=== PATIENT | male | born 1960 | race American Indian/Alaskan Native ===

== ENCOUNTER 2018-12-21 16:33 | Inpatient (IN) | payer OTHER ==
[2018-12-21] MEDS ORDERED: NACL 0.9% 1000 ML 1,000 ML IV ONE ×3 (16:42→18:44)
--- NOTE | 2018-12-21 16:46 | Emergency Department Report ---
ED General Adult HPI - General Stated complaint: HIGH BLOOD SUGAR Time Seen by Provider: 12/21/18 16:41 Source: patient, EMS Mode of arrival: Stretcher Limitations: No Limitations - History of Present Illness Initial comments: Patient is a 58-year-old male presents emergency room with complaints of weakness and lightheadedness 1 week. Patient states he ran out of his diabetes and high blood pressure medication. Patient denies chest pain shortness of breath. Patient has been having some nausea and vomiting. Patient states he has been drinking today. Patient denies smoking. Patient states his symptoms are better with rest and worse with exertion and movement. -: Sudden Quality: constant Consistency: constant Improves with: rest Worsens with: movement Associated Symptoms: nausea/vomiting, weakness. denies: confusion, chest pain, cough, diaphoresis, fever/chills, headaches, loss of appetite, malaise, rash, seizure, shortness of breath, syncope - Related Data Allergies Allergy/AdvReac Type Severity Reaction Status Date / Time No Known Allergies Allergy Verified 12/21/18 18:50 ED Review of Systems ROS: Stated complaint: HIGH BLOOD SUGAR Other details as noted in HPI Constitutional: weakness. denies: chills, fever Eyes: denies: eye pain, eye discharge, vision change ENT: denies: ear pain, throat pain Respiratory: denies: cough, shortness of breath, wheezing Cardiovascular: denies: chest pain, palpitations Endocrine: no symptoms reported Gastrointestinal: denies: abdominal pain, nausea, diarrhea Genitourinary: denies: urgency, dysuria Musculoskeletal: denies: back pain, joint swelling, arthralgia Skin: denies: rash, lesions Neurological: weakness. denies: headache, paresthesias Psychiatric: denies: anxiety, depression Hematological/Lymphatic: denies: easy bleeding, easy bruising ED Past Medical Hx - Past Medical History Previous Medical History?: Yes Hx Hypertension: Yes Hx Diabetes: Yes - Surgical History Past Surgical History?: No - Family History Family history: no significant - Social History Smoking Status: Never Smoker Substance Use Type: Alcohol ED Physical Exam - General Limitations: No Limitations General appearance: alert, in no apparent distress - Head Head exam: Present: atraumatic, normocephalic - Eye Eye exam: Present: normal appearance - ENT ENT exam: Present: mucous membranes dry - Neck Neck exam: Present: normal inspection - Respiratory Respiratory exam: Present: normal lung sounds bilaterally. Absent: respiratory distress, wheezes, rales - Cardiovascular Cardiovascular Exam: Present: regular rate, normal rhythm. Absent: systolic murmur, diastolic murmur, rubs, gallop - GI/Abdominal GI/Abdominal exam: Present: soft, normal bowel sounds. Absent: distended, tenderness, guarding - Rectal Rectal exam: Present: deferred - Extremities Exam Extremities exam: Present: normal inspection - Back Exam Back exam: Present: normal inspection - Neurological Exam Neurological exam: Present: alert, oriented X3 - Psychiatric Psychiatric exam: Present: normal affect, normal mood - Skin Skin exam: Present: warm, dry, intact, normal color. Absent: rash ED Course Vital Signs 12/21/18 12/21/18 12/21/18 16:53 16:55 17:15 Temperature Pulse Rate 94 H 95 H 97 H Respiratory 22 18 Rate Blood Pressure 150/79 Blood Pressure 150/79 [Left] O2 Sat by Pulse 100 95 Oximetry 12/21/18 12/21/18 12/21/18 17:26 17:28 18:18 Temperature 94.8 F L Pulse Rate 106 H Respiratory 22 21 Rate Blood Pressure Blood Pressure 159/104 [Left] O2 Sat by Pulse 98 100 Oximetry 12/21/18 12/21/18 12/21/18 18:31 18:45 19:00 Temperature 95.7 F L Pulse Rate 108 H 104 H 101 H Respiratory 25 H 22 19 Rate Blood Pressure 159/104 129/73 Blood Pressure 129/73 [Left] O2 Sat by Pulse 100 100 100 Oximetry 12/21/18 12/21/18 12/21/18 19:15 19:31 20:02 Temperature Pulse Rate 100 H 101 H Respiratory 24 21 Rate Blood Pressure 132/88 Blood Pressure [Left] O2 Sat by Pulse 100 100 Oximetry - Reevaluation(s) Reevaluation #1: I discussed all results with patient. I discussed plan of care outpatient. Patient agrees with plan of care and admission. Patient will be admitted to the hospital service. 12/21/18 18:46 - Consultations Consultation #1: Hospitalist consultation for admission. Hospitalist to admit patient and assume care of patient. 12/21/18 18:47 ED Medical Decision Making - Lab Data Result diagrams: 12/21/18 17:11 07/26/19 00:26 - EKG Data -: EKG Interpreted by Me EKG shows normal: sinus rhythm, axis, intervals, QRS complexes, ST-T waves Rate: normal - Radiology Data Radiology results: report reviewed, image reviewed interpreted by me: No acute findings on chest x-ray CHEST 1 VIEW INDICATION / CLINICAL INFORMATION: Lightheadedness. COMPARISON: None available. FINDINGS: SUPPORT DEVICES: None. HEART / MEDIASTINUM: No significant abnormality. LUNGS / PLEURA: No significant pulmonary or pleural abnormality. No pneumothorax. ADDITIONAL FINDINGS: No significant additional findings. IMPRESSION: 1. No acute findings. Nonenhanced CT scan of the brain: INDICATION: Lightheadedness. TECHNIQUE: Routine CT head without contrast. Sagittal and coronal reformatted images were obtained. All CT scans at this location are performed using CT dose reduction for ALARA by means of automated exposure control. COMPARISON: None. FINDINGS: BRAIN / INTRACRANIAL CONTENTS: No acute hemorrhage, mass effect, midline shift, hydrocephalus, or acute, large territorial infarct. Focal white matter low density areas seen in the posterior moran radiata the left side. This is a focal area of chronic ischemia. Mild cortical involution is seen. No significant white matter abnormality CRANIOCERVICAL JUNCTION: No significant abnormality. ORBITS: No significant abnormality of visualized orbits. SINUSES / MASTOIDS: No significant abnormality of the visualized paranasal sinuses or mastoid air cells. ADDITIONAL FINDINGS: None. IMPRESSION: I do not see an acute parenchymal lesion in the brain. - Medical Decision Making Patient is a 58-year-old male that presents to emergency with complaints of weakness and lightheadedness. Patient's symptoms. He secondary to DKA. Patient severely acidotic with elevated sugar and low bicarbonate. Patient's lab review. Patient's chest x-ray negative. Patient admitted to the hospitalist service. Patient started on DKA protocol including an insulin drip. Patient's temperature was low and patient was given warm blankets and His temperature improved. - Differential Diagnosis DKA. Weakness. Lightheadedness. Noncompliance Critical Care Time: Yes Critical care attestation.: If time is entered above; I have spent that time in minutes in the direct care of this critically ill patient, excluding procedure time. Critical Care Time: 45 minutes ED Disposition Clinical Impression: Lightheadedness, Weakness, Non-compliant patient, Hyperkalemia, Metabolic acidosis DKA (diabetic ketoacidoses) Qualifiers: Diabetes mellitus type: type 2 Diabetes mellitus complication detail: without coma Qualified Code(s): E11.10 - Type 2 diabetes mellitus with ketoacidosis without coma Acute renal failure Qualifiers: Acute renal failure type: unspecified Qualified Code(s): N17.9 - Acute kidney failure, unspecified Hypothermia Qualifiers: Encounter type: initial encounter Qualified Code(s): T68.XXXA - Hypothermia, initial encounter Disposition: DC-09 OP ADMIT IP TO THIS HOSP Is pt being admited?: Yes Does the pt Need Aspirin: No Condition: Critical Time of Disposition: 18:46
--- NOTE | 2018-12-21 17:13 | XRay Report ---
CHEST 1 VIEW INDICATION / CLINICAL INFORMATION: Lightheadedness. COMPARISON: None available. FINDINGS: SUPPORT DEVICES: None. HEART / MEDIASTINUM: No significant abnormality. LUNGS / PLEURA: No significant pulmonary or pleural abnormality. No pneumothorax. ADDITIONAL FINDINGS: No significant additional findings. IMPRESSION: 1. No acute findings. Signer Name: Kvng Gonzalez MD Signed: 12/21/2018 5:09 PM Workstation Name: [id number]
[2018-12-21 17:33] LABS: Basophils # (Auto) 0.1 K/mm3 (0.0-0.1); Basophils % (Auto) 0.9 % (0.0-1.8); Hematocrit 43.6 % (35.5-45.6); Hemoglobin 14.6 gm/dl (11.8-15.2); Lymphocytes # (Auto) 0.8 K/mm3 (1.2-5.4); Lymphocytes % (Auto) 11.4 % (13.4-35.0); Mean Corpuscular HGB Conc 34 % (32-34); Mean Corpuscular Volume 104 fl (84-94); Monocytes # (Auto) 0.3 K/mm3 (0.0-0.8); Monocytes % (Auto) 4.7 % (0.0-7.3); Red Blood Count 4.22 M/mm3 (3.65-5.03); Red Cell Distribution Width 15.4 % (13.2-15.2)
[2018-12-21 17:45] LABS: Platelet Count 239 K/mm3 (140-440)
[2018-12-21 17:56] LABS: Creatine Kinase MB 2.6 ng/mL (0.0-4.0)
[2018-12-21 17:57] LABS: Alanine Aminotransferase 16 units/L (7-56); Albumin 4.8 g/dL (3.9-5); BUN/Creatinine Ratio 14; Blood Urea Nitrogen 33 mg/dL (9-20); Calcium 10.5 mg/dL (8.4-10.2); Hemolysis Index 33
[2018-12-21] MEDS ORDERED: D50W (25GM) Syringe IV PRN (18:44)
[2018-12-21 18:54] LABS: Bacteria,Urine 1+ /HPF (Negative); Bilirubin,Urine NEG (Negative); Blood,Urine MOD (Negative); Color,Urine Yellow (Yellow); Hyaline Casts,Urine 4 /LPF; Mucus,Urine FEW /HPF; RBC,Urine < 1.0 /HPF (0.0-6.0); Urobilinogen,Urine < 2.0 mg/dL (<2.0)
[2018-12-21] MEDS ORDERED: SODIUM CHLORIDE FLUSH SYRINGE 10 ML IV PRN (19:17)
--- NOTE | 2018-12-21 19:21 | History and Physical Report ---
History of Present Illness Chief complaint: I feel like crap History of present illness: 58 YO Male with DM,HTN presents to ED for evaluation. Pt states that he ran out of all his medications approximately 1 week ago. Pt reports nausea and multiple episodes of vomiting over the past 2 days with worsening symptoms over the same time frame. Pt acknowledges polyuria, polydipsia, polyphagia. Pt acknowledges ETOH intake today. EMS notified, and upon arrival the patient was found to be in distress and transported to [facility]. Pt seen and evaluated in ED and found to have DKA complicated by Acute Kidney Injury, and Metabolic Acidosis. Pt initiated on DKA protocol and admitted to ICU. Pt treated with IVF resuscitation therapy with improvement in symptoms. Pt denies fever, chills, CP, Palpitations, Trauma, BRBPR, Skin rash, ingestion of food/water from new/different sources. No prior admission for review. All listed medication reconciled at time of exam. Past History Past Medical History: diabetes, hypertension Past Surgical History: No surgical history, Other (reviewed) Social history: single, alcohol abuse. denies: smoking Family history: diabetes, hypertension Medications and Allergies Allergies Allergy/AdvReac Type Severity Reaction Status Date / Time No Known Allergies Allergy Verified 12/21/18 18:50 Active Meds: Active Medications Dextrose (D50w (25gm) Syringe) 0 ml IV PRN PRN PRN Reason: Hypoglycemia Insulin Human Regular 100 (units/ Sodium Chloride) 100 mls @ 1 mls/hr IV TITR JOSELINE; Protocol Sodium Chloride (Nacl 0.9% 1000 Ml) 1,000 mls @ 999 mls/hr IV BOLUS ONE Stop: 12/21/18 19:44 Sodium Chloride (Sodium Chloride Flush Syringe 10 Ml) 10 ml IV BID JOSELINE Sodium Chloride (Sodium Chloride Flush Syringe 10 Ml) 10 ml IV PRN PRN PRN Reason: LINE FLUSH Review of Systems Constitutional: no weight loss, no weight gain, no fever, no chills Ears, nose, mouth and throat: no ear pain, no ear discharge, no tinnitis, no decreased hearing, no nose pain Cardiovascular: no chest pain, no orthopnea, no edema, no syncope Respiratory: no cough, no cough with sputum, no excessive sputum Gastrointestinal: nausea, vomiting, no abdominal pain, no diarrhea, no constipation, no hematemesis, no coffee ground emesis Genitourinary Male: no dysuria, no hematuria, no flank pain, no discharge, no urinary hesitancy Rectal: no pain, no incontinence, no bleeding Musculoskeletal: no neck pain, no shooting arm pain, no arm numbness/tingling, no low back pain, no shooting leg pain, no redness of joints Integumentary: no rash, no pruritis, no redness, no sores, no wounds, no j aundice Neurological: no head injury, no transient paralysis, no weakness, no parathesias, no numbness, no tingling, no syncope Psychiatric: no anxiety, no change in sleep habits, no sleep disturbances, no change in appetite Endocrine: polyphagia, excessive thirst, polydipsia, polyuria, nocturia, no cold intolerance, no heat intolerance, no flushing, no weight change Hematologic/Lymphatic: no easy bruising, no easy bleeding, no lymphadenopathy, no lymphedema Allergic/Immunologic: no urticaria, no allergic rhinitis, no wheezing Exam - Constitutional Vitals: Temp Pulse Resp BP Pulse Ox 94.8 F L 106 H 21 159/104 100 12/21/18 17:28 12/21/18 18:18 12/21/18 18:18 12/21/18 18:18 12/21/18 18:18 General appearance: Present: mild distress, cachectic - EENT Eyes: Present: PERRL ENT: hearing intact, clear oral mucosa - Neck Neck: Present: supple, normal ROM - Respiratory Respiratory effort: normal Respiratory: bilateral: CTA - Cardiovascular Heart Sounds: Present: S1 & S2. Absent: rub, click - Extremities Extremities: pulses symmetrical, No edema Peripheral Pulses: within normal limits - Abdominal General gastrointestinal: Present: soft, non-tender, non-distended, normal bowel sounds Male genitourinary: Present: normal - Integumentary Integumentary: Present: clear, warm, dry - Musculoskeletal Musculoskeletal: gait normal, strength equal bilaterally - Psychiatric Psychiatric: appropriate mood/affect, intact judgment & insight - Neurologic Neurologic: CNII-XII intact, moves all extremities Results - Labs CBC & Chem 7: 12/21/18 17:11 12/21/18 18:53 Labs: Abnormal lab results 12/21/18 12/21/18 12/21/18 Range/Units 17:05 17:11 17:11 MCV 104 H (84-94) fl MCH 35 H (28-32) pg RDW 15.4 H (13.2-15.2) % Lymph % (Auto) 11.4 L (13.4-35.0) % Lymph # 0.8 L (1.2-5.4) K/mm3 Seg Neutrophils % 83.0 H (40.0-70.0) % VBG pH (7.320-7.420) Potassium (3.6-5.0) mmol/L Chloride (98-107) mmol/L Carbon Dioxide (22-30) mmol/L BUN (9-20) mg/dL Creatinine (0.8-1.5) mg/dL Glucose (75-100) mg/dL POC Glucose > 500 H (70-105) Lactic Acid (0.7-2.0) mmol/L Calcium (8.4-10.2) mg/dL Total Creatine Kinase 32 L (55-170) units/L CK-MB (CK-2) Rel Index 8.1 H (0-4) Total Protein (6.3-8.2) g/dL 12/21/18 12/21/18 12/21/18 Range/Units 17:11 17:11 17:11 MCV (84-94) fl MCH (28-32) pg RDW (13.2-15.2) % Lymph % (Auto) (13.4-35.0) % Lymph # (1.2-5.4) K/mm3 Seg Neutrophils % (40.0-70.0) % VBG pH 7.018 L* (7.320-7.420) Potassium 5.7 H (3.6-5.0) mmol/L Chloride 94.7 L (98-107) mmol/L Carbon Dioxide 3 L* (22-30) mmol/L BUN 33 H (9-20) mg/dL Creatinine 2.4 H (0.8-1.5) mg/dL Glucose 770 H* (75-100) mg/dL POC Glucose (70-105) Lactic Acid 3.60 H* (0.7-2.0) mmol/L Calcium 10.5 H (8.4-10.2) mg/dL Total Creatine Kinase (55-170) units/L CK-MB (CK-2) Rel Index (0-4) Total Protein 8.7 H (6.3-8.2) g/dL 12/21/18 12/21/18 Range/Units 17:55 19:18 MCV (84-94) fl MCH (28-32) pg RDW (13.2-15.2) % Lymph % (Auto) (13.4-35.0) % Lymph # (1.2-5.4) K/mm3 Seg Neutrophils % (40.0-70.0) % VBG pH (7.320-7.420) Potassium (3.6-5.0) mmol/L Chloride (98-107) mmol/L Carbon Dioxide (22-30) mmol/L BUN (9-20) mg/dL Creatinine (0.8-1.5) mg/dL Glucose (75-100) mg/dL POC Glucose > 500 H (70-105) Lactic Acid 3.80 H* (0.7-2.0) mmol/L Calcium (8.4-10.2) mg/dL Total Creatine Kinase (55-170) units/L CK-MB (CK-2) Rel Index (0-4) Total Protein (6.3-8.2) g/dL Assessment and Plan - Patient Problems (1) TWIN (acute kidney injury) Current Visit: Yes Status: Acute Plan to address problem: IVF resuscitation therapy, monitor uop q shift, (2) EtOH dependence Current Visit: Yes Status: Acute Qualifiers: Complication of substance-induced condition: uncomplicated Plan to address problem: BAnana bag, CIWA protocol, thiamine, folic acid, multivitamin daily (3) DKA (diabetic ketoacidoses) Current Visit: No Status: Acute Qualifiers: Diabetes mellitus type: type 2 Diabetes mellitus complication detail: without coma Qualified Code(s): E11.10 - Type 2 diabetes mellitus with ketoacidosis without coma Plan to address problem: Admit to ICU: DKA protocol: IVF resuscitation therapy, Insulin drip, serial bmp, monitor anion gap, The high probability of a clinically significant, sudden or life threatening deterioration of the [endocrine, renal, neuro] system(s) required my full and direct attention, intervention and personal management. The aggregate critical care time was [65] minutes. This time is in addition to time spent performing reported procedures but includes the following: [x] Data Review and interpretation [x] Patient assessment and monitoring of vital signs [x] Documentation [x] Medication orders and management (4) Metabolic acidosis Current Visit: No Status: Acute Plan to address problem: IVF resuscitation therapy, treat dka, repeat bmp (5) DVT prophylaxis Current Visit: Yes Status: Acute Plan to address problem: SCD to BLE while in bed. prophylacitic heparin
[2018-12-21 19:23] LABS: Calcium 9.5 mg/dL (8.4-10.2)
[2018-12-21 19:30] LABS: Amphetamine Screen,Urine PRESUMPTIVE NEGATIVE; Benzodiazepines Screen,Urine PRESUMPTIVE NEGATIVE; Cannabinoid Screen,Urine PRESUMPTIVE NEGATIVE; Cocaine Screen,Urine PRESUMPTIVE NEGATIVE; Methadone Screen,Urine PRESUMPTIVE NEGATIVE; Opiate Screen,Urine PRESUMPTIVE NEGATIVE
[2018-12-21] MEDS: HumuLIN R 100 UNITS in NACL 0.9% 99 ML IV SCH (20:20)
--- NOTE | 2018-12-21 20:21 | Cat Scan Report ---
Nonenhanced CT scan of the brain: INDICATION: Lightheadedness. TECHNIQUE: Routine CT head without contrast. Sagittal and coronal reformatted images were obtained. A ll CT scans at this location are performed using CT dose reduction for ALARA by means of automated ex posure control. COMPARISON: None. FINDINGS: BRAIN / INTRACRANIAL CONTENTS: No acute hemorrhage, mass effect, midline shift, hydrocephalus, or acu te, large territorial infarct. Focal white matter low density areas seen in the posterior moran radi anthony the left side. This is a focal area of chronic ischemia. Mild cortical involution is seen. No sig nificant white matter abnormality CRANIOCERVICAL JUNCTION: No significant abnormality. ORBITS: No significant abnormality of visualized orbits. SINUSES / MASTOIDS: No significant abnormality of the visualized paranasal sinuses or mastoid air kely ls. ADDITIONAL FINDINGS: None. IMPRESSION: I do not see an acute parenchymal lesion in the brain. Signer Name: Chiquita Grewal MD Signed: 12/21/2018 8:17 PM Workstation Name: [id number]
[2018-12-21] MEDS ORDERED: ATIVAN IV PRN (20:31)
[2018-12-21 20:42] LABS: Calcium 9.9 mg/dL (8.4-10.2)
[2018-12-21] MEDS ORDERED: VITAMIN B-1 100 MG, FOLVITE 1 MG, INFUVITE 10 ML in NACL 0.9% 1000 ML 1,000 ML IV ONE (21:00)
[2018-12-21] MEDS: SODIUM CHLORIDE FLUSH SYRINGE 10 ML IV SCH (21:22)
[2018-12-21] MEDS: HEPARIN SUB-Q SCH (21:33)
[2018-12-21 23:18] LABS: Calcium 9.6 mg/dL (8.4-10.2)
[2018-12-22 00:47] LABS: Calcium 9.7 mg/dL (8.4-10.2)
[2018-12-22 05:46] LABS: Calcium 9.9 mg/dL (8.4-10.2)
[2018-12-22] MEDS: HumuLIN R 100 UNITS in NACL 0.9% 99 ML IV SCH (08:05)
[2018-12-22] MEDS: D5/0.45NS 1,000 ML IV SCH ×2 (08:20→17:03)
[2018-12-22] MEDS: THERAGRAN Tab PO SCH (09:43)
[2018-12-22] MEDS: HEPARIN SUB-Q SCH ×2 (09:43→22:04)
[2018-12-22] MEDS: FOLVITE PO SCH (09:43)
[2018-12-22] MEDS: VITAMIN B-1 PO SCH (09:43)
[2018-12-22] MEDS: SODIUM CHLORIDE FLUSH SYRINGE 10 ML IV SCH ×2 (09:44→22:06)
[2018-12-22 12:26] LABS: Calcium 10.2 mg/dL (8.4-10.2)
--- NOTE | 2018-12-22 12:57 | Consultation ---
History of Present Illness Consult date: 12/22/18 Requesting physician: SONIA CHAMORRO Reason for consult: other (DKA, Alcohol use disorder, Acute renal failure) History of present illness: 58 YO Male with DM,HTN presents to ED for evaluation. Pt states that he ran out of all his medications approximately 1 week ago. Patient reported nausea and multiple episodes of vomiting over the past 2 days with worsening symptoms over the same time frame. Patient acknowledges polyuria, polydipsia, polyphagia. Pt acknowledges ETOH intake today. EMS notified, and upon arrival the patient was found to be in distress and transported to [facility]. Patient was seen and evaluated in ED and found to have DKA complicated by Acute Kidney Injury, and Metabolic Acidosis. Pt initiated on DKA protocol and admitted to ICU. I have been consulted for critical care management. Patient was seen and examined. Vitals, labs, medications, chart and imaging reviewed. He is resting peacefully in bed, on insulin infusion at 4units/hour, AG of 25 with improving creatinine at 1.8. He has received a banana bag and is currently on CIWA protocol. REVIEW OF SYMPTOMS Constitutional: no weight loss, no weight gain, no fever, no chills Ears, nose, mouth and throat: no ear pain, no ear discharge, no tinnitis, no decreased hearing, no nose pain Cardiovascular: no chest pain, no orthopnea, no edema, no syncope Respiratory: no cough, no cough with sputum, no excessive sputum Gastrointestinal: nausea, vomiting, no abdominal pain, no diarrhea, no constipation, no hematemesis, no coffee ground emesis Genitourinary Male: no dysuria, no hematuria, no flank pain, no discharge, no urinary hesitancy Rectal: no pain, no incontinence, no bleeding Musculoskeletal: no neck pain, no shooting arm pain, no arm numbness/tingling, no low back pain, no shooting leg pain, no redness of joints Integumentary: no rash, no pruritis, no redness, no sores, no wounds, no bernice dice Neurological: no head injury, no transient paralysis, no weakness, no parathesias, no numbness, no tingling, no syncope Psychiatric: no anxiety, no change in sleep habits, no sleep disturbances, no change in appetite Endocrine: polyphagia, excessive thirst, polydipsia, polyuria, nocturia, no cold intolerance, no heat intolerance, no flushing, no weight change Past History Past Medical History: diabetes, hypertension Past Surgical History: No surgical history, Other (reviewed) Social history: single, alcohol abuse. denies: smoking Family history: diabetes, hypertension Medications and Allergies Allergies Allergy/AdvReac Type Severity Reaction Status Date / Time No Known Allergies Allergy Verified 12/21/18 18:50 Home Medications Medication Instructions Recorded Confirmed Last Taken Type No Known Home Medications [No 12/22/18 12/22/18 Unknown History Reported Home Medications] Active Meds: Active Medications Dextrose (D50w (25gm) Syringe) 0 ml IV PRN PRN PRN Reason: Hypoglycemia Folic Acid (Folvite) 1 mg PO QDAY [facility] Last Admin: 12/22/18 09:43 Dose: 1 mg Documented by: Heparin Sodium (Porcine) (Heparin) 5,000 unit SUB-Q Q12HR [facility] Last Admin: 12/22/18 09:43 Dose: 5,000 unit Documented by: Insulin Human Regular 100 (units/ Sodium Chloride) 100 mls @ 1 mls/hr IV TITR [facility]; Protocol Last Titration: 12/22/18 11:31 Dose: 3 units/hr, 3 mls/hr Documented by: Dextrose/Sodium Chloride (D5/0.45ns) 1,000 mls @ 125 mls/hr IV DIRECT [facility]SE[facility] Last Admin: 12/22/18 08:20 Dose: 125 mls/hr Documented by: Lorazepam (Ativan) 2 mg IV Q1HR PRN PRN Reason: CIWA-Ar 8-15 Multivitamins (Theragran Tab) 1 each PO QDAY [facility] Last Admin: 12/22/18 09:43 Dose: 1 each Documented by: Sodium Chloride (Sodium Chloride Flush Syringe 10 Ml) 10 ml IV BID [facility] Last Admin: 12/22/18 09:44 Dose: 10 ml Documented by: Sodium Chloride (Sodium Chloride Flush Syringe 10 Ml) 10 ml IV PRN PRN PRN Reason: LINE FLUSH Thiamine HCl (Vitamin B-1) 100 mg PO QDAY [facility] Last Admin: 12/22/18 09:43 Dose: 100 mg Documented by: Physical Examination Vital signs: Vital Signs Pulse 94 H 12/21/18 16:53 General appearance: Present:no distress, dishevelled - EENT Eyes: Present: PERRL ENT: hearing intact, clear oral mucosa - Neck Neck: Present: supple, normal ROM - Respiratory Respiratory effort: normal Respiratory: bilateral: CTA - Cardiovascular Heart Sounds: Present: S1 & S2. Absent: rub, click - Extremities Extremities: pulses symmetrical, No edema Peripheral Pulses: within normal limits - Abdominal General gastrointestinal: Present: soft, non-tender, non-distended, normal bowel sounds Male genitourinary: Present: normal - Integumentary Integumentary: Present: clear, warm, dry - Musculoskeletal Musculoskeletal: gait normal, strength equal bilaterally - Psychiatric Psychiatric: appropriate mood/affect, intact judgment & insight - Neurologic Neurologic: CNII-XII intact, moves all extremities Results - Laboratory Findings CBC and BMP: 12/21/18 17:11 12/22/18 11:22 Abnormal lab findings: Abnormal Labs 12/21/18 12/21/18 12/21/18 17:05 17:11 17:11 MCV 104 H MCH 35 H RDW 15.4 H Lymph % (Auto) 11.4 L Lymph # 0.8 L Seg Neutrophils % 83.0 H VBG pH Sodium Potassium Chloride Carbon Dioxide BUN Creatinine Glucose POC Glucose > 500 H Lactic Acid Calcium Phosphorus Total Creatine Kinase 32 L CK-MB (CK-2) Rel Index 8.1 H Total Protein 12/21/18 12/21/18 12/21/18 17:11 17:11 17:11 MCV MCH RDW Lymph % (Auto) Lymph # Seg Neutrophils % VBG pH 7.018 L* Sodium Potassium 5.7 H Chloride 94.7 L Carbon Dioxide 3 L* BUN 33 H Creatinine 2.4 H Glucose 770 H* POC Glucose Lactic Acid 3.60 H* Calcium 10.5 H Phosphorus Total Creatine Kinase CK-MB (CK-2) Rel Index Total Protein 8.7 H 12/21/18 12/21/18 12/21/18 17:55 18:53 18:53 MCV MCH RDW Lymph % (Auto) Lymph # Seg Neutrophils % VBG pH Sodium Potassium Chloride Carbon Dioxide BUN Creatinine Glucose POC Glucose Lactic Acid 3.80 H* 2.50 H* Calcium Phosphorus 5.90 H Total Creatine Kinase CK-MB (CK-2) Rel Index Total Protein 12/21/18 12/21/18 12/21/18 18:53 19:18 19:58 MCV MCH RDW Lymph % (Auto) Lymph # Seg Neutrophils % VBG pH Sodium Potassium Chloride Carbon Dioxide 4 L* BUN 32 H Creatinine 2.1 H Glucose 696 H* POC Glucose > 500 H Lactic Acid 2.10 H* Calcium Phosphorus Total Creatine Kinase CK-MB (CK-2) Rel Index Total Protein 12/21/18 12/21/18 12/21/18 21:50 22:43 22:43 MCV MCH RDW Lymph % (Auto) Lymph # Seg Neutrophils % VBG pH Sodium Potassium Chloride Carbon Dioxide 6 L* BUN 31 H Creatinine 2.0 H Glucose 536 H* POC Glucose 466 H Lactic Acid 2.20 H* Calcium Phosphorus Total Creatine Kinase CK-MB (CK-2) Rel Index Total Protein 12/21/18 12/21/18 12/21/18 23:20 23:53 Unknown MCV MCH RDW Lymph % (Auto) Lymph # Seg Neutrophils % VBG pH Sodium Potassium Chloride Carbon Dioxide 4 L* BUN 31 H Creatinine 2.1 H Glucose 670 H* POC Glucose 442 H 384 H Lactic Acid Calcium Phosphorus Total Creatine Kinase CK-MB (CK-2) Rel Index Total Protein 12/22/18 12/22/18 12/22/18 00:26 01:12 02:11 MCV MCH RDW Lymph % (Auto) Lymph # Seg Neutrophils % VBG pH Sodium Potassium Chloride 109.2 H Carbon Dioxide 7 L* BUN 30 H Creatinine 1.8 H Glucose 441 H POC Glucose 345 H 342 H Lactic Acid Calcium Phosphorus Total Creatine Kinase CK-MB (CK-2) Rel Index Total Protein 12/22/18 12/22/18 12/22/18 03:06 04:09 04:49 MCV MCH RDW Lymph % (Auto) Lymph # Seg Neutrophils % VBG pH Sodium 149 H Potassium Chloride 115.8 H Carbon Dioxide 12 L BUN 29 H Creatinine 1.8 H Glucose 298 H POC Glucose 314 H 308 H Lactic Acid Calcium Phosphorus Total Creatine Kinase CK-MB (CK-2) Rel Index Total Protein 12/22/18 12/22/18 12/22/18 05:10 05:47 10:06 MCV MCH RDW Lymph % (Auto) Lymph # Seg Neutrophils % VBG pH Sodium Potassium Chloride Carbon Dioxide BUN Creatinine Glucose POC Glucose 277 H 252 H 185 H Lactic Acid Calcium Phosphorus Total Creatine Kinase CK-MB (CK-2) Rel Index Total Protein 12/22/18 12/22/18 11:22 12:29 MCV MCH RDW Lymph % (Auto) Lymph # Seg Neutrophils % VBG pH Sodium 151 H Potassium 3.5 L Chloride 119.4 H Carbon Dioxide 16 L BUN 26 H Creatinine 1.6 H Glucose 182 H POC Glucose 170 H Lactic Acid Calcium Phosphorus Total Creatine Kinase CK-MB (CK-2) Rel Index Total Protein - Diagnostic Findings Chest x-ray: image reviewed (Low lung volumes) Assessment and Plan Diabetic ketoacidosis Acute renal failure Alcohol use disorder Hypernatremia Nausea and vomiting -Treatment per DKA protocol -Serial BMPs -IVF and insulin infusion,m once AG is closed transition to basal bolus insulin -Monitor renal indices, avoid nephrotoxins and adjust all medications for CrCL and GFR -VTE prophylaxis, on heparin -Alcohol withdrawal precatuions, CIWA protocol -Electrolyte management/replacement protocols -Alcohol use counselling once he has improved -Continue ICU care, until he is off insulin infusion. All other care per primary service.
--- NOTE | 2018-12-22 13:49 | Progress Note ---
Assessment and Plan Assessment and plan: 58 YO Male with DM, HTN presents to ED for evaluation. Pt states that he ran out of all his medications approximately 1 week ago. Pt reports nausea and multiple episodes of vomiting over the past 2 days with worsening symptoms over the same time frame. Pt acknowledges polyuria, polydipsia, polyphagia. Pt acknowledges ETOH intake today. EMS notified, and upon arrival the patient was found to be in distress and transported to [facility]. Pt seen and evaluated in ED and found to have DKA complicated by Acute Kidney Injury, and Metabolic Acidosis. Pt initiated on DKA protocol and admitted to ICU. Pt treated with IVF resuscitation therapy with improvement in symptoms. Pt denies fever, chills, CP, Palpitations, Trauma, BRBPR, Skin rash, ingestion of food/water from new/different sources. No prior admission for review. All listed medication reconciled at time of exam. Diabetic ketoacidosis Acute Kidney Injury secondary to vasomotor Nephropathy Alcohol use disorder Acute Metabolic Acidosis secondary to DKA Hypernatremia Hypokalemia Gastroenteritis Wit associated Nausea vomiting Plan Continue DKA protocol Transition once AG is closed Continue to monitor ELectrolytes and Na LEVEL Replace K ETOH Withdrawal Protocol DVT/GI prophy The high probability of a clinically significant, sudden or life threatening deterioration of the [endocrine, renal, neuro] system(s) required my full and direct attention, intervention and personal management. The aggregate critical care time was [65] minutes. This time is in addition to time spent performing reported procedures but includes the following: [x] Data Review and interpretation [x] Patient assessment and monitoring of vital signs [x] Documentation [x] Medication orders and management History Interval history: Patient seen and examined, remains lethargic, no new complaint from nursing staff. Hospitalist Physical - Physical exam Narrative exam: VITAL SIGNS: Reviewed. GENERAL: The patient appears normally disheveled, Vital signs as documented. HEAD: No signs of head trauma. EYES: Pupils are equal. Extraocular motions intact. EARS: Hearing grossly intact. MOUTH: Oropharynx is normal. NECK: No adenopathy, no JVD. CHEST: Chest with clear breath sounds bilaterally. No wheezes, rales, or rhonchi. CARDIAC: Regular rate and rhythm. S1 and S2, without murmurs, gallops, or rubs. VASCULAR: No Edema. Peripheral pulses normal and equal in all extremities. ABDOMEN: Soft, non tender and non distended. No rebound or guarding, and no masses palpated. Bowel Sounds normal. MUSCULOSKELETAL: Good range of motion of all major joints. Extremities without clubbing, cyanosis or edema. NEUROLOGIC EXAM: Alert and oriented x 3 No focal sensory or strength deficits. Speech normal. Follows commands. PSYCHIATRIC: Mood normal. SKIN: detail exam as documented in skin assessment - Constitutional Vitals: Temp Pulse Resp BP Pulse Ox 97.4 F L 96 H 19 132/88 100 12/22/18 08:00 12/21/18 22:00 12/22/18 06:00 12/21/18 20:02 12/22/18 06:00 General appearance: Present: mild distress, cachectic Results - Labs CBC & Chem 7: 12/21/18 17:11 12/22/18 11:22 Labs: Laboratory Last Values WBC 6.9 K/mm3 (4.5-11.0) 12/21/18 17:11 RBC 4.22 M/mm3 (3.65-5.03) 12/21/18 17:11 Hgb 14.6 gm/dl (11.8-15.2) 12/21/18 17:11 Hct 43.6 % (35.5-45.6) 12/21/18 17:11 MCV 104 fl (84-94) H 12/21/18 17:11 MCH 35 pg (28-32) H 12/21/18 17:11 MCHC 34 % (32-34) 12/21/18 17:11 RDW 15.4 % (13.2-15.2) H 12/21/18 17:11 Plt Count 239 K/mm3 (140-440) 12/21/18 17:11 Lymph % (Auto) 11.4 % (13.4-35.0) L 12/21/18 17:11 [place] % (Auto) 4.7 % (0.0-7.3) 12/21/18 17:11 Eos % (Auto) 0.0 % (0.0-4.3) 12/21/18 17:11 Baso % (Auto) 0.9 % (0.0-1.8) 12/21/18 17:11 Lymph # 0.8 K/mm3 (1.2-5.4) L 12/21/18 17:11 [place] # 0.3 K/mm3 (0.0-0.8) 12/21/18 17:11 Eos # 0.0 K/mm3 (0.0-0.4) 12/21/18 17:11 Baso # 0.1 K/mm3 (0.0-0.1) 12/21/18 17:11 Seg Neutrophils % 83.0 % (40.0-70.0) H 12/21/18 17:11 Seg Neutrophils # 5.7 K/mm3 (1.8-7.7) 12/21/18 17:11 VBG pH 7.018 (7.320-7.420) L* 12/21/18 17:11 Sodium 151 mmol/L (137-145) H 12/22/18 11:22 Potassium 3.5 mmol/L (3.6-5.0) L 12/22/18 11:22 Chloride 119.4 mmol/L (98-107) H 12/22/18 11:22 Carbon Dioxide 16 mmol/L (22-30) L 12/22/18 11:22 19 mmol/L 12/22/18 11:22 BUN 26 mg/dL (9-20) H 12/22/18 11:22 1.6 mg/dL (0.8-1.5) H 12/22/18 11:22 Estimated GFR 54 ml/min 12/22/18 11:22 16 % 12/22/18 11:22 Glucose 182 mg/dL (75-100) H 12/22/18 11:22 POC Glucose 170 (70-105) H 12/22/18 12:29 Lactic Acid 1.90 mmol/L (0.7-2.0) 12/22/18 00:26 Calcium 10.2 mg/dL (8.4-10.2) 12/22/18 11:22 Phosphorus 5.90 mg/dL (2.5-4.5) H 12/21/18 18:53 Magnesium 2.00 mg/dL (1.7-2.3) 12/21/18 18:53 0.50 mg/dL (0.1-1.2) 12/21/18 17:11 AST 10 units/L (5-40) 12/21/18 17:11 ALT 16 units/L (7-56) 12/21/18 17:11 119 units/L (35-129) 12/21/18 17:11 32 units/L (55-170) L 12/21/18 17:11 CK-MB (CK-2) 2.6 ng/mL (0.0-4.0) 12/21/18 17:11 CK-MB (CK-2) Rel Index 8.1 (0-4) H 12/21/18 17:11 < 0.010 ng/mL (0.00-0.029) 12/21/18 17:11 8.7 g/dL (6.3-8.2) H 12/21/18 17:11 4.8 g/dL (3.9-5) 12/21/18 17:11 1.2 % 12/21/18 17:11 Yellow (Yellow) 12/21/18 Unknown Clear (Clear) 12/21/18 Unknown 5.0 (5.0-7.0) 12/21/18 Unknown Ur Specific [place] 1.018 (1.003-1.030) 12/21/18 Unknown 100 mg/dl mg/dL (Negative) 12/21/18 Unknown >=500 mg/dL (Negative) 12/21/18 Unknown 80 mg/dL (Negative) 12/21/18 Unknown Mod (Negative) 12/21/18 Unknown Neg (Negative) 12/21/18 Unknown Neg (Negative) 12/21/18 Unknown < 2.0 mg/dL (<2.0) 12/21/18 Unknown Ur Leukocyte Esterase Neg (Negative) 12/21/18 Unknown 1.0 /HPF (0.0-6.0) 12/21/18 Unknown < 1.0 /HPF (0.0-6.0) 12/21/18 Unknown U Epithel Cells (Auto) < 1.0 /HPF (0-13.0) 12/21/18 Unknown 1+ /HPF (Negative) 12/21/18 Unknown Hyaline Casts 4 /LPF 12/21/18 Unknown Few /HPF 12/21/18 Unknown Presumptive negative 12/21/18 Unknown Presumptive negative 12/21/18 Unknown Ur Barbiturates Screen Presumptive negative 12/21/18 Unknown Ur Phencyclidine Scrn Presumptive negative 12/21/18 Unknown Ur Amphetamines Screen Presumptive negative 12/21/18 Unknown U Benzodiazepines Scrn Presumptive negative 12/21/18 Unknown Presumptive negative 12/21/18 Unknown U Marijuana (THC) Screen Presumptive negative 12/21/18 Unknown Disclamer 12/21/18 Unknown Plasma/Serum Alcohol < 0.01 % (0-0.07) 12/21/18 17:11 Active Medications - Current Medications Current Medications: Generic Name Dose Route Start Last Admin Trade Name Freq PRN Reason Stop Dose Admin Dextrose 0 ml 12/21/18 18:44 D50w (25gm) Syringe IV PRN PRN Hypoglycemia Folic Acid 1 mg 12/22/18 10:00 12/22/18 09:43 Folvite PO 1 mg QDAY [facility] Administration Heparin Sodium (Porcine) 5,000 unit 12/21/18 22:00 12/22/18 09:43 Heparin SUB-Q 5,000 unit Q12HR [facility] Administration Insulin Human Regular 100 100 mls @ 1 mls/hr 12/21/18 19:00 12/22/18 11:31 units/ Sodium Chloride IV 12/22/18 18:59 3 units/hr TITR [facility] 3 mls/hr Titration Protocol 1 UNITS/HR Dextrose/Sodium Chloride 1,000 mls @ 125 mls/hr 12/22/18 08:00 12/22/18 08:20 D5/0.45ns IV 125 mls/hr DIRECT [facility] Administration Insulin Human Isoph/Insulin Regular 5 unit 12/22/18 14:00 Humulin 70/30 SUB-Q 12/22/18 14:01 ONCE ONE Insulin Human Isoph/Insulin Regular 10 unit 12/22/18 22:00 Humulin 70/30 SUB-Q 12/22/18 22:01 ONCE ONE Insulin Human Isoph/Insulin Regular 10 unit 12/23/18 08:00 Humulin 70/30 SUB-Q BIDDIAB [facility] Insulin Human Lispro 0 unit 12/22/18 16:30 Humalog SUB-Q ACHS [facility] Protocol Lorazepam 2 mg 12/21/18 20:31 Ativan IV Q1HR PRN CIWA-Ar 8-15 Multivitamins 1 each 12/22/18 10:00 12/22/18 09:43 Theragran Tab PO 1 each QDAY [facility] Administration Sodium Chloride 10 ml 12/21/18 22:00 12/22/18 09:44 Sodium Chloride Flush Syringe 10 Ml IV 10 ml BID [facility] Administration Sodium Chloride 10 ml 12/21/18 19:17 Sodium Chloride Flush Syringe 10 Ml IV PRN PRN LINE FLUSH Thiamine HCl 100 mg 12/22/18 10:00 12/22/18 09:43 Vitamin B-1 PO 100 mg QDAY [facility] Administration
[2018-12-22] MEDS: HumaLOG SUB-Q SCH ×2 (17:12→22:05)
[2018-12-23] MEDS: D5/0.45NS 1,000 ML IV SCH ×2 (01:25→11:23)
[2018-12-23 04:33] LABS: Hematocrit 36.8 % (35.5-45.6); Hemoglobin 12.9 gm/dl (11.8-15.2); Mean Corpuscular HGB Conc 35 % (32-34); Mean Corpuscular Volume 98 fl (84-94); Platelet Count 167 K/mm3 (140-440); Red Blood Count 3.76 M/mm3 (3.65-5.03); Red Cell Distribution Width 15.2 % (13.2-15.2)
[2018-12-23 05:16] LABS: BUN/Creatinine Ratio 13; Blood Urea Nitrogen 15 mg/dL (9-20); Calcium 9.8 mg/dL (8.4-10.2); Hemolysis Index 3
[2018-12-23] MEDS ORDERED: HumuLIN R SUB-Q NR (08:08)
[2018-12-23] MEDS ORDERED: NACL 0.9% 1000 ML 2,000 ML IV ONE (08:08)
[2018-12-23] MEDS ORDERED: HumuLIN R SUB-Q ONE (08:08)
[2018-12-23] MEDS: HumaLOG SUB-Q SCH ×4 (08:30→22:08)
[2018-12-23] MEDS: ZESTRIL PO SCH (09:00)
[2018-12-23] MEDS: FOLVITE PO SCH (09:00)
[2018-12-23] MEDS: THERAGRAN Tab PO SCH (09:00)
[2018-12-23] MEDS: VITAMIN B-1 PO SCH (09:00)
[2018-12-23] MEDS: HEPARIN SUB-Q SCH ×2 (09:01→22:08)
[2018-12-23] MEDS: SODIUM CHLORIDE FLUSH SYRINGE 10 ML IV SCH ×2 (09:02→22:10)
--- NOTE | 2018-12-23 10:15 | Progress Note ---
Assessment and Plan Assessment and plan: 58 YO Male with DM, HTN presents to ED for evaluation. Pt states that he ran out of all his medications approximately 1 week ago. Pt reports nausea and multiple episodes of vomiting over the past 2 days with worsening symptoms over the same time frame. Pt acknowledges polyuria, polydipsia, polyphagia. Pt acknowledges ETOH intake today. EMS notified, and upon arrival the patient was found to be in distress and transported to [facility]. Pt seen and evaluated in ED and found to have DKA complicated by Acute Kidney Injury, and Metabolic Acidosis. Pt initiated on DKA protocol and admitted to ICU. Pt treated with IVF resuscitation therapy with improvement in symptoms. Pt denies fever, chills, CP, Palpitations, Trauma, BRBPR, Skin rash, ingestion of food/water from new/different sources. No prior admission for review. All listed medication reconciled at time of exam. Diabetic ketoacidosis Acute Kidney Injury secondary to vasomotor Nephropathy Alcohol use disorder Acute Metabolic Acidosis secondary to DKA Hypernatremia Hypokalemia Gastroenteritis Wit associated Nausea vomiting Plan Now off DKA protocol Give 2 liter bolus of fluids start clear liquids as patient is adamant about eating Give additional insulin coverage Replace electrolytes and when stable can downgrade to the floors counselling provided 15mins ETOH Withdrawal Protocol d/w Nursing staff DVT/GI prophy The high probability of a clinically significant, sudden or life threatening deterioration of the [endocrine, renal, neuro] system(s) required my full and direct attention, intervention and personal management. The aggregate critical care time was [65] minutes. This time is in addition to time spent performing reported procedures but includes the following: [x] Data Review and interpretation [x] Patient assessment and monitoring of vital signs [x] Documentation [x] Medication orders and management History Interval history: Patient seen and examined, clinically improving. thirsty. Hospitalist Physical - Physical exam Narrative exam: VITAL SIGNS: Reviewed. GENERAL: The patient appears normally Vital signs as documented. HEAD: No signs of head trauma. EYES: Pupils are equal. Extraocular motions intact. EARS: Hearing grossly intact. MOUTH: Oropharynx is normal. NECK: No adenopathy, no JVD. CHEST: Chest with clear breath sounds bilaterally. No wheezes, rales, or rhonchi. CARDIAC: Regular rate and rhythm. S1 and S2, without murmurs, gallops, or rubs. VASCULAR: No Edema. Peripheral pulses normal and equal in all extremities. ABDOMEN: Soft, non tender and non distended. No rebound or guarding, and no masses palpated. Bowel Sounds normal. MUSCULOSKELETAL: Good range of motion of all major joints. Extremities without clubbing, cyanosis or edema. NEUROLOGIC EXAM: Alert and oriented x 3 No focal sensory or strength deficits. Speech normal. Follows commands. PSYCHIATRIC: Mood normal. SKIN: detail exam as documented in skin assessment - Constitutional Vitals: Temp Pulse Resp BP Pulse Ox 98.0 F 98 H 10 L 126/72 100 12/23/18 08:00 12/23/18 09:00 12/23/18 09:00 12/23/18 09:00 12/23/18 09:00 General appearance: Present: mild distress, cachectic Results - Labs CBC & Chem 7: 12/23/18 03:58 12/23/18 14:12 Labs: Laboratory Last Values WBC 4.8 K/mm3 (4.5-11.0) 12/23/18 03:58 RBC 3.76 M/mm3 (3.65-5.03) 12/23/18 03:58 Hgb 12.9 gm/dl (11.8-15.2) 12/23/18 03:58 Hct 36.8 % (35.5-45.6) D 12/23/18 03:58 MCV 98 fl (84-94) H 12/23/18 03:58 MCH 34 pg (28-32) H 12/23/18 03:58 MCHC 35 % (32-34) H 12/23/18 03:58 RDW 15.2 % (13.2-15.2) 12/23/18 03:58 Plt Count 167 K/mm3 (140-440) 12/23/18 03:58 Lymph % (Auto) 11.4 % (13.4-35.0) L 12/21/18 17:11 [place] % (Auto) 4.7 % (0.0-7.3) 12/21/18 17:11 Eos % (Auto) 0.0 % (0.0-4.3) 12/21/18 17:11 Baso % (Auto) 0.9 % (0.0-1.8) 12/21/18 17:11 Lymph # 0.8 K/mm3 (1.2-5.4) L 12/21/18 17:11 [place] # 0.3 K/mm3 (0.0-0.8) 12/21/18 17:11 Eos # 0.0 K/mm3 (0.0-0.4) 12/21/18 17:11 Baso # 0.1 K/mm3 (0.0-0.1) 12/21/18 17:11 Seg Neutrophils % 83.0 % (40.0-70.0) H 12/21/18 17:11 Seg Neutrophils # 5.7 K/mm3 (1.8-7.7) 12/21/18 17:11 VBG pH 7.018 (7.320-7.420) L* 12/21/18 17:11 Sodium 142 mmol/L (137-145) D 12/23/18 03:58 Potassium 3.0 mmol/L (3.6-5.0) L 12/23/18 03:58 Chloride 108.2 mmol/L (98-107) H 12/23/18 03:58 Carbon Dioxide 18 mmol/L (22-30) L 12/23/18 03:58 19 mmol/L 12/23/18 03:58 BUN 15 mg/dL (9-20) 12/23/18 03:58 1.2 mg/dL (0.8-1.5) 12/23/18 03:58 Estimated GFR > 60 ml/min 12/23/18 03:58 13 % 12/23/18 03:58 Glucose 314 mg/dL (75-100) H 12/23/18 03:58 POC Glucose 334 (70-105) H 12/23/18 07:29 Lactic Acid 1.90 mmol/L (0.7-2.0) 12/22/18 00:26 Calcium 9.8 mg/dL (8.4-10.2) 12/23/18 03:58 Phosphorus 5.90 mg/dL (2.5-4.5) H 12/21/18 18:53 Magnesium 2.00 mg/dL (1.7-2.3) 12/21/18 18:53 0.50 mg/dL (0.1-1.2) 12/21/18 17:11 AST 10 units/L (5-40) 12/21/18 17:11 ALT 16 units/L (7-56) 12/21/18 17:11 119 units/L (35-129) 12/21/18 17:11 32 units/L (55-170) L 12/21/18 17:11 CK-MB (CK-2) 2.6 ng/mL (0.0-4.0) 12/21/18 17:11 CK-MB (CK-2) Rel Index 8.1 (0-4) H 12/21/18 17:11 < 0.010 ng/mL (0.00-0.029) 12/21/18 17:11 8.7 g/dL (6.3-8.2) H 12/21/18 17:11 4.8 g/dL (3.9-5) 12/21/18 17:11 1.2 % 12/21/18 17:11 Yellow (Yellow) 12/21/18 Unknown Clear (Clear) 12/21/18 Unknown 5.0 (5.0-7.0) 12/21/18 Unknown Ur Specific [place] 1.018 (1.003-1.030) 12/21/18 Unknown 100 mg/dl mg/dL (Negative) 12/21/18 Unknown >=500 mg/dL (Negative) 12/21/18 Unknown 80 mg/dL (Negative) 12/21/18 Unknown Mod (Negative) 12/21/18 Unknown Neg (Negative) 12/21/18 Unknown Neg (Negative) 12/21/18 Unknown < 2.0 mg/dL (<2.0) 12/21/18 Unknown Ur Leukocyte Esterase Neg (Negative) 12/21/18 Unknown 1.0 /HPF (0.0-6.0) 12/21/18 Unknown < 1.0 /HPF (0.0-6.0) 12/21/18 Unknown U Epithel Cells (Auto) < 1.0 /HPF (0-13.0) 12/21/18 Unknown 1+ /HPF (Negative) 12/21/18 Unknown Hyaline Casts 4 /LPF 12/21/18 Unknown Few /HPF 12/21/18 Unknown Presumptive negative 12/21/18 Unknown Presumptive negative 12/21/18 Unknown Ur Barbiturates Screen Presumptive negative 12/21/18 Unknown Ur Phencyclidine Scrn Presumptive negative 12/21/18 Unknown Ur Amphetamines Screen Presumptive negative 12/21/18 Unknown U Benzodiazepines Scrn Presumptive negative 12/21/18 Unknown Presumptive negative 12/21/18 Unknown U Marijuana (THC) Screen Presumptive negative 12/21/18 Unknown Disclamer 12/21/18 Unknown Plasma/Serum Alcohol < 0.01 % (0-0.07) 12/21/18 17:11 Active Medications - Current Medications Current Medications: Generic Name Dose Route Start Last Admin Trade Name Freq PRN Reason Stop Dose Admin Dextrose 0 ml 12/21/18 18:44 D50w (25gm) Syringe IV PRN PRN Hypoglycemia Folic Acid 1 mg 12/22/18 10:00 12/23/18 09:00 Folvite PO 1 mg QDAY JOSELINE Administration Heparin Sodium (Porcine) 5,000 unit 12/21/18 22:00 12/23/18 09:01 Heparin SUB-Q 5,000 unit Q12HR JOSELINE Administration Dextrose/Sodium Chloride 1,000 mls @ 125 mls/hr 12/22/18 08:00 12/23/18 01:25 D5/0.45ns IV 125 mls/hr DIRECT JOSELINE Administration Insulin Human Isoph/Insulin Regular 16 unit 12/23/18 08:00 12/23/18 08:56 Humulin 70/30 SUB-Q 16 unit BIDDIAB JOSELINE Administration Insulin Human Lispro 0 unit 12/22/18 16:30 12/23/18 08:30 Humalog SUB-Q 6 unit ACHS JOSELINE Administration Protocol Lisinopril 2.5 mg 12/23/18 10:00 12/23/18 09:00 Zestril PO 2.5 mg QDAY JOSELINE Administration Lorazepam 2 mg 12/21/18 20:31 Ativan IV Q1HR PRN CIWA-Ar 8-15 Multivitamins 1 each 12/22/18 10:00 12/23/18 09:00 Theragran Tab PO 1 each QDAY JOSELINE Administration Sodium Chloride 10 ml 12/21/18 22:00 12/23/18 09:02 Sodium Chloride Flush Syringe 10 Ml IV 10 ml BID JOSELINE Administration Sodium Chloride 10 ml 12/21/18 19:17 Sodium Chloride Flush Syringe 10 Ml IV PRN PRN LINE FLUSH Thiamine HCl 100 mg 12/22/18 10:00 12/23/18 09:00 Vitamin B-1 PO 100 mg QDAY JOSELINE Administration
--- NOTE | 2018-12-23 10:32 | Progress Note ---
Assessment and Plan Diabetic ketoacidosis Acute renal failure Alcohol use disorder Hypernatremia Nausea and vomiting - Treatment per DKA protocol - Serial BMPs - IVF and insulin infusion,m once AG is closed transition to basal bolus insulin - Monitor renal indices, avoid nephrotoxins and adjust all medications for CrCL and GFR - VTE prophylaxis, on heparin - Alcohol withdrawal precatuions, CIWA protocol - Electrolyte management/replacement protocols - Alcohol use counselling once he has improved - Continue ICU care, until he is off insulin infusion. All other care per primary service. Subjective Date of service: 12/23/18 Interval history: Patient is seen today for: Diabetic ketoacidosis; Acute renal failure; Alcohol use disorder; Hypernatremia; Nausea and vomiting Seen and examined at bedside; 24hour events reviewed; nursing and respiratory care staff consulted; no adverse overnight events reported to me; resting peacefully in bed; no N/V/F/C; thirsty Objective Vital Signs - 12hr 12/22/18 12/22/18 12/23/18 23:00 23:11 00:00 Temperature 99.4 F Pulse Rate 89 88 Respiratory Rate Blood Pressure 149/92 126/73 O2 Sat by Pulse 98 96 Oximetry 12/23/18 12/23/18 12/23/18 00:10 01:00 02:00 Temperature Pulse Rate 88 94 H Respiratory 20 Rate Blood Pressure 152/87 157/95 O2 Sat by Pulse 98 97 Oximetry 12/23/18 12/23/18 12/23/18 03:00 03:32 04:00 Temperature 98.9 F Pulse Rate 86 98 H Respiratory Rate Blood Pressure 149/91 155/86 O2 Sat by Pulse 98 98 Oximetry 12/23/18 12/23/18 12/23/18 04:15 05:00 06:00 Temperature Pulse Rate 90 85 Respiratory 18 Rate Blood Pressure 153/94 153/94 O2 Sat by Pulse 99 97 Oximetry 12/23/18 12/23/18 12/23/18 07:00 08:00 09:00 Temperature 97.3 F L Pulse Rate 88 90 98 H Respiratory 10 L Rate Blood Pressure 121/81 121/81 126/72 O2 Sat by Pulse 100 Oximetry Constitutional: no acute distress CBC and BMP: 12/23/18 03:58 12/24/18 10:47 Abnormal lab findings: Abnormal Labs 07/25/19 07/25/19 07/25/19 17:05 17:11 17:11 MCV 104 H MCH 35 H MCHC RDW 15.4 H Lymph % (Auto) 11.4 L Lymph # 0.8 L Seg Neutrophils % 83.0 H VBG pH Sodium Potassium Chloride Carbon Dioxide BUN Creatinine Glucose POC Glucose > 500 H Lactic Acid Calcium Phosphorus Total Creatine Kinase 32 L CK-MB (CK-2) Rel Index 8.1 H Total Protein 12/21/18 12/21/18 12/21/18 17:11 17:11 17:11 MCV MCH MCHC RDW Lymph % (Auto) Lymph # Seg Neutrophils % VBG pH 7.018 L* Sodium Potassium 5.7 H Chloride 94.7 L Carbon Dioxide 3 L* BUN 33 H Creatinine 2.4 H Glucose 770 H* POC Glucose Lactic Acid 3.60 H* Calcium 10.5 H Phosphorus Total Creatine Kinase CK-MB (CK-2) Rel Index Total Protein 8.7 H 12/21/18 12/21/18 12/21/18 17:55 18:53 18:53 MCV MCH MCHC RDW Lymph % (Auto) Lymph # Seg Neutrophils % VBG pH Sodium Potassium Chloride Carbon Dioxide BUN Creatinine Glucose POC Glucose Lactic Acid 3.80 H* 2.50 H* Calcium Phosphorus 5.90 H Total Creatine Kinase CK-MB (CK-2) Rel Index Total Protein 12/21/18 12/21/18 12/21/18 18:53 19:18 19:58 MCV MCH MCHC RDW Lymph % (Auto) Lymph # Seg Neutrophils % VBG pH Sodium Potassium Chloride Carbon Dioxide 4 L* BUN 32 H Creatinine 2.1 H Glucose 696 H* POC Glucose > 500 H Lactic Acid 2.10 H* Calcium Phosphorus Total Creatine Kinase CK-MB (CK-2) Rel Index Total Protein 12/21/18 12/21/18 12/21/18 21:50 22:43 22:43 MCV MCH MCHC RDW Lymph % (Auto) Lymph # Seg Neutrophils % VBG pH Sodium Potassium Chloride Carbon Dioxide 6 L* BUN 31 H Creatinine 2.0 H Glucose 536 H* POC Glucose 466 H Lactic Acid 2.20 H* Calcium Phosphorus Total Creatine Kinase CK-MB (CK-2) Rel Index Total Protein 12/21/18 12/21/18 12/21/18 23:20 23:53 Unknown MCV MCH MCHC RDW Lymph % (Auto) Lymph # Seg Neutrophils % VBG pH Sodium Potassium Chloride Carbon Dioxide 4 L* BUN 31 H Creatinine 2.1 H Glucose 670 H* POC Glucose 442 H 384 H Lactic Acid Calcium Phosphorus Total Creatine Kinase CK-MB (CK-2) Rel Index Total Protein 12/22/18 12/22/18 12/22/18 00:26 01:12 02:11 MCV [facility] MCHC RDW Lymph % (Auto) Lymph # Seg Neutrophils % VBG pH Sodium Potassium Chloride 109.2 H Carbon Dioxide 7 L* BUN 30 H Creatinine 1.8 H Glucose 441 H POC Glucose 345 H 342 H Lactic Acid Calcium Phosphorus Total Creatine Kinase CK-MB (CK-2) Rel Index Total Protein 12/22/18 12/22/18 12/22/18 03:06 04:09 04:49 MCV [facility] MCHC RDW Lymph % (Auto) Lymph # Seg Neutrophils % VBG pH Sodium 149 H Potassium Chloride 115.8 H Carbon Dioxide 12 L BUN 29 H Creatinine 1.8 H Glucose 298 H POC Glucose 314 H 308 H Lactic Acid Calcium Phosphorus Total Creatine Kinase CK-MB (CK-2) Rel Index Total Protein 12/22/18 12/22/18 12/22/18 05:10 05:47 08:00 MCV [facility] MCHC RDW Lymph % (Auto) Lymph # Seg Neutrophils % VBG pH Sodium Potassium Chloride Carbon Dioxide BUN Creatinine Glucose POC Glucose 277 H 252 H 191 H Lactic Acid Calcium Phosphorus Total Creatine Kinase CK-MB (CK-2) Rel Index Total Protein 12/22/18 12/22/18 12/22/18 09:20 10:06 11:22 MCV [facility] MCHC RDW Lymph % (Auto) Lymph # Seg Neutrophils % VBG pH Sodium 151 H Potassium 3.5 L Chloride 119.4 H Carbon Dioxide 16 L BUN 26 H Creatinine 1.6 H Glucose 182 H POC Glucose 204 H 185 H Lactic Acid Calcium Phosphorus Total Creatine Kinase CK-MB (CK-2) Rel Index Total Protein 12/22/18 12/22/18 12/22/18 11:36 12:29 15:05 MCV [facility] MCHC RDW Lymph % (Auto) Lymph # Seg Neutrophils % VBG pH Sodium Potassium Chloride Carbon Dioxide BUN Creatinine Glucose POC Glucose 173 H 170 H 175 H Lactic Acid Calcium Phosphorus Total Creatine Kinase CK-MB (CK-2) Rel Index Total Protein 07/12/22/18 12/23/18 16:57 21:39 03:58 MCV 98 H MCH 34 H MCHC 35 H RDW Lymph % (Auto) Lymph # Seg Neutrophils % VBG pH Sodium Potassium Chloride Carbon Dioxide BUN Creatinine Glucose POC Glucose 173 H 265 H Lactic Acid Calcium Phosphorus Total Creatine Kinase CK-MB (CK-2) Rel Index Total Protein 12/23/18 12/23/18 03:58 07:29 MCV MCH MCHC RDW Lymph % (Auto) Lymph # Seg Neutrophils % VBG pH Sodium Potassium 3.0 L Chloride 108.2 H Carbon Dioxide 18 L BUN Creatinine Glucose 314 H POC Glucose 334 H Lactic Acid Calcium Phosphorus Total Creatine Kinase CK-MB (CK-2) Rel Index Total Protein
[2018-12-23] MEDS ORDERED: TYLENOL PO PRN (11:44)
[2018-12-23] MEDS ORDERED: ZOFRAN IV PRN (12:38)
[2018-12-23] MEDS ORDERED: K-DUR PO ONE ×2 (14:00→18:00)
[2018-12-23 14:53] LABS: BUN/Creatinine Ratio 11; Blood Urea Nitrogen 11 mg/dL (9-20); Hemolysis Index 1
[2018-12-23] MEDS: K-DUR PO ONE ×2 (17:35→18:18)
[2018-12-24] MEDS: HumaLOG SUB-Q SCH ×4 (08:55→21:45)
[2018-12-24] MEDS: HEPARIN SUB-Q SCH ×2 (10:17→21:43)
[2018-12-24] MEDS: ZESTRIL PO SCH (10:18)
[2018-12-24] MEDS: FOLVITE PO SCH (10:18)
[2018-12-24] MEDS: VITAMIN B-1 PO SCH (10:18)
[2018-12-24] MEDS: SODIUM CHLORIDE FLUSH SYRINGE 10 ML IV SCH ×2 (10:19→21:43)
[2018-12-24] MEDS: THERAGRAN Tab PO SCH (10:19)
--- NOTE | 2018-12-24 10:23 | Progress Note ---
Assessment and Plan Assessment and plan: 58 YO Male with DM, HTN presents to ED for evaluation. Pt states that he ran out of all his medications approximately 1 week ago. Pt reports nausea and multiple episodes of vomiting over the past 2 days with worsening symptoms over the same time frame. Pt acknowledges polyuria, polydipsia, polyphagia. Pt acknowledges ETOH intake today. EMS notified, and upon arrival the patient was found to be in distress and transported to [facility]. Pt seen and evaluated in ED and found to have DKA complicated by Acute Kidney Injury, and Metabolic Acidosis. Pt initiated on DKA protocol and admitted to ICU. Pt treated with IVF resuscitation therapy with improvement in symptoms. Pt denies fever, chills, CP, Palpitations, Trauma, BRBPR, Skin rash, ingestion of food/water from new/different sources. No prior admission for review. All listed medication reconciled at time of exam. Diabetic ketoacidosis- resolved DM type 2 with Hyperglycemia Hypokalemia Acute Kidney Injury secondary to vasomotor Nephropathy Alcohol use disorder Acute Metabolic Acidosis secondary to DKA Hypernatremia Hypokalemia Gastroenteritis Wit associated Nausea vomiting Plan Now off DKA protocol Replace electrolytes Extensive counselling for 15 mins on compliance with insulin and risk of non compliance, patient verbalized understanding advance diet increase insulin ETOH Withdrawal Protocol d/w Nursing staff DVT/GI prophy History Interval history: Patient seen and examined, tolerating diet, no new complaints but still lethergic Hospitalist Physical - Physical exam Narrative exam: VITAL SIGNS: Reviewed. GENERAL: The patient appears normally Vital signs as documented. HEAD: No signs of head trauma. EYES: Pupils are equal. Extraocular motions intact. EARS: Hearing grossly intact. MOUTH: Oropharynx is normal. NECK: No adenopathy, no JVD. CHEST: Chest with clear breath sounds bilaterally. No wheezes, rales, or rhonchi. CARDIAC: Regular rate and rhythm. S1 and S2, without murmurs, gallops, or rub s. VASCULAR: No Edema. Peripheral pulses normal and equal in all extremities. ABDOMEN: Soft, non tender and non distended. No rebound or guarding, and no masses palpated. Bowel Sounds normal. MUSCULOSKELETAL: Good range of motion of all major joints. Extremities without clubbing, cyanosis or edema. NEUROLOGIC EXAM: Alert and oriented x 3 No focal sensory or strength deficits. Speech normal. Follows commands. PSYCHIATRIC: Mood normal. SKIN: detail exam as documented in skin assessment - Constitutional Vitals: Temp Pulse Resp BP Pulse Ox 98.3 F 79 20 145/93 99 12/24/18 05:51 12/24/18 10:18 12/24/18 05:51 12/24/18 10:18 12/24/18 05:51 General appearance: Present: mild distress, cachectic Results - Labs CBC & Chem 7: 12/23/18 03:58 12/24/18 10:47 Labs: Laboratory Last Values WBC 4.8 K/mm3 (4.5-11.0) 12/23/18 03:58 RBC 3.76 M/mm3 (3.65-5.03) 12/23/18 03:58 Hgb 12.9 gm/dl (11.8-15.2) 12/23/18 03:58 Hct 36.8 % (35.5-45.6) D 12/23/18 03:58 MCV 98 fl (84-94) H 12/23/18 03:58 MCH 34 pg (28-32) H 12/23/18 03:58 MCHC 35 % (32-34) H 12/23/18 03:58 RDW 15.2 % (13.2-15.2) 12/23/18 03:58 Plt Count 167 K/mm3 (140-440) 12/23/18 03:58 Lymph % (Auto) 11.4 % (13.4-35.0) L 12/21/18 17:11 [place] % (Auto) 4.7 % (0.0-7.3) 12/21/18 17:11 Eos % (Auto) 0.0 % (0.0-4.3) 12/21/18 17:11 Baso % (Auto) 0.9 % (0.0-1.8) 12/21/18 17:11 Lymph # 0.8 K/mm3 (1.2-5.4) L 12/21/18 17:11 [place] # 0.3 K/mm3 (0.0-0.8) 12/21/18 17:11 Eos # 0.0 K/mm3 (0.0-0.4) 12/21/18 17:11 Baso # 0.1 K/mm3 (0.0-0.1) 12/21/18 17:11 Seg Neutrophils % 83.0 % (40.0-70.0) H 12/21/18 17:11 Seg Neutrophils # 5.7 K/mm3 (1.8-7.7) 12/21/18 17:11 VBG pH 7.018 (7.320-7.420) L* 12/21/18 17:11 Sodium 144 mmol/L (137-145) 12/23/18 14:12 Potassium 2.5 mmol/L (3.6-5.0) L* 12/23/18 14:12 Chloride 110.1 mmol/L (98-107) H 12/23/18 14:12 Carbon Dioxide 20 mmol/L (22-30) L 12/23/18 14:12 16 mmol/L 12/23/18 14:12 BUN 11 mg/dL (9-20) 12/23/18 14:12 1.0 mg/dL (0.8-1.5) 12/23/18 14:12 Estimated GFR > 60 ml/min 12/23/18 14:12 11 % 12/23/18 14:12 Glucose 201 mg/dL (75-100) H 12/23/18 14:12 POC Glucose 265 (70-105) H 12/24/18 08:09 Lactic Acid 1.90 mmol/L (0.7-2.0) 12/22/18 00:26 Calcium 9.0 mg/dL (8.4-10.2) 12/23/18 14:12 Phosphorus 5.90 mg/dL (2.5-4.5) H 12/21/18 18:53 Magnesium 2.00 mg/dL (1.7-2.3) 12/21/18 18:53 0.50 mg/dL (0.1-1.2) 12/21/18 17:11 AST 10 units/L (5-40) 12/21/18 17:11 ALT 16 units/L (7-56) 12/21/18 17:11 119 units/L (35-129) 12/21/18 17:11 32 units/L (55-170) L 12/21/18 17:11 CK-MB (CK-2) 2.6 ng/mL (0.0-4.0) 12/21/18 17:11 CK-MB (CK-2) Rel Index 8.1 (0-4) H 12/21/18 17:11 < 0.010 ng/mL (0.00-0.029) 12/21/18 17:11 8.7 g/dL (6.3-8.2) H 12/21/18 17:11 4.8 g/dL (3.9-5) 12/21/18 17:11 1.2 % 12/21/18 17:11 Yellow (Yellow) 12/21/18 Unknown Clear (Clear) 12/21/18 Unknown 5.0 (5.0-7.0) 12/21/18 Unknown Ur Specific [place] 1.018 (1.003-1.030) 12/21/18 Unknown 100 mg/dl mg/dL (Negative) 12/21/18 Unknown >=500 mg/dL (Negative) 12/21/18 Unknown 80 mg/dL (Negative) 12/21/18 Unknown Mod (Negative) 12/21/18 Unknown Neg (Negative) 12/21/18 Unknown Neg (Negative) 12/21/18 Unknown < 2.0 mg/dL (<2.0) 12/21/18 Unknown Ur Leukocyte Esterase Neg (Negative) 12/21/18 Unknown 1.0 /HPF (0.0-6.0) 12/21/18 Unknown < 1.0 /HPF (0.0-6.0) 12/21/18 Unknown U Epithel Cells (Auto) < 1.0 /HPF (0-13.0) 12/21/18 Unknown 1+ /HPF (Negative) 12/21/18 Unknown Hyaline Casts 4 /LPF 12/21/18 Unknown Few /HPF 12/21/18 Unknown Presumptive negative 12/21/18 Unknown Presumptive negative 12/21/18 Unknown Ur Barbiturates Screen Presumptive negative 12/21/18 Unknown Ur Phencyclidine Scrn Presumptive negative 12/21/18 Unknown Ur Amphetamines Screen Presumptive negative 12/21/18 Unknown U Benzodiazepines Scrn Presumptive negative 12/21/18 Unknown Presumptive negative 12/21/18 Unknown U Marijuana (THC) Screen Presumptive negative 12/21/18 Unknown Disclamer 12/21/18 Unknown Plasma/Serum Alcohol < 0.01 % (0-0.07) 07/25/19 17:11 Active Medications - Current Medications Current Medications: Generic Name Dose Route Start Last Admin Trade Name [place] PRN Reason Stop Dose Admin Acetaminophen 650 mg 12/23/18 11:44 12/23/18 12:24 Tylenol PO 650 mg Q6H PRN Administration Pain, Mild (1-3) Dextrose 0 ml 12/21/18 18:44 D50w (25gm) Syringe IV PRN PRN Hypoglycemia Folic Acid 1 mg 12/22/18 10:00 12/24/18 10:18 Folvite PO 1 mg QDAY JOSELINE Administration Heparin Sodium (Porcine) 5,000 unit 12/21/18 22:00 12/24/18 10:17 Heparin SUB-Q 5,000 unit Q12HR JOSELINE Administration Insulin Human Isoph/Insulin Regular 16 unit 12/23/18 08:00 12/24/18 08:56 Humulin 70/30 SUB-Q 16 unit BIDDIAB JOSELINE Administration Insulin Human Lispro 0 unit 12/22/18 16:30 12/24/18 08:55 Humalog SUB-Q 4 unit ACHS JOSELINE Administration Protocol Lisinopril 2.5 mg 12/23/18 10:00 12/24/18 10:18 Zestril PO 2.5 mg QDAY JOSELINE Administration Lorazepam 2 mg 12/21/18 20:31 Ativan IV Q1HR PRN BONITAWA-Donell 8-15 Multivitamins 1 each 12/22/18 10:00 12/24/18 10:19 Theragran Tab PO 1 each QDAY JOSELINE Administration Ondansetron HCl 4 mg 12/23/18 12:38 12/23/18 17:26 Zofran IV 4 mg Q6H PRN Administration Nausea And Vomiting Sodium Chloride 10 ml 12/21/18 22:00 12/24/18 10:19 Sodium Chloride Flush Syringe 10 Ml IV 10 ml BID JOSELINE Administration Sodium Chloride 10 ml 12/21/18 19:17 Sodium Chloride Flush Syringe 10 Ml IV PRN PRN LINE FLUSH Thiamine HCl 100 mg 12/22/18 10:00 12/24/18 10:18 Vitamin B-1 PO 100 mg QDAY JOSELINE Administration
[2018-12-24 11:33] LABS: BUN/Creatinine Ratio 8; Blood Urea Nitrogen 8 mg/dL (9-20); Hemolysis Index 15
[2018-12-24] MEDS ORDERED: K-DUR PO ONE (11:54)
[2018-12-24] MEDS: KCL 10MEQ/100ML 10 MEQ/100 ML BAG IV SCH ×4 (12:55→17:10)
[2018-12-24] MEDS ORDERED: MAGNESIUM SULFATE 1 GM in NACL 0.9% 50 ML IV ONE (13:00)
[2018-12-25] MEDS: HumaLOG SUB-Q SCH ×4 (08:16→22:35)
[2018-12-25] MEDS: VITAMIN B-1 PO SCH (09:36)
[2018-12-25] MEDS: FOLVITE PO SCH (09:36)
[2018-12-25] MEDS: HEPARIN SUB-Q SCH ×2 (09:36→22:34)
[2018-12-25] MEDS: ZESTRIL PO SCH (09:36)
[2018-12-25] MEDS: SODIUM CHLORIDE FLUSH SYRINGE 10 ML IV SCH ×2 (09:37→22:36)
[2018-12-25] MEDS: THERAGRAN Tab PO SCH (09:37)
[2018-12-25 10:24] LABS: BUN/Creatinine Ratio 9; Blood Urea Nitrogen 8 mg/dL (9-20); Calcium 9.3 mg/dL (8.4-10.2); Hemolysis Index 4
[2018-12-25] MEDS ORDERED: POTASSIUM CHLORIDE FEEDTUBE ONE (11:30)
[2018-12-25] MEDS: KCL 10MEQ/100ML 10 MEQ/100 ML BAG IV SCH ×4 (11:40→18:28)
--- NOTE | 2018-12-25 16:29 | Progress Note ---
Assessment and Plan Assessment and plan: 58 YO Male with DM, HTN presents to ED for evaluation. Pt states that he ran out of all his medications approximately 1 week ago. Pt reports nausea and multiple episodes of vomiting over the past 2 days with worsening symptoms over the same time frame. Pt acknowledges polyuria, polydipsia, polyphagia. Pt acknowledges ETOH intake today. EMS notified, and upon arrival the patient was found to be in distress and transported to [facility]. Pt seen and evaluated in ED and found to have DKA complicated by Acute Kidney Injury, and Metabolic Acidosis. Pt initiated on DKA protocol and admitted to ICU. Pt treated with IVF resuscitation therapy with improvement in symptoms. Pt denies fever, chills, CP, Palpitations, Trauma, BRBPR, Skin rash, ingestion of food/water from new/different sources. No prior admission for review. All listed medication reconciled at time of exam. Diabetic ketoacidosis- resolved DM type 2 with Hyperglycemia Hypokalemia- persistent Acute Kidney Injury secondary to vasomotor Nephropathy Alcohol use disorder Acute Metabolic Acidosis secondary to DKA Hypernatremia Hypokalemia Gastroenteritis Wit associated Nausea vomiting Gait abnormality Plan Now off DKA protocol Replace electrolytes- Potassium. Magnesium level is appropriate Extensive counselling for 15 mins on compliance with insulin and risk of non compliance, patient verbalized understanding advance diet Fall precaution increase insulin Will need prescription on discharge ETOH Withdrawal Protocol d/w Nursing staff DVT/GI prophy Anticipate discharge in am once stable K History Interval history: Admitted with DKA secondary to non compliance Patient seen and examined, tolerating diet, no new complaints, ambulated with PT today. Has some gait dysfunction but does well with His walker. He also has a walker at home Hospitalist Physical - Physical exam Narrative exam: VITAL SIGNS: Reviewed. GENERAL: The patient appears normally Vital signs as documented. HEAD: No signs of head trauma. EYES: Pupils are equal. Extraocular motions intact. EARS: Hearing grossly intact. MOUTH: Oropharynx is normal. NECK: No adenopathy, no JVD. CHEST: Chest with clear breath sounds bilaterally. No wheezes, rales, or rhonchi. CARDIAC: Regular rate and rhythm. S1 and S2, without murmurs, gallops, or rubs. VASCULAR: No Edema. Peripheral pulses normal and equal in all extremities. ABDOMEN: Soft, non tender and non distended. No rebound or guarding, and no masses palpated. Bowel Sounds normal. MUSCULOSKELETAL: Good range of motion of all major joints. Extremities without clubbing, cyanosis or edema. NEUROLOGIC EXAM: Alert and oriented x 3 No focal sensory or strength deficits. Speech normal. Follows commands. PSYCHIATRIC: Mood normal. SKIN: detail exam as documented in skin assessment - Constitutional Vitals: Temp Pulse Resp BP Pulse Ox 98.6 F 85 20 118/81 99 12/25/18 11:46 12/25/18 11:46 12/25/18 11:46 12/25/18 11:46 12/25/18 11:46 General appearance: Present: mild distress, cachectic Results - Labs CBC & Chem 7: 12/23/18 03:58 12/25/18 09:50 Labs: Laboratory Last Values WBC 4.8 K/mm3 (4.5-11.0) 12/23/18 03:58 RBC 3.76 M/mm3 (3.65-5.03) 12/23/18 03:58 Hgb 12.9 gm/dl (11.8-15.2) 12/23/18 03:58 Hct 36.8 % (35.5-45.6) D 12/23/18 03:58 MCV 98 fl (84-94) H 12/23/18 03:58 MCH 34 pg (28-32) H 12/23/18 03:58 MCHC 35 % (32-34) H 12/23/18 03:58 RDW 15.2 % (13.2-15.2) 12/23/18 03:58 Plt Count 167 K/mm3 (140-440) 12/23/18 03:58 Lymph % (Auto) 11.4 % (13.4-35.0) L 12/21/18 17:11 [place] % (Auto) 4.7 % (0.0-7.3) 12/21/18 17:11 Eos % (Auto) 0.0 % (0.0-4.3) 12/21/18 17:11 Baso % (Auto) 0.9 % (0.0-1.8) 12/21/18 17:11 Lymph # 0.8 K/mm3 (1.2-5.4) L 12/21/18 17:11 [place] # 0.3 K/mm3 (0.0-0.8) 12/21/18 17:11 Eos # 0.0 K/mm3 (0.0-0.4) 12/21/18 17:11 Baso # 0.1 K/mm3 (0.0-0.1) 12/21/18 17:11 Seg Neutrophils % 83.0 % (40.0-70.0) H 12/21/18 17:11 Seg Neutrophils # 5.7 K/mm3 (1.8-7.7) 12/21/18 17:11 VBG pH 7.018 (7.320-7.420) L* 12/21/18 17:11 Sodium 138 mmol/L (137-145) 12/25/18 09:50 Potassium 2.9 mmol/L (3.6-5.0) L* 12/25/18 09:50 Chloride 103.5 mmol/L (98-107) 12/25/18 09:50 Carbon Dioxide 23 mmol/L (22-30) 12/25/18 09:50 14 mmol/L 12/25/18 09:50 BUN 8 mg/dL (9-20) L 12/25/18 09:50 0.9 mg/dL (0.8-1.5) 12/25/18 09:50 Estimated GFR > 60 ml/min 12/25/18 09:50 9 % 12/25/18 09:50 Glucose 217 mg/dL (75-100) H 12/25/18 09:50 POC Glucose 218 (70-105) H 12/25/18 11:52 Lactic Acid 1.90 mmol/L (0.7-2.0) 12/22/18 00:26 Calcium 9.3 mg/dL (8.4-10.2) 12/25/18 09:50 Phosphorus 5.90 mg/dL (2.5-4.5) H 12/21/18 18:53 Magnesium 2.00 mg/dL (1.7-2.3) 12/21/18 18:53 0.50 mg/dL (0.1-1.2) 12/21/18 17:11 AST 10 units/L (5-40) 12/21/18 17:11 ALT 16 units/L (7-56) 12/21/18 17:11 119 units/L (35-129) 12/21/18 17:11 32 units/L (55-170) L 12/21/18 17:11 CK-MB (CK-2) 2.6 ng/mL (0.0-4.0) 12/21/18 17:11 CK-MB (CK-2) Rel Index 8.1 (0-4) H 12/21/18 17:11 < 0.010 ng/mL (0.00-0.029) 12/21/18 17:11 8.7 g/dL (6.3-8.2) H 12/21/18 17:11 4.8 g/dL (3.9-5) 12/21/18 17:11 1.2 % 12/21/18 17:11 Yellow (Yellow) 12/21/18 Unknown Clear (Clear) 12/21/18 Unknown 5.0 (5.0-7.0) 12/21/18 Unknown Ur Specific [place]ver 1.018 (1.003-1.030) 12/21/18 Unknown 100 mg/dl mg/dL (Negative) 12/21/18 Unknown >=500 mg/dL (Negative) 12/21/18 Unknown 80 mg/dL (Negative) 12/21/18 Unknown Mod (Negative) 12/21/18 Unknown Neg (Negative) 12/21/18 Unknown Neg (Negative) 12/21/18 Unknown < 2.0 mg/dL (<2.0) 12/21/18 Unknown Ur Leukocyte Esterase Neg (Negative) 12/21/18 Unknown 1.0 /HPF (0.0-6.0) 12/21/18 Unknown < 1.0 /HPF (0.0-6.0) 12/21/18 Unknown U Epithel Cells (Auto) < 1.0 /HPF (0-13.0) 12/21/18 Unknown 1+ /HPF (Negative) 12/21/18 Unknown Hyaline Casts 4 /LPF 12/21/18 Unknown Few /HPF 12/21/18 Unknown Presumptive negative 12/21/18 Unknown Presumptive negative 12/21/18 Unknown Ur Barbiturates Screen Presumptive negative 12/21/18 Unknown Ur Phencyclidine Scrn Presumptive negative 12/21/18 Unknown Ur Amphetamines Screen Presumptive negative 12/21/18 Unknown U Benzodiazepines Scrn Presumptive negative 12/21/18 Unknown Presumptive negative 12/21/18 Unknown U Marijuana (THC) Screen Presumptive negative 12/21/18 Unknown Disclamer 12/21/18 Unknown Plasma/Serum Alcohol < 0.01 % (0-0.07) 12/21/18 17:11 Active Medications - Current Medications Current Medications: Generic Name Dose Route Start Last Admin Trade Name Freq PRN Reason Stop Dose Admin Acetaminophen 650 mg 12/23/18 11:44 12/23/18 12:24 Tylenol PO 650 mg Q6H PRN Administration Pain, Mild (1-3) Dextrose 0 ml 12/21/18 18:44 D50w (25gm) Syringe IV PRN PRN Hypoglycemia Folic Acid 1 mg 12/22/18 10:00 12/25/18 09:36 Folvite PO 1 mg QDAY JOSELINE Administration Heparin Sodium (Porcine) 5,000 unit 12/21/18 22:00 12/25/18 09:36 Heparin SUB-Q 5,000 unit Q12HR JOSELINE Administration Insulin Human Isoph/Insulin Regular 25 unit 12/25/18 16:22 Humulin 70/30 SUB-Q BIDDIAB JOSELINE Insulin Human Lispro 0 unit 12/22/18 16:30 12/25/18 12:49 Humalog SUB-Q 4 unit ACHS JOSELINE Administration Protocol Lisinopril 2.5 mg 12/23/18 10:00 12/25/18 09:36 Zestril PO 2.5 mg QDAY JOSELINE Administration Lorazepam 2 mg 12/21/18 20:31 Ativan IV Q1HR PRN CIWA-Ar 8-15 Multivitamins 1 each 12/22/18 10:00 12/25/18 09:37 Theragran Tab PO 1 each QDAY JOSELINE Administration Ondansetron HCl 4 mg 12/23/18 12:38 12/23/18 17:26 Zofran IV 4 mg Q6H PRN Administration Nausea And Vomiting Potassium Chloride 40 meq 12/25/18 18:00 K-Dur PO 12/25/18 18:01 ONCE ONE Potassium Chloride 40 meq 12/25/18 19:00 K-Dur PO 12/25/18 19:01 ONCE ONE Sodium Chloride 10 ml 12/21/18 22:00 12/25/18 09:37 Sodium Chloride Flush Syringe 10 Ml IV 10 ml BID JOSELINE Administration Sodium Chloride 10 ml 12/21/18 19:17 Sodium Chloride Flush Syringe 10 Ml IV PRN PRN LINE FLUSH Thiamine HCl 100 mg 12/22/18 10:00 12/25/18 09:36 Vitamin B-1 PO 100 mg QDAY JOSELINE Administration
[2018-12-25] MEDS ORDERED: K-DUR PO ONE ×3 (18:00→19:00)
[2018-12-26 06:24] LABS: BUN/Creatinine Ratio 11; Blood Urea Nitrogen 8 mg/dL (9-20); Calcium 9.3 mg/dL (8.4-10.2); Hemolysis Index 6
[2018-12-26] MEDS: HumaLOG SUB-Q SCH ×2 (08:40→13:03)
[2018-12-26] MEDS: ZESTRIL PO SCH (09:32)
[2018-12-26] MEDS: FOLVITE PO SCH (09:32)
[2018-12-26] MEDS: THERAGRAN Tab PO SCH (09:32)
[2018-12-26] MEDS: HEPARIN SUB-Q SCH (09:34)
[2018-12-26] MEDS: VITAMIN B-1 PO SCH (09:43)
[2018-12-26] MEDS: SODIUM CHLORIDE FLUSH SYRINGE 10 ML IV SCH (09:45)
[2018-12-26 12:27] VITALS: BP 148/94
--- NOTE | 2018-12-26 14:03 | Discharge Summary ---
Providers - Providers Date of Admission: 12/21/18 19:18 Date of discharge: 12/26/18 Attending physician: JACOB MONACO 12/22/18 09:56 Consult to Physician [CONS] Routine Comment: Consulting Provider: DAQUAN DILL Physician Instructions: Reason For Exam: critical care 12/22/18 22:11 Occupational Therapy Evaluate and Treat [CONS] Routine Comment: Reason For Exam: Debility Physical Therapy Evaluation and Treat [CONS] Routine Comment: Reason For Exam: Debility 12/23/18 12:35 Consult to Wound/ET Nurse [CONS] Routine Reason For Exam: wound eval left foot amputation [facility] Hospital[facility] Condition: Fair Hospital course: 58 YO Male with DM, HTN presents to ED for evaluation. Pt states that he ran out of all his medications approximately 1 week ago. Pt reports nausea and multiple episodes of vomiting over the past 2 days with worsening symptoms over the same time frame. Pt acknowledges polyuria, polydipsia, polyphagia. Pt acknowledges ETOH intake today. EMS notified, and upon arrival the patient was found to be in distress and transported to [facility]. Pt seen and evaluated in ED and found to have DKA complicated by Acute Kidney Injury, and Metabolic Acidosis. Pt initiated on DKA protocol and admitted to ICU. Pt treated with IVF resuscitation therapy with improvement in symptoms. Pt denies fever, chills, CP, Palpitations, Trauma, BRBPR, Skin rash, ingestion of food/water from new/different sources. No prior admission for review. All listed medication reconciled at time of exam. Diabetic ketoacidosis- resolved DM type 2 with Hyperglycemia Hypokalemia- persistent Acute Kidney Injury secondary to vasomotor Nephropathy Alcohol use disorder Acute Metabolic Acidosis secondary to DKA Hypernatremia Hypokalemia Gastroenteritis Wit associated Nausea vomiting Gait abnormality Time spent for discharge: 32 min Core Measure Documentation - Palliative Care Palliative Care/ Comfort Measures: Not Applicable - Core Measures Any of the following diagnoses?: none Exam - Constitutional Vitals: Temp Pulse Resp BP Pulse Ox 98.7 F 77 18 148/94 100 12/26/18 11:57 12/26/18 11:57 12/26/18 11:57 12/26/18 11:57 12/26/18 11:57 General appearance: Present: no acute distress, well-nourished - EENT Eyes: Present: PERRL, EOM intact - Neck Neck: Present: supple, normal ROM - Respiratory Respiratory effort: normal Respiratory: bilateral: diminished, negative: rales, rhonchi, wheezing - Cardiovascular Rhythm: regular Heart Sounds: Present: S1 & S2 - Extremities Extremities: no ischemia, No edema - Abdominal General gastrointestinal: Present: soft, non-tender, non-distended, normal bowel sounds - Integumentary Integumentary: Present: clear, warm - Musculoskeletal Musculoskeletal: strength equal bilaterally - Psychiatric Psychiatric: appropriate mood/affect, cooperative - Neurologic Neurologic: CNII-XII intact, moves all extremities Plan Activity: no restrictions Diet: diabetic Additional Instructions: Advised to follow diabetic diet [facility] [Primary Care Provider] - 7 Days Prescriptions: Folic Acid [Folvite] 1 mg PO QDAY #30 tablet Insulin NPH/Regular [NovoLIN 70/30] 28 unit SUB-Q BIDDIAB 30 Days units Lisinopril [Zestril TAB] 2.5 mg PO QDAY #30 tablet
== END 2018-12-26 15:45 | disposition home or self-care (01) | DRG 637 ==
LOC: ED 16:33 → CC1 19:18 → 3A 12-23 17:53
PROVIDERS: ADMIT Internal Medicine; ATTEND Internal Medicine
DX: E11.10 Type 2 diabetes mellitus with ketoacidosis without coma (principal); N17.0 Acute kidney failure with tubular necrosis; E87.0 Hyperosmolality and hypernatremia; F10.20 Alcohol dependence, uncomplicated; Y90.9 Presence of alcohol in blood, level not specified; E87.6 Hypokalemia; K52.9 Noninfective gastroenteritis and colitis, unspecified; R68.0 Hypothermia, not associated with low environmental temperature; Z83.3 Family history of diabetes mellitus; Z82.49 Family history of ischemic heart disease and other diseases of the circulatory system; Z91.19 Patient's noncompliance with other medical treatment and regimen; Z79.84 Long term (current) use of oral hypoglycemic drugs
CPT/HCPCS: 36415; 70450; 71045; 80048; 80053; 80307; 80320; 81001; 82140; 82550; 82553; 82805; 82962; 83036; 83735; 84100; 84484; 85025; 85027; 93005; 93010; 96360; 96361; G0378; G0480; J1644; J1815; J2405; J3411; J3475; J3480; J7030

== ENCOUNTER 2019-01-17 13:34 | Inpatient (IN) | payer OTHER ==
--- NOTE | 2019-01-17 14:08 | Event Note ---
ED Screening Note ED Screening Note: pt presents with left foot edema and drainage that began this morning pt states he has an appt on jan 30 pt has had all toes amputated on the left foot PMHx DM no allergies to meds This initial assessment/diagnostic orders/clinical plan/treatment(s) is/are subject to change based on patients health status, clinical progression and re- assessment by fellow clinical providers in the ED. Further treatment and workup at subsequent clinical providers discretion. Patient/guardian urged not to elope from the ED as their condition may be serious if not clinically assessed and managed. Initial orders include: labs, XR left foot
[2019-01-17 14:37] LABS: Basophils % (Auto) 0.4 % (0.0-1.8); Eosinophils # (Auto) 0.1 K/mm3 (0.0-0.4); Eosinophils % (Auto) 0.5 % (0.0-4.3); Hematocrit 34.6 % (35.5-45.6); Hemoglobin 11.7 gm/dl (11.8-15.2); Lymphocytes # (Auto) 1.4 K/mm3 (1.2-5.4); Lymphocytes % (Auto) 14.2 % (13.4-35.0); Mean Corpuscular HGB Conc 34 % (32-34); Mean Corpuscular Volume 98 fl (84-94); Platelet Count 528 K/mm3 (140-440); Red Blood Count 3.54 M/mm3 (3.65-5.03); Red Cell Distribution Width 13.6 % (13.2-15.2)
[2019-01-17 14:48] LABS: BUN/Creatinine Ratio 11; Blood Urea Nitrogen 12 mg/dL (9-20); Calcium 9.6 mg/dL (8.4-10.2); Hemolysis Index 0
--- NOTE | 2019-01-17 15:21 | XRay Report ---
LEFT FOOT, 3 VIEWS INDICATION: Left foot wound. COMPARISON: None. IMPRESSION: There is been previous amputation of the distal foot near the level of the cuneiform bon es. Osteopenia is noted. Soft tissue gas is noted in the distal soft tissues. There also appears to be a moderate size area of ulceration in the plantar surface of the distal foot which contains packin g material. This probably represents a cellulitis. No convincing bony destruction is identified to wynn ggest osteomyelitis on x-ray. If further evaluation is needed, MRI with contrast would provide the mo st information. Signer Name: Archie Cho Jr, MD Signed: 01/17/2019 3:17 PM Workstation Name: [id number]
--- NOTE | 2019-01-17 16:19 | Emergency Department Report ---
- General Chief Complaint: Wound/Laceration Stated Complaint: (L) FOOT DRAINAGE Time Seen by Provider: 01/17/19 16:04 Source: patient Mode of arrival: Wheelchair Limitations: No Limitations - History of Present Illness Initial Comments: Patient is a 58-year-old mellitus emergency room with complaints of fever, foot pain and a wound that opened up today. Patient states she's been having pain in his foot for 2 or 3 days but today an ulcer opened up and purulent discharge came out. Patient states he then developed a fever. Patient denies chills. Patient states he's had an amputation to that same foot. Patient states the pain is a 9 out of 10. Patient states the pain is better with rest and worse with movement. Patient denies recent antibiotic use. Patient denies seeing any other physicians for this. -: Sudden Extremity Location: Left: Foot Place: home Patient Tetanus UTD: No Context: other Associated Symptoms: pain, fever - Related Data Home Medications Medication Instructions Recorded Confirmed Last Taken HumaLOG 6 - 12 units SC TID 12/24/18 01/17/19 01/17/19 Metoprolol Tartrate 50 mg PO DAILY 12/24/18 01/17/19 01/17/19 Previous Rx's Medication Instructions Recorded Last Taken Type Folic Acid [Folvite] 1 mg PO QDAY #30 tablet 12/26/18 01/17/19 Rx Insulin NPH/Regular [NovoLIN 70/30] 28 unit SUB-Q BIDDIAB 30 Days 12/26/18 01/16/19 Rx units Lisinopril [Zestril TAB] 2.5 mg PO QDAY #30 tablet 12/26/18 01/17/19 Rx Allergies Allergy/AdvReac Type Severity Reaction Status Date / Time No Known Allergies Allergy Verified 12/21/18 18:50 ED Review of Systems ROS: Stated complaint: (L) FOOT DRAINAGE Other details as noted in HPI Constitutional: fever. denies: chills Eyes: denies: eye pain, eye discharge, vision change ENT: denies: ear pain, throat pain Respiratory: denies: cough, shortness of breath, wheezing Cardiovascular: denies: chest pain, palpitations Endocrine: no symptoms reported Gastrointestinal: denies: abdominal pain, nausea, diarrhea Genitourinary: denies: urgency, dysuria Musculoskeletal: denies: back pain, joint swelling, arthralgia Skin: denies: rash, lesions Neurological: denies: headache, weakness, paresthesias Psychiatric: denies: anxiety, depression Hematological/Lymphatic: denies: easy bleeding, easy bruising ED Past Medical Hx - Past Medical History Previous Medical History?: Yes Hx Hypertension: Yes Hx Diabetes: Yes - Surgical History Past Surgical History?: Yes Additional Surgical History: all toes on left foot amputated - Family History Family history: no significant - Social History Smoking Status: Never Smoker Substance Use Type: Alcohol - Medications Home Medications: Home Medications Medication Instructions Recorded Confirmed Last Taken Type HumaLOG 6 - 12 units SC TID 12/24/18 01/17/19 01/17/19 History Metoprolol Tartrate 50 mg PO DAILY 12/24/18 01/17/19 01/17/19 History Folic Acid [Folvite] 1 mg PO QDAY #30 tablet 12/26/18 01/17/19 01/17/19 Rx Insulin NPH/Regular [NovoLIN 70/30] 28 unit SUB-Q BIDDIAB 30 Days 12/26/18 01/17/19 01/16/19 Rx units Lisinopril [Zestril TAB] 2.5 mg PO QDAY #30 tablet 12/26/18 01/17/19 01/17/19 Rx ED Physical Exam - General Limitations: No Limitations General appearance: alert, in no apparent distress - Head Head exam: Present: atraumatic, normocephalic - Eye Eye exam: Present: normal appearance - ENT ENT exam: Present: mucous membranes moist - Neck Neck exam: Present: normal inspection - Respiratory Respiratory exam: Present: normal lung sounds bilaterally. Absent: respiratory distress - Cardiovascular Cardiovascular Exam: Present: regular rate, normal rhythm. Absent: systolic murmur, diastolic murmur, rubs, gallop - GI/Abdominal GI/Abdominal exam: Present: soft, normal bowel sounds - Rectal Rectal exam: Present: deferred - Extremities Exam Extremities exam: Present: normal inspection (except for left lower extremity), other (diabetic ulcer noted to the plantar surface of the left foot. Previous indication of the toes on the left foot.) - Back Exam Back exam: Present: normal inspection - Neurological Exam Neurological exam: Present: alert, oriented X3 - Psychiatric Psychiatric exam: Present: normal affect, normal mood - Skin Skin exam: Present: warm, dry, intact, normal color. Absent: rash ED Course Vital Signs 01/17/19 01/17/19 01/17/19 14:04 16:06 18:47 Temperature 100.0 F H 99.5 F 99.2 F Pulse Rate 92 H 91 H 990 H Respiratory 18 18 18 Rate Blood Pressure 110/76 Blood Pressure 122/72 [Right] O2 Sat by Pulse 99 99 Oximetry 01/17/19 19:52 Temperature 98.8 F Pulse Rate 92 H Respiratory 16 Rate Blood Pressure Blood Pressure 129/82 [Right] O2 Sat by Pulse 99 Oximetry - Reevaluation(s) Reevaluation #1: I discussed plan of the patient. Patient agrees with plan of care. I discussed all results with patient. Patient will be admitted to the hospitalist service. 01/17/19 16:45 - Consultations Consultation #1: General surgery consult. I discussed case with Dr. Mason. Dr. Mason wants the patient admitted to the hospitalist service and a CT of the lower extremity done. 01/17/19 16:33 Consultation #2: Hospitalist consulted for admission. Hospitalist to admit patient. 01/17/19 16:35 ED Medical Decision Making - Lab Data Result diagrams: 01/17/19 14:23 01/17/19 14:23 - Radiology Data Radiology results: report reviewed CT of the left foot with IV contrast. INDICATION: Left foot ulcer.. TECHNIQUE: The patient received 100 mL of IV Omnipaque 300. All CT scans at this location are performed using CT dose reduction for ALARA by means of automated exposure control. COMPARISON: Left foot radiographs done earlier on 01/17/2019. FINDINGS: Previous amputation through the mid foot level again noted. There is a subcutaneous fluid and air collection consistent with abscess measuring about 4 x 4 by 4 cm along the lateral aspect of the residual mid foot. This is adjacent to large foot ulcer along the lateral aspect of the foot stone. There is also cortical bone lysis in the distal cuboid suggesting osteomyelitis. No additional definite areas of osteomyelitis are identified. There is heterogeneous bony demineralization likely secondary to disuse. IMPRESSION: 1. Approximately 4 cm abscess in the lateral aspect of the residual mid foot stump subjacent to the skin ulcer. 2. Findings suggesting osteomyelitis in the distal aspect of the cuboid. LEFT FOOT, 3 VIEWS INDICATION: Left foot wound. COMPARISON: None. IMPRESSION: There is been previous amputation of the distal foot near the level of the cuneiform bones. Osteopenia is noted. Soft tissue gas is noted in the distal soft tissues. There also appears to be a moderate size area of ulceration in the plantar surface of the distal foot which contains packing material. This probably represents a cellulitis. No convincing bony destruction is identified to suggest osteomyelitis on x-ray. If further evaluation is needed, M RI with contrast would provide the most information. - Medical Decision Making Patient is a 58-year-old male that presents to emergency room with complaints of left foot ulcer and drainage as well as fever. Patient found to have elevated lactic acid. Patient also found to have elevated CRP and sedimentation rate. Patient had a x-ray done which showed subcutaneous gas. General surgery consult. Recommends admission with IV antibiotics as well as CT lower extrem ity. CT lower extremity shows osteomyelitis. Patient admitted to the hospitalist service. - Differential Diagnosis SIRS. Osteomalacia. Cellulitis. Abscess. fever Critical Care Time: Yes Critical care attestation.: If time is entered above; I have spent that time in minutes in the direct care of this critically ill patient, excluding procedure time. 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 Cellulitis Qualifiers: Site of cellulitis: extremity Site of cellulitis of extremity: lower extremity Laterality: left Qualified Code(s): L03.116 - Cellulitis of left lower limb Fever Qualifiers: Fever type: unspecified Qualified Code(s): R50.9 - Fever, unspecified Diabetes Qualifiers: Diabetes mellitus type: type 2 Diabetes mellitus penitentiary insulin use: unspecified penitentiary insulin use status Diabetes mellitus complication status: with other specified complication Qualified Code(s): E11.69 - Type 2 diabetes mellitus with other specified complication Osteomyelitis Qualifiers: Osteomyelitis type: acute hematogenous Osteomyelitis location: foot Laterality: left Qualified Code(s): M86.072 - Acute hematogenous osteomyelitis, left ankle and foot Disposition: DC-09 OP ADMIT IP TO THIS HOSP Is pt being admited?: Yes Does the pt Need Aspirin: No Condition: Critical Time of Disposition: 16:32
[2019-01-17] MEDS ORDERED: CLEOCIN 600 MG/50 mL 600 MG/50 ML BAG IV ONE (16:25)
[2019-01-17] MEDS ORDERED: NACL 0.9% 1000 ML 1,000 ML IV ONE (16:25)
[2019-01-17] MEDS ORDERED: DILAUDID IV ONE (16:25)
[2019-01-17] MEDS ORDERED: HumuLIN R IV ONE (16:27)
--- NOTE | 2019-01-17 16:48 | History and Physical Report ---
History of Present Illness Chief complaint: My foot hurts History of present illness: 58 YO Male with DM, HTN presents to ED for evaluation. Pt states that he has experienced pain and redness to his left foot over the past 2 days with persistent symptoms over the same time frame. Pt states that his pain is 9/10, constant, worse with attempted weight bearing. Pt acknowledges subjective fever and also reports that his foot wound "opened up" today and had foul smelling fluid. Pt transported to [facility] via private vehicle. Pt seen and evaluated in ED and found to have Left Food Cellulitis, Hyponatremia, Acidosis, and Uncontrolled Diabetes. Pt treated with IVF resuscitation therapy and IV antibiotic therapy with improvement in symptoms. Pt denies fever, chills, CP, Palpitations, Trauma, BRBPR, Skin rash, ingestion of food/water from new/different sources. Prior admission on 12/21/18 reviewed. All listed medication reconciled at time of exam. Surgery team consulted in ED. Pt admitted to medical floor. Past History Past Medical History: diabetes, hypertension Past Surgical History: Other (Left foot) Social history: single. denies: smoking, alcohol abuse, prescription drug abuse Family history: diabetes, hypertension Medications and Allergies Allergies Allergy/AdvReac Type Severity Reaction Status Date / Time No Known Allergies Allergy Verified 12/21/18 18:50 Home Medications Medication Instructions Recorded Confirmed Last Taken Type HumaLOG 6 - 12 units SC TID 12/24/18 01/17/19 01/17/19 History Metoprolol Tartrate 50 mg PO DAILY 12/24/18 01/17/19 01/17/19 History Folic Acid [Folvite] 1 mg PO QDAY #30 tablet 12/26/18 01/17/19 01/17/19 Rx Insulin NPH/Regular [NovoLIN 70/30] 28 unit SUB-Q BIDDIAB 30 Days 12/26/18 01/17/19 01/16/19 Rx units Lisinopril [Zestril TAB] 2.5 mg PO QDAY #30 tablet 12/26/18 01/17/19 01/17/19 Rx Active Meds: Active Medications Clindamycin HCl (Cleocin 600 Mg/50 Ml) 600 mg in 50 mls @ 100 mls/hr IV ONCE ONE Stop: 01/17/19 16:54 Sodium Chloride (Nacl 0.9% 1000 Ml) 1,000 mls @ 999 mls/hr IV BOLUS ONE Stop: 01/17/19 17:25 Review of Systems Constitutional: no weight loss, no weight gain, no fever, no chills Ears, nose, mouth and throat: no ear pain, no ear discharge, no tinnitis, no decreased hearing, no nose pain, no nasal congestion, no nasal discharge Cardiovascular: no chest pain, no orthopnea, no palpitations, no rapid/irregular heart beat, no syncope, no lightheadedness Respiratory: no cough, no cough with sputum, no excessive sputum, no hemoptysis, no shortness of breath Gastrointestinal: no abdominal pain, no nausea, no vomiting, no diarrhea, no change in bowel habits, no coffee ground emesis Genitourinary Male: no flank pain, no discharge, no urinary frequency, no urinary hesitancy, no incontinence Rectal: no pain, no incontinence, no bleeding Musculoskeletal: no neck stiffness, no neck pain, no shooting arm pain, no shooting leg pain Integumentary: no rash, no pruritis, no redness Neurological: no head injury, no transient paralysis, no weakness, no parathesias, no numbness, no tingling, no syncope Psychiatric: no anxiety, no memory loss, no sleep disturbances, no insomnia, no hypersomnia, no change in libido, no disorientation Endocrine: no cold intolerance, no heat intolerance, no polyphagia, no polydipsia Hematologic/Lymphatic: no easy bruising, no easy bleeding, no lymphadenopathy Allergic/Immunologic: no urticaria, no allergic rhinitis, no anaphylaxis, no angioedema Exam - Constitutional Vitals: Temp Pulse Resp BP Pulse Ox 99.5 F 91 H 18 110/76 99 01/17/19 16:06 01/17/19 16:06 01/17/19 16:06 01/17/19 14:04 01/17/19 14:04 General appearance: Present: mild distress - EENT Eyes: Present: PERRL ENT: hearing intact, clear oral mucosa - Neck Neck: Present: supple, normal ROM - Respiratory Respiratory effort: normal Respiratory: bilateral: CTA - Cardiovascular Heart Sounds: Present: S1 & S2. Absent: rub, click - Extremities Extremities: pulses symmetrical, No edema Extremity abnormal: ulceration, erythema, other (L foot purulent discharge) Peripheral Pulses: within normal limits - Abdominal General gastrointestinal: Present: soft, non-tender, non-distended, normal bowel sounds Male genitourinary: Present: normal - Integumentary Integumentary: Present: clear, warm, dry - Musculoskeletal Musculoskeletal: gait normal, strength equal bilaterally - Psychiatric Psychiatric: appropriate mood/affect, intact judgment & insight - Neurologic Neurologic: CNII-XII intact, moves all extremities Results - Labs CBC & Chem 7: 01/17/19 14:23 01/17/19 14:23 Labs: Abnormal lab results 01/17/19 01/17/19 01/17/19 Range/Units 14:23 14:23 14:23 RBC 3.54 L (3.65-5.03) M/mm3 Hgb 11.7 L (11.8-15.2) gm/dl Hct 34.6 L (35.5-45.6) % MCV 98 H (84-94) fl MCH 33 H (28-32) pg Plt Count 528 H (140-440) K/mm3 Wallace % (Auto) 10.0 H (0.0-7.3) % Wallace # 1.0 H (0.0-0.8) K/mm3 Seg Neutrophils % 74.9 H (40.0-70.0) % Sodium 134 L (137-145) mmol/L Chloride 93.6 L (98-107) mmol/L Glucose 444 H (75-100) mg/dL POC Glucose (70-105) Lactic Acid 3.80 H* (0.7-2.0) mmol/L 01/17/19 01/17/19 Range/Units 15:15 16:50 RBC (3.65-5.03) M/mm3 Hgb (11.8-15.2) gm/dl Hct (35.5-45.6) % MCV (84-94) fl MCH (28-32) pg Plt Count (140-440) K/mm3 Wallace % (Auto) (0.0-7.3) % Wallace # (0.0-0.8) K/mm3 Seg Neutrophils % (40.0-70.0) % Sodium (137-145) mmol/L Chloride (98-107) mmol/L Glucose (75-100) mg/dL POC Glucose 344 H (70-105) Lactic Acid 3.90 H* (0.7-2.0) mmol/L Assessment and Plan - Patient Problems (1) Cellulitis of left foot Current Visit: Yes Status: Acute Plan to address problem: IV antibiotic therapy, CT LLE, surgery team consulted, wound care consulted, wound care, pain control (2) Diabetes Current Visit: Yes Status: Acute Plan to address problem: ADA diet, insulin, accu check, hypoglycemia protocol (3) Hyponatremia syndrome Current Visit: Yes Status: Acute Plan to address problem: IVF resuscitation therapy, repeat bmp (4) Metabolic acidosis Current Visit: No Status: Acute Plan to address problem: treat cellulitis, IV antibiotic therapy, (5) DVT prophylaxis Current Visit: Yes Status: Acute Plan to address problem: SCD to BLE while in bed, prophylactic lovenox
[2019-01-17] MEDS ORDERED: SODIUM CHLORIDE FLUSH SYRINGE 10 ML IV PRN (16:49)
[2019-01-17] MEDS ORDERED: PROVENTIL IH PRN (16:49)
[2019-01-17] MEDS ORDERED: TYLENOL PO PRN (16:49)
[2019-01-17] MEDS ORDERED: ZOFRAN IV PRN (16:49)
[2019-01-17] MEDS ORDERED: D50W (25GM) Syringe IV PRN (16:53)
[2019-01-17] MEDS ORDERED: VANCOMYCIN PHARMACY TO DOSE IV SCH (17:00)
[2019-01-17] MEDS ORDERED: BOOSTRIX IM ONE ×2 (17:15→18:02)
[2019-01-17] MEDS ORDERED: VANCOMYCIN 1,750 MG in NACL 0.9% 500 ML 500 ML IV ONE (17:30)
[2019-01-17] MEDS ORDERED: HumaLOG SUB-Q ONE (20:28)
[2019-01-17] MEDS: HumaLOG SUB-Q SCH (20:34)
--- NOTE | 2019-01-17 20:41 | Cat Scan Report ---
CT of the left foot with IV contrast. INDICATION: Left foot ulcer.. TECHNIQUE: The patient received 100 mL of IV Omnipaque 300. All CT scans at this location are performed using CT dose reduction for ALARA by means of automated exposure control. COMPARISON: Left foot radiographs done earlier on 01/17/2019. FINDINGS: Previous amputation through the mid foot level again noted. There is a subcutaneous fluid and air collection consistent with abscess measuring about 4 x 4 by 4 c m along the lateral aspect of the residual mid foot. This is adjacent to large foot ulcer along the l ateral aspect of the foot stone. There is also cortical bone lysis in the distal cuboid suggesting os teomyelitis. No additional definite areas of osteomyelitis are identified. There is heterogeneous bony demineralization likely secondary to disuse. IMPRESSION: 1. Approximately 4 cm abscess in the lateral aspect of the residual mid foot stump subjacent to the s kin ulcer. 2. Findings suggesting osteomyelitis in the distal aspect of the cuboid. Signer Name: Bret Hopper MD Signed: 01/17/2019 8:37 PM Workstation Name: [email or web address]
[2019-01-17] MEDS: SODIUM CHLORIDE FLUSH SYRINGE 10 ML IV SCH (22:00)
[2019-01-17] MEDS: LOVENOX SUB-Q SCH (22:26)
[2019-01-17] MEDS: PERCOCET 5/325 PO PRN (22:37)
[2019-01-17] MEDS: NACL 0.45% 1000 ML 1,000 ML IV SCH (22:38)
[2019-01-18] MEDS ORDERED: VANCOMYCIN 1,250 MG in NACL 0.9% 250ML 250 ML IV SCH (05:00)
[2019-01-18 05:55] LABS: Alanine Aminotransferase 6 units/L (7-56); Albumin 2.4 g/dL (3.9-5); BUN/Creatinine Ratio 11; Blood Urea Nitrogen 9 mg/dL (9-20); Calcium 8.9 mg/dL (8.4-10.2); Hemolysis Index 77
[2019-01-18] MEDS: HumaLOG SUB-Q SCH ×4 (06:46→18:08)
[2019-01-18 07:33] LABS: Hematocrit 27.6 % (35.5-45.6); Hemoglobin 9.5 gm/dl (11.8-15.2); Mean Corpuscular HGB Conc 35 % (32-34); Mean Corpuscular Volume 98 fl (84-94); Mean Platelet Volume 7.6 fl (6-12); Platelet Count 418 K/mm3 (140-440); Red Blood Count 2.83 M/mm3 (3.65-5.03); Red Cell Distribution Width 14.1 % (13.2-15.2)
[2019-01-18 07:34] LABS: Basophils % (Auto) 0.7 % (0.0-1.8); Eosinophils # (Auto) 0.1 K/mm3 (0.0-0.4); Eosinophils % (Auto) 1.4 % (0.0-4.3); Lymphocytes # (Auto) 1.8 K/mm3 (1.2-5.4); Lymphocytes % (Auto) 20.9 % (13.4-35.0)
[2019-01-18 07:35] LABS: Basophils # (Auto) 0.1 K/mm3 (0.0-0.1)
[2019-01-18] MEDS: NORVASC PO SCH (09:02)
[2019-01-18] MEDS: LOPRESSOR PO SCH (09:02)
[2019-01-18] MEDS: ZESTRIL PO SCH (09:02)
[2019-01-18] MEDS: NACL 0.45% 1000 ML 1,000 ML IV SCH ×2 (09:03→23:37)
[2019-01-18] MEDS: FOLVITE PO SCH (09:03)
[2019-01-18] MEDS: SODIUM CHLORIDE FLUSH SYRINGE 10 ML IV SCH ×2 (09:03→21:46)
--- NOTE | 2019-01-18 09:07 | Consultation ---
History of Present Illness Consult date: 01/18/19 Reason for consult: wound care Requesting physician: NASREEN HUIZAR III Chief complaint: left foot swelling - History of present illness History of present illness: 58yo M with diabetes, s/p L TMA (2016) presents with a one-week history of left foot swelling. Pain was also noted however he has decreased sensation in the foot. Denies any fevers, chills, nausea, vomiting. Patient found to have left foot infection and Gen. surgery was consulted for evaluation and treatment. Patient never had this before. Amputation was done in [place]. He doesn't know for sure how long the wound has been there. He just noticed it last week. Past History Past Medical History: diabetes, hypertension Past Surgical History: Other (Left foot TMA in 2017 - [place]) Social history: single. denies: smoking, alcohol abuse, prescription drug abuse Family history: diabetes, hypertension Medications and Allergies Allergies Allergy/AdvReac Type Severity Reaction Status Date / Time No Known Allergies Allergy Verified 12/21/18 18:50 Home Medications Medication Instructions Recorded Confirmed Last Taken Type HumaLOG 6 - 12 units SC TID 12/24/18 01/17/19 01/17/19 History Metoprolol Tartrate 50 mg PO DAILY 12/24/18 01/17/19 01/17/19 History Folic Acid [Folvite] 1 mg PO QDAY #30 tablet 12/26/18 01/17/19 01/17/19 Rx Insulin NPH/Regular [NovoLIN 70/30] 28 unit SUB-Q BIDDIAB 30 Days 12/26/18 01/17/19 01/16/19 Rx units Lisinopril [Zestril TAB] 2.5 mg PO QDAY #30 tablet 12/26/18 01/17/19 01/17/19 Rx Active Meds: Active Medications Acetaminophen (Tylenol) 650 mg PO Q4H PRN PRN Reason: Pain MILD(1-3)/Fever >100.5/VIVAS Albuterol (Proventil) 2.5 mg IH Q4HRT PRN PRN Reason: Shortness Of Breath Amlodipine Besylate (Norvasc) 10 mg PO DAILY [facility] Last Admin: 01/18/19 09:02 Dose: 10 mg Documented by: Dextrose (D50w (25gm) Syringe) 50 ml IV PRN PRN PRN Reason: Hypoglycemia Enoxaparin Sodium (Lovenox) 40 mg SUB-Q QDAY@2200 [facility] Last Admin: 01/17/19 22:26 Dose: 40 mg Documented by: Folic Acid (Folvite) 1 mg PO QDAY [facility] Last Admin: 01/18/19 09:03 Dose: 1 mg Documented by: Sodium Chloride (Nacl 0.45% 1000 Ml) 1,000 mls @ 75 mls/hr IV DIRECT [facility] Last Admin: 01/18/19 09:03 Dose: 75 mls/hr Documented by: Vancomycin HCl 1,500 mg/ (Sodium Chloride) 530 mls @ 333.333 mls/hr IV Q12H [facility] Insulin Human Lispro (Humalog) 0 unit SUB-Q Q6HR [facility]; Protocol Last Admin: 01/18/19 06:46 Dose: 3 unit Documented by: Lisinopril (Zestril) 2.5 mg PO QDAY [facility] Last Admin: 01/18/19 09:02 Dose: 2.5 mg Documented by: Metoprolol Tartrate (Lopressor) 50 mg PO DAILY [facility] Last Admin: 01/18/19 09:02 Dose: 50 mg Documented by: Ondansetron HCl (Zofran) 4 mg IV Q8H PRN PRN Reason: Nausea And Vomiting Oxycodone/Acetaminophen (Percocet 5/325) 1 tab PO Q6H PRN PRN Reason: Pain, Moderate (4-6) Last Admin: 01/17/19 22:37 Dose: 1 tab Documented by: Sodium Chloride (Sodium Chloride Flush Syringe 10 Ml) 10 ml IV BID [facility] Last Admin: 01/18/19 09:03 Dose: 10 ml Documented by: Sodium Chloride (Sodium Chloride Flush Syringe 10 Ml) 10 ml IV PRN PRN PRN Reason: LINE FLUSH Review of Systems - Constitutional no fever, no chills, no chronic pain - Cardiovascular no chest pain, no shortness of breath - Respiratory no cough - Gastrointestinal no abdominal pain, no nausea, no vomiting - Muskuloskeletal left: foot pain, foot swelling - Integumentary boils, foot/leg ulcers Exam Vital Signs Temp Pulse Resp BP Pulse Ox 100.0 F H 92 H 18 110/76 99 01/17/19 14:04 01/17/19 14:04 01/17/19 14:04 01/17/19 14:04 01/17/19 14:04 - General physical appearance Positive: no distress, no pain, other (does not appear ill) - Eyes Positive: normal occular movement - Respiratory Positive: normal expansion, normal respiratory effort, clear to auscultation - Cardiovascular Rhythm: regular - Extremities Extremity abnormal: edema, ulceration, other (increase temp, +fluctuance, +purulent drainage) Peripheral Pulses: abnormal (unable to be felt in left foot) - Neurologic Neurologic: alert and oriented to time, place and person - Psychiatric Psychiatric: appropriate mood/affect, intact judgment & insight, cooperative Results - Labs 01/18/19 10:09 01/18/19 04:54 Abnormal lab results 01/17/19 01/17/19 01/17/19 Range/Units 14:23 14:23 14:23 RBC 3.54 L (3.65-5.03) M/mm3 Hgb 11.7 L (11.8-15.2) gm/dl Hct 34.6 L (35.5-45.6) % MCV 98 H (84-94) fl MCH 33 H (28-32) pg MCHC (32-34) % Plt Count 528 H (140-440) K/mm3 [place] % (Auto) 10.0 H (0.0-7.3) % [place] # 1.0 H (0.0-0.8) K/mm3 Seg Neutrophils % 74.9 H (40.0-70.0) % Sodium 134 L (137-145) mmol/L Chloride 93.6 L (98-107) mmol/L Glucose 444 H (75-100) mg/dL POC Glucose (70-105) Lactic Acid 3.80 H* (0.7-2.0) mmol/L ALT (7-56) units/L C-Reactive Protein (0.00-1.30) mg/dL Albumin (3.9-5) g/dL 01/17/19 01/17/19 01/17/19 Range/Units 15:15 16:50 16:56 RBC (3.65-5.03) M/mm3 Hgb (11.8-15.2) gm/dl Hct (35.5-45.6) % MCV (84-94) fl MCH (28-32) pg MCHC (32-34) % Plt Count (140-440) K/mm3 [place] % (Auto) (0.0-7.3) % [place] # (0.0-0.8) K/mm3 Seg Neutrophils % (40.0-70.0) % Sodium (137-145) mmol/L Chloride (98-107) mmol/L Glucose (75-100) mg/dL POC Glucose 344 H (70-105) Lactic Acid 3.90 H* 2.90 H* (0.7-2.0) mmol/L ALT (7-56) units/L C-Reactive Protein (0.00-1.30) mg/dL Albumin (3.9-5) g/dL 01/17/19 01/17/19 01/17/19 Range/Units 16:56 18:16 20:31 RBC (3.65-5.03) M/mm3 Hgb (11.8-15.2) gm/dl Hct (35.5-45.6) % MCV (84-94) fl MCH (28-32) pg MCHC (32-34) % Plt Count (140-440) K/mm3 [place] % (Auto) (0.0-7.3) % [place] # (0.0-0.8) K/mm3 Seg Neutrophils % (40.0-70.0) % Sodium (137-145) mmol/L Chloride (98-107) mmol/L Glucose (75-100) mg/dL POC Glucose 310 H 365 H (70-105) Lactic Acid (0.7-2.0) mmol/L ALT (7-56) units/L C-Reactive Protein 15.40 H (0.00-1.30) mg/dL Albumin (3.9-5) g/dL 01/17/19 01/17/19 01/18/19 Range/Units 21:24 23:00 00:10 RBC (3.65-5.03) M/mm3 Hgb (11.8-15.2) gm/dl Hct (35.5-45.6) % MCV (84-94) fl MCH (28-32) pg MCHC (32-34) % Plt Count (140-440) K/mm3 [place] % (Auto) (0.0-7.3) % [place] # (0.0-0.8) K/mm3 Seg Neutrophils % (40.0-70.0) % Sodium (137-145) mmol/L Chloride (98-107) mmol/L Glucose (75-100) mg/dL POC Glucose 361 H 299 H (70-105) Lactic Acid 2.80 H* (0.7-2.0) mmol/L ALT (7-56) units/L C-Reactive Protein (0.00-1.30) mg/dL Albumin (3.9-5) g/dL 01/18/19 01/18/19 01/18/19 Range/Units 04:54 05:46 07:15 RBC 2.83 L (3.65-5.03) M/mm3 Hgb 9.5 L (11.8-15.2) gm/dl Hct 27.6 L D (35.5-45.6) % MCV 98 H (84-94) fl MCH 34 H (28-32) pg MCHC 35 H (32-34) % Plt Count (140-440) K/mm3 [place] % (Auto) 12.0 H (0.0-7.3) % [place] # 1.0 H (0.0-0.8) K/mm3 Seg Neutrophils % (40.0-70.0) % Sodium 134 L (137-145) mmol/L Chloride (98-107) mmol/L Glucose 196 H (75-100) mg/dL POC Glucose 170 H (70-105) Lactic Acid (0.7-2.0) mmol/L ALT 6 L (7-56) units/L C-Reactive Protein (0.00-1.30) mg/dL Albumin 2.4 L (3.9-5) g/dL Diabetes panel 01/17/19 01/18/19 Range/Units 14:23 04:54 Sodium 134 L 134 L (137-145) mmol/L Potassium 3.7 3.8 (3.6-5.0) mmol/L Chloride 93.6 L 98.0 (98-107) mmol/L Carbon Dioxide 24 22 (22-30) mmol/L BUN 12 9 (9-20) mg/dL Creatinine 1.1 0.8 (0.8-1.5) mg/dL Glucose 444 H 196 H (75-100) mg/dL Calcium 9.6 8.9 (8.4-10.2) mg/dL AST 20 (5-40) units/L ALT 6 L (7-56) units/L Alkaline Phosphatase 112 (35-129) units/L Total Protein 7.6 (6.3-8.2) g/dL Albumin 2.4 L (3.9-5) g/dL Calcium panel 01/17/19 01/18/19 Range/Units 14:23 04:54 Calcium 9.6 8.9 (8.4-10.2) mg/dL Albumin 2.4 L (3.9-5) g/dL Pituitary panel 01/17/19 01/18/19 Range/Units 14:23 04:54 Sodium 134 L 134 L (137-145) mmol/L Potassium 3.7 3.8 (3.6-5.0) mmol/L Chloride 93.6 L 98.0 (98-107) mmol/L Carbon Dioxide 24 22 (22-30) mmol/L BUN 12 9 (9-20) mg/dL Creatinine 1.1 0.8 (0.8-1.5) mg/dL Glucose 444 H 196 H (75-100) mg/dL Calcium 9.6 8.9 (8.4-10.2) mg/dL Adrenal panel 01/17/19 01/18/19 Range/Units 14:23 04:54 Sodium 134 L 134 L (137-145) mmol/L Potassium 3.7 3.8 (3.6-5.0) mmol/L Chloride 93.6 L 98.0 (98-107) mmol/L Carbon Dioxide 24 22 (22-30) mmol/L BUN 12 9 (9-20) mg/dL Creatinine 1.1 0.8 (0.8-1.5) mg/dL Glucose 444 H 196 H (75-100) mg/dL Calcium 9.6 8.9 (8.4-10.2) mg/dL Total Bilirubin 0.40 (0.1-1.2) mg/dL AST 20 (5-40) units/L ALT 6 L (7-56) units/L Alkaline Phosphatase 112 (35-129) units/L Total Protein 7.6 (6.3-8.2) g/dL Albumin 2.4 L (3.9-5) g/dL - Imaging Additional studies: left foot x-ray and CT reviewed Assessment and Plan - Patient Problems (1) Diabetic foot infection Current Visit: Yes Status: Acute Plan to address problem: Pt stable. Patient in need of incision and drainage of left foot abscess. We'll perform at bedside. Will return in the afternoon to perform procedure. Please call with questions time=30min
[2019-01-18] MEDS ORDERED: NON-FORMULARY (Metoprolol Tartrate 50 MG) PO SCH (10:00)
[2019-01-18] MEDS ORDERED: NON-FORMULARY (Amlodipine 10 MG) PO SCH (10:00)
[2019-01-18 10:24] LABS: Basophils % (Auto) 0.2 % (0.0-1.8); Eosinophils # (Auto) 0.1 K/mm3 (0.0-0.4); Eosinophils % (Auto) 1.5 % (0.0-4.3); Hematocrit 26.7 % (35.5-45.6); Hemoglobin 9.2 gm/dl (11.8-15.2); Lymphocytes # (Auto) 1.9 K/mm3 (1.2-5.4); Lymphocytes % (Auto) 21.7 % (13.4-35.0); Mean Corpuscular HGB Conc 35 % (32-34); Mean Corpuscular Volume 98 fl (84-94); Monocytes # (Auto) 1.2 K/mm3 (0.0-0.8); Monocytes % (Auto) 13.9 % (0.0-7.3); Platelet Count 424 K/mm3 (140-440); Red Blood Count 2.73 M/mm3 (3.65-5.03); Red Cell Distribution Width 13.8 % (13.2-15.2)
[2019-01-18] MEDS ORDERED: XYLOCAINE 1% 20 mL INFILTRATI NR (14:00)
--- NOTE | 2019-01-18 14:39 | Procedure Note ---
Date of procedure: 01/18/19 Pre-op diagnosis: left foot abscess Post-op diagnosis: same Procedure: I&D of left foot abscess Patient with a left foot abscess. Procedure, risks, benefits were discussed for incision and drainage. All questions were answered. Consent was obtained. Domingo miguel was called. Patient had actively draining pus from 2 locations. Initial attempt was made to anesthetize the planned incision areas with 1% lidocaine. It became very evident that patient has no sensation in that area. The wound was probed with cotton tip applicators. The 2 points of purulent drainage were able to be connected. The overlying skin and subcutaneous tissue were eventually sharply divided. There was a large cavity in the subcutaneous most likely the space underneath the flap that was used to close the amputation site is where the infection collected. Patient had a large amount of necrotic fat that was disconnected from the surrounding tissue and was infected. Wound was thoroughly cleaned with wound cleanser and then packed. Cultures have been taken. Purulent drainage was cleaned out. Patient tolerated the procedure well. There are no complications. Findings: large amount of purulent fluid and necrotic fat tissue in subcutaneous space. Anesthesia: local Surgeon: SIRISHA DEMPSEY Estimated blood loss: minimal Pathology: list (culture swabs) Specimen disposition: to lab Condition: stable Disposition: floor
--- NOTE | 2019-01-18 16:38 | Progress Note ---
Assessment and Plan /Cellulites of left foot with SIRS Continue IV antibiotic therapy, surgery team consulted, wound care consulted, Plan for I and D today, will follow wound culture CT of the left foot showed patient also might have osteomyelitis of the distal aspect of the cuboid We'll consult ID for further antibiotic recommendations / Diabetes mellitus type II, uncontrolled ADA diet, insulin, accu check, hypoglycemia protocol / Hyponatremia likely from hyperglycemia IVF resuscitation therapy, repeat bmp /Lactic acidosis, likely from dehydration and SIRS treat cellulitis, IV antibiotic therapy, IV fluid /Status post left foot TMJ amputation, supportive care will /DVT prophylaxis SCD to BLE while in bed, prophylactic lovenox Brief History: 58yo M with diabetes, s/p L TMA (2017) presents with a one-week history of left foot swelling at the amputation site. Patient found to have left foot infection and Gen. surgery was consulted for evaluation and treatment. Radiological data: Foot x-ray: There is been previous amputation of the distal foot near the level of the cuneiform bones. Osteopenia is noted. Soft tissue gas is noted in the distal soft tissues. There also appears to be a moderate size area of ulceration in the plantar surface of the distal foot which contains packing material. This probably represents a cellulitis. No convincing bony destruction is identified to suggest osteomyelitis on x-ray. If further evaluation is needed, MRI with contrast would provide the most information. He is a murmur or Left foot CT: 1. Approximately 4 cm abscess in the lateral aspect of the residual mid foot stump subjacent to the skin ulcer. 2. Findings suggesting osteomyelitis in the distal aspect of the cuboid. Hospitalist Physical exam: GENERAL: well-developed and well-nourished lying on bed appeared to be in no discomfort. HEENT: Normocephalic. Atraumatic. No conjunctival congestion or icterus. Patient has moist mucous membranes. NECK: Supple. Trachea midline. CHEST/LUNGS: Clear to auscultated bilaterally, breathing nonlabored. No wheezes crackles or rhonchi. HEART/CARDIOVASCULAR: Regular in rate and rhythm. S1 and S2 positive. ABDOMEN: Abdomen is soft, nontender. Patient has normal bowel sounds. SKIN: There is no rash. Warm and dry. NEURO: No focal motor deficit. Follows command. MUSCULOSKELETAL: No joint effusion or tenderness. EXTRIMITY: edema, ulceration, other (increase temp, +fluctuance, +purulent drainage, unable to be felt in left foot) PSYCH: Cooperative. Subjective Date of service: 01/18/19 Interval history: Patient seen and examined. Medical records and medication list reviewed. No acute event overnight noted by the RN. Patient denies any chest pain or difficulty breathing. Patient complains of left foot pain Plan for I and D today Discussed plan of care at bedside with patient. Objective - Constitutional Vitals: Vital Signs - 12hr 01/18/19 01/18/19 01/18/19 05:37 08:35 12:07 Temperature 98.6 F 98.0 F Pulse Rate 82 73 Respiratory 18 16 Rate Blood Pressure 146/82 105/77 O2 Sat by Pulse 99 95 98 Oximetry - Labs CBC & Chem 7: 01/18/19 10:09 01/18/19 04:54 Labs: Abnormal lab results 01/17/19 01/17/19 01/17/19 Range/Units 16:50 16:56 16:56 RBC (3.65-5.03) M/mm3 Hgb (11.8-15.2) gm/dl Hct (35.5-45.6) % MCV (84-94) fl MCH (28-32) pg MCHC (32-34) % Bennett % (Auto) (0.0-7.3) % Bennett # (0.0-0.8) K/mm3 Sodium (137-145) mmol/L Glucose (75-100) mg/dL POC Glucose 344 H (70-105) Lactic Acid 2.90 H* (0.7-2.0) mmol/L ALT (7-56) units/L C-Reactive Protein 15.40 H (0.00-1.30) mg/dL Albumin (3.9-5) g/dL 01/17/19 01/17/19 01/17/19 Range/Units 18:16 20:31 21:24 RBC (3.65-5.03) M/mm3 Hgb (11.8-15.2) gm/dl Hct (35.5-45.6) % MCV (84-94) fl MCH (28-32) pg MCHC (32-34) % Bennett % (Auto) (0.0-7.3) % Bennett # (0.0-0.8) K/mm3 Sodium (137-145) mmol/L Glucose (75-100) mg/dL POC Glucose 310 H 365 H 361 H (70-105) Lactic Acid (0.7-2.0) mmol/L ALT (7-56) units/L C-Reactive Protein (0.00-1.30) mg/dL Albumin (3.9-5) g/dL 01/17/19 01/18/19 01/18/19 Range/Units 23:00 00:10 04:54 RBC (3.65-5.03) M/mm3 Hgb (11.8-15.2) gm/dl Hct (35.5-45.6) % MCV (84-94) fl MCH (28-32) pg MCHC (32-34) % [place] % (Auto) (0.0-7.3) % Bennett # (0.0-0.8) K/mm3 Sodium 134 L (137-145) mmol/L Glucose 196 H (75-100) mg/dL POC Glucose 299 H (70-105) Lactic Acid 2.80 H* (0.7-2.0) mmol/L ALT 6 L (7-56) units/L C-Reactive Protein (0.00-1.30) mg/dL Albumin 2.4 L (3.9-5) g/dL 01/18/19 01/18/19 01/18/19 Range/Units 05:46 07:15 10:09 RBC 2.83 L 2.73 L (3.65-5.03) M/mm3 Hgb 9.5 L 9.2 L (11.8-15.2) gm/dl Hct 27.6 L D 26.7 L (35.5-45.6) % MCV 98 H 98 H (84-94) fl MCH 34 H 34 H (28-32) pg MCHC 35 H 35 H (32-34) % Bennett % (Auto) 12.0 H 13.9 H (0.0-7.3) % Bennett # 1.0 H 1.2 H (0.0-0.8) K/mm3 Sodium (137-145) mmol/L Glucose (75-100) mg/dL POC Glucose 170 H (70-105) Lactic Acid (0.7-2.0) mmol/L ALT (7-56) units/L C-Reactive Protein (0.00-1.30) mg/dL Albumin (3.9-5) g/dL 01/18/19 Range/Units 11:34 RBC (3.65-5.03) M/mm3 Hgb (11.8-15.2) gm/dl Hct (35.5-45.6) % MCV (84-94) fl MCH (28-32) pg MCHC (32-34) % Bennett % (Auto) (0.0-7.3) % Bennett # (0.0-0.8) K/mm3 Sodium (137-145) mmol/L Glucose (75-100) mg/dL POC Glucose 351 H (70-105) Lactic Acid (0.7-2.0) mmol/L ALT (7-56) units/L C-Reactive Protein (0.00-1.30) mg/dL Albumin (3.9-5) g/dL
[2019-01-18] MEDS: VANCOMYCIN 1,500 MG in NACL 0.9% 500 ML 500 ML IV SCH (21:46)
[2019-01-18] MEDS: LOVENOX SUB-Q SCH (21:46)
[2019-01-19] MEDS: HumaLOG SUB-Q SCH ×4 (00:36→17:00)
[2019-01-19] MEDS: VANCOMYCIN 1,500 MG in NACL 0.9% 500 ML 500 ML IV SCH (09:19)
[2019-01-19] MEDS: FOLVITE PO SCH (09:23)
[2019-01-19] MEDS: LOPRESSOR PO SCH (09:23)
[2019-01-19] MEDS: NORVASC PO SCH (09:23)
[2019-01-19] MEDS: ZESTRIL PO SCH (09:23)
[2019-01-19] MEDS: SODIUM CHLORIDE FLUSH SYRINGE 10 ML IV SCH ×2 (09:24→22:23)
--- NOTE | 2019-01-19 12:05 | Consultation ---
History of Present Illness - Reason for Consult Consult date: 01/18/19 Lower extremity cellulitis, possible osteomyelitis Requesting physician: HANSA SHINE - History of Present Illness This patient is a 58-year old male with a past medical history of DM and hypertension that presents to the ED on 01/17/19 with pain and redness to his left foot over the past 2 days with worsening symptoms with weight bearing. He acknowledges subjective fever and report that his left foot wound opened up and had foul smelling purulent drainage. On admission WBC 9.8, Creatinie 0.8, Lactic Acid 3.80, Temperature 100. HR 92. Left foot xray shows previous amputation of the distal foot. Soft tissue gas is noted in the distal soft tissues. Probable cellulitis. tissues. Lower extremity CT shows 4 cm abscess in the lateral aspect of the residual mid foot stump subjacent to the skin ulcer.Findings suggesting osteomyelitis in the distal aspect of the cuboid. Blood cultures show no growth to date. Wound cultures grew GNR. Patient states that he had a Left TMA 2016 in [place]. He experienced prulent drainage and swelling later that year. s/p incision and drainage 05/2017. He started having reoccurrence of symptoms 06/17. Moved to [place], now presents at [facility]. Denies alcohol or substance abuse. Reports prior tobacco abuse, cess ation greater than 10 years. Review of Systems: General: no fever, chills, nightsweats, unintentional weight change, or change in appetite Cutaneous: no rash, pruritus Head: no headaches or injury Eyes: no changes in vision, eye pain, double vision Ears: no ear pain, ear discharge, ringing or hearing loss Nose: no nose bleeding, stuffiness Mouth & throat: no bleeding gums, no horseness, no dental problems, or swollen glands Neck: no pain, node enlargement/lumps, tyroid enlargement or tenderness Respiratory: no cough, wheezing, sputum, hemoptysis, pleuritic chest pain Cardiovascular: no chest pain, leg edema, cyanosis, MITCHELL, orthopnea Musculoskeletal: Left foot diabetic ulceration. Purulent drainage on admission.+ dressing. Gastrointestinal: no nausea, vomiting, hematemesis, diarrhea, constipation, melena, bright red blood in stools, fecal incontinence, jaundice Genitourinary/Reproductive: no frequent urination, no dysuria, hematuria, incontinence Neurogical: no seizures, no headaches, no weakness, no paresthesias, no loss of speech or vision; no memory loss, no vertigo, no tremors, no numbness Psychiatric: stable mood; no excessive anxiety, sadness or moodiness Past History Past Medical History: diabetes, hypertension Past Surgical History: Other (Left foot TMA in 2017 - [place]) Social history: single. denies: smoking, alcohol abuse, prescription drug abuse Family history: diabetes, hypertension Medications and Allergies Allergies Allergy/AdvReac Type Severity Reaction Status Date / Time No Known Allergies Allergy Verified 12/21/18 18:50 Home Medications Medication Instructions Recorded Confirmed Last Taken Type HumaLOG 6 - 12 units SC TID 12/24/18 01/17/19 01/17/19 History Metoprolol Tartrate 50 mg PO DAILY 12/24/18 01/17/19 01/17/19 History Folic Acid [Folvite] 1 mg PO QDAY #30 tablet 12/26/18 01/17/19 01/17/19 Rx Insulin NPH/Regular [NovoLIN 70/30] 28 unit SUB-Q BIDDIAB 30 Days 12/26/18 01/17/19 01/16/19 Rx units Lisinopril [Zestril TAB] 2.5 mg PO QDAY #30 tablet 12/26/18 01/17/19 01/17/19 Rx Active Meds: Active Medications Acetaminophen (Tylenol) 650 mg PO Q4H PRN PRN Reason: Pain MILD(1-3)/Fever >100.5/VIVAS Albuterol (Proventil) 2.5 mg IH Q4HRT PRN PRN Reason: Shortness Of Breath Amlodipine Besylate (Norvasc) 10 mg PO DAILY [facility] Last Admin: 01/19/19 09:23 Dose: 10 mg Documented by: Dextrose (D50w (25gm) Syringe) 50 ml IV PRN PRN PRN Reason: Hypoglycemia Enoxaparin Sodium (Lovenox) 40 mg SUB-Q QDAY@2200 [facility] Last Admin: 01/18/19 21:46 Dose: 40 mg Documented by: Folic Acid (Folvite) 1 mg PO QDAY [facility] Last Admin: 01/19/19 09:23 Dose: 1 mg Documented by: Sodium Chloride (Nacl 0.45% 1000 Ml) 1,000 mls @ 75 mls/hr IV DIRECT [facility] Last Admin: 01/18/19 23:37 Dose: 75 mls/hr Documented by: Vancomycin HCl 1,500 mg/ (Sodium Chloride) 530 mls @ 333.333 mls/hr IV Q12H [facility] Last Admin: 01/19/19 09:19 Dose: 333.333 mls/hr Documented by: Insulin Human Isoph/Insulin Regular (Humulin 70/30) 20 unit SUB-Q BIDDIAB [facility] Last Admin: 01/19/19 08:00 Dose: 20 unit Documented by: Insulin Human Lispro (Humalog) 0 unit SUB-Q Q6HR [facility]; Protocol Last Admin: 01/19/19 06:25 Dose: 3 unit Documented by: Lisinopril (Zestril) 2.5 mg PO QDAY [facility] Last Admin: 01/19/19 09:23 Dose: 2.5 mg Documented by: Metoprolol Tartrate (Lopressor) 50 mg PO DAILY [facility] Last Admin: 01/19/19 09:23 Dose: 50 mg Documented by: Ondansetron HCl (Zofran) 4 mg IV Q8H PRN PRN Reason: Nausea And Vomiting Oxycodone/Acetaminophen (Percocet 5/325) 1 tab PO Q6H PRN PRN Reason: Pain, Moderate (4-6) Last Admin: 01/17/19 22:37 Dose: 1 tab Documented by: Sodium Chloride (Sodium Chloride Flush Syringe 10 Ml) 10 ml IV BID [facility] Last Admin: 01/19/19 09:24 Dose: 10 ml Documented by: Sodium Chloride (Sodium Chloride Flush Syringe 10 Ml) 10 ml IV PRN PRN PRN Reason: LINE FLUSH Physical Examination - Physical Exam Narrative exam: Constitutional: Alert, slightly anxious. no acute distress Head, Ears, Nose: Normocephalic, atraumatic. External ears, nose normal Eyes: Conjunctivae/corneas clear. No icterus. No ptosis. Neck: Supple, no meningeal signs Oral: dentition fair. No thrush. Oral mucosa moist Cardiovascular: S1, S2 normal. Respiratory: Good air entry, clear to auscultation bilaterally GI: Soft, non-tender; bowel sounds normal. No peritoneal signs Musculoskeletal: Left TMA diabetic ulceration , +edema.. +dressing c/d/i Skin: same as above Hem/Lymphatic: No palpable cervical or supraclavicular nodes. No lymphangitis Psych: Mood ok. Affect normal Neurological: Awake, alert, oriented. - Constitutional Vitals: Vital Signs Temp Pulse Resp BP Pulse Ox 98.3 F 73 18 129/81 99 01/19/19 05:37 01/19/19 05:37 01/19/19 05:37 01/19/19 05:37 01/19/19 05:37 Temperature -Last 24 Hours Temperature 98.3 F Temperature 98.4 F Temperature 99.2 F Temperature 98.0 F Results - Labs CBC & Chem 7: 01/18/19 10:09 01/18/19 04:54 Labs: Abnormal lab results 01/18/19 01/19/19 01/19/19 Range/Units 17:23 00:07 05:43 POC Glucose 283 H 176 H 168 H (70-105) Assessment and Plan Cultures: 01/17/19 Blood; no growth to date 01/18/19 Left foot: GNR A/P: 58-year old male with a past medical history of DM and hypertension that presents to the ED on 01/17/19 with pain and redness to his left foot over the past 2 days with worsening symptoms with weight bearing. He acknowledges subjective fever and report that his left foot wound opened up and had foul smelling purulent drainage. Admitted with: 1. Left TMA diabetic ulceration with abscess: Left lower extremity CT shows 4 cm abscess in the lateral aspect of the residual mid foot stump subjacent to the skin ulcer. Findings suggesting osteomyelitis. s/p I&D of left foot abscess on 01/18/19. Large amount of purulent fluid and necrotic fat tissue in subcutaneous space. Appreciate cultures that were sent. Dr. Mason following. Left foot wound culture grew GNR. ESR >140. CRP 15.4, Will follow-up ID and susceptibility. Currently being treated with vancomycin. 2.. Type 2 Diabetes: recommend tight gylcemic control Recommendations -Discontinue Vancomycin -Start Cefepime 2 gm every 12 hours -Start Flagyl 500mg every 8 hours -Follow-up wound culture for ID and susceptibility -Follow-up deep surgical cultures -Arterial Duplex Doppler ordered -PICC line ordered for OPAT, anticipate [address] Solitario is automation tech this weekend, . Please call for questions. [facility] M: [phone] O:[phone]
--- NOTE | 2019-01-19 12:26 | Progress Note ---
Assessment and Plan /Cellulites of left foot with SIRS Continue IV antibiotic therapy, surgery team consulted, wound care consulted, s/p I and D yesterday, will follow wound culture CT of the left foot showed patient also might have osteomyelitis of the distal aspect of the cuboid Consulted ID for further antibiotic recommendations / Diabetes mellitus type II, uncontrolled ADA diet, insulin, accu check, hypoglycemia protocol / Hyponatremia likely from hyperglycemia IVF resuscitation therapy, repeat bmp /Lactic acidosis, likely from dehydration and SIRS treat cellulitis, IV antibiotic therapy, IV fluid /Status post left foot TMA amputation, cont supportive care /DVT prophylaxis SCD to BLE while in bed, prophylactic lovenox Brief History: 58yo M with diabetes, s/p L TMA (2017) presents with a one-week history of left foot swelling at the amputation site. Patient found to have left foot infection and Gen. surgery was consulted for evaluation and treatment. Radiological data: Foot x-ray: There is been previous amputation of the distal foot near the level of the cuneiform bones. Osteopenia is noted. Soft tissue gas is noted in the distal soft tissues. There also appears to be a moderate size area of ulceration in the plantar surface of the distal foot which contains packing material. This probably represents a cellulitis. No convincing bony destruction is identified to suggest osteomyelitis on x-ray. If further evaluation is needed, MRI with contrast would provide the most information. He is a murmur or Left foot CT: 1. Approximately 4 cm abscess in the lateral aspect of the residual mid foot stump subjacent to the skin ulcer. 2. Findings suggesting osteomyelitis in the distal aspect of the cuboid. Hospitalist Physical exam: GENERAL: well-developed and well-nourished -[place] male lying on bed appeared to be in no discomfort. HEENT: Normocephalic. Atraumatic. No conjunctival congestion or icterus. Patient has moist mucous membranes. NECK: Supple. Trachea midline. CHEST/LUNGS: Clear to auscultated bilaterally, breathing nonlabored. No wheezes crackles or rhonchi. HEART/CARDIOVASCULAR: Regular in rate and rhythm. S1 and S2 positive. ABDOMEN: Abdomen is soft, nontender. Patient has normal bowel sounds. SKIN: There is no rash. Warm and dry. NEURO: No focal motor deficit. Follows command. MUSCULOSKELETAL: No joint effusion or tenderness. EXTRIMITY: edema, left foot wound dressing PSYCH: Cooperative. Subjective Date of service: 01/19/19 Interval history: Patient seen and examined. Medical records and medication list reviewed. No acute event overnight noted by the RN. Patient denies any chest pain or difficulty breathing. s/p I and D yesterday, pending surgical culture Discussed plan of care at bedside with patient. Objective - Constitutional Vitals: Vital Signs - 12hr 01/19/19 05:37 Temperature 98.3 F Pulse Rate 73 Respiratory 18 Rate Blood Pressure 129/81 O2 Sat by Pulse 99 Oximetry - Labs CBC & Chem 7: 01/18/19 10:09 01/20/19 09:04 Labs: Abnormal lab results 01/18/19 01/19/19 01/19/19 Range/Units 17:23 00:07 05:43 POC Glucose 283 H 176 H 168 H (70-105)
[2019-01-19] MEDS: FLAGYL 500 MG/100 ML 500 MG/100 ML BAG IV SCH ×2 (13:16→23:08)
[2019-01-19] MEDS: PERCOCET 5/325 PO PRN (13:21)
--- NOTE | 2019-01-19 13:42 | Progress Note ---
Assessment and Plan - Patient Problems (1) Diabetic foot infection Current Visit: Yes Status: Acute Plan to address problem: s/p left foot I&D (01/18/19) - POD#1. Discussed case with WCN. Rec: 1) wound care per WCN Will be available if needed. Please call with questions. Subjective Date of service: 01/19/19 Patient Reports: Positive: no new complaints Objective Vital Signs - 12hr 01/19/19 05:37 Temperature 98.3 F Pulse Rate 73 Respiratory 18 Rate Blood Pressure 129/81 O2 Sat by Pulse 99 Oximetry - General physical appearance no distress, no pain - Respiratory normal expansion, normal respiratory effort - Integumentary other (dressing dry) - Labs 01/18/19 10:09 01/18/19 04:54
[2019-01-19] MEDS: MAXIPIME/NS 2 GM/100 ML 2 GM/100 ML BAG IV SCH ×2 (14:00→22:22)
--- NOTE | 2019-01-19 16:41 | Vascular Lab Report ---
DUPLEX DOPPLER LOWER EXTREMITY ARTERIAL, BILATERAL INDICATION: diabetic foot, osteomyelitis. TECHNIQUE: Arterial duplex examination of both lower extremities performed using B-mode, color flow and spectral Doppler assessment. FINDINGS: RIGHT: Common Femoral Artery: PSV 84 cm/sec. Triphasic waveform. Proximal SFA: PSV 87 cm/sec. Triphasic waveform. Mid SFA: PSV 92 cm/sec. Triphasic waveform. Distal SFA: PSV 68 cm/sec. Triphasic waveform. Popliteal artery: PSV 83 cm/sec. Triphasic waveform. Posterior tibial artery: PSV 83 cm/sec. Triphasic waveform. Dorsalis Pedis Artery: PSV 104 cm/sec. Triphasic waveform. LEFT: Common Femoral Artery: PSV 70 cm/sec. Triphasic waveform. Proximal SFA: PSV 100 cm/sec. Triphasic waveform. Mid SFA: PSV 109 cm/sec. Triphasic waveform. Distal SFA: PSV 82 cm/sec. Triphasic waveform. Popliteal artery: PSV 83 cm/sec. Biphasic waveform. Posterior tibial artery: PSV 137 cm/sec. Monophasic waveform. Dorsalis Pedis Artery: PSV 128 cm/sec. Monophasic waveform. IMPRESSION: 1. There are monophasic waveforms in the posterior tibial and dorsalis pedis arteries on the left wit h some mild velocity elevation characteristic distal disease on the left. Doppler Waveform: * Triphasic is normal. * Biphasic is abnormal if clear transition from triphasic signal along vascular tree. * Monophasic is abnormal. Signer Name: Jose Judd MD Signed: 01/19/2019 4:36 PM Workstation Name: [id number]
[2019-01-19] MEDS: LOVENOX SUB-Q SCH (22:22)
[2019-01-19] MEDS: NACL 0.45% 1000 ML 1,000 ML IV SCH (23:08)
[2019-01-20] MEDS: HumaLOG SUB-Q SCH ×4 (01:14→18:16)
[2019-01-20] MEDS: FLAGYL 500 MG/100 ML 500 MG/100 ML BAG IV SCH ×3 (05:21→22:00)
[2019-01-20 09:36] LABS: BUN/Creatinine Ratio 9; Blood Urea Nitrogen 6 mg/dL (9-20); Calcium 8.9 mg/dL (8.4-10.2); Hemolysis Index 9
[2019-01-20] MEDS: NORVASC PO SCH (11:26)
[2019-01-20] MEDS: LOPRESSOR PO SCH (11:27)
[2019-01-20] MEDS: FOLVITE PO SCH (11:27)
[2019-01-20] MEDS: MAXIPIME/NS 2 GM/100 ML 2 GM/100 ML BAG IV SCH ×2 (11:27→21:59)
[2019-01-20] MEDS: SODIUM CHLORIDE FLUSH SYRINGE 10 ML IV SCH ×2 (11:28→22:00)
[2019-01-20] MEDS: ZESTRIL PO SCH (11:28)
--- NOTE | 2019-01-20 11:32 | XRay Report ---
CHEST 1 VIEW INDICATION / CLINICAL INFORMATION: GILDA picc placement. COMPARISON: 12/21/2018 FINDINGS: SUPPORT DEVICES: PICC line has been placed from a left upper extremity approach with the tip projecti ng in the expected location of the SVC. HEART / MEDIASTINUM: No significant abnormality. LUNGS / PLEURA: No significant pulmonary or pleural abnormality. No pneumothorax. ADDITIONAL FINDINGS: No significant additional findings. IMPRESSION: 1. No acute findings. 2. Satisfactory positioning of PICC line Signer Name: Latoya Dominique MD Signed: 01/20/2019 11:28 AM Workstation Name: [id number]
--- NOTE | 2019-01-20 12:30 | Progress Note ---
Assessment and Plan /Cellulites of left foot with SIRS Continue IV antibiotic therapy, surgery team consulted, wound care consulted, s/p I and D, wound culture growing gram-negative rods CT of the left foot showed patient also might have osteomyelitis of the distal aspect of the cuboid Consulted ID for further antibiotic recommendations Per ID: -Discontinue Vancomycin -Start Cefepime 2 gm every 12 hours -Start Flagyl 500mg every 8 hours -Follow-up wound culture for ID and susceptibility -Follow-up deep surgical cultures -Arterial Duplex Doppler ordered -PICC line ordered for OPAT, anticipate 6 weeks of therapy / Diabetes mellitus type II, uncontrolled ADA diet, insulin, accu check, hypoglycemia protocol / Hyponatremia likely from hyperglycemia IVF resuscitation therapy, repeat bmp /Lactic acidosis, likely from dehydration and SIRS treat cellulitis, IV antibiotic therapy, IV fluid /Status post left foot TMA amputation, cont supportive care /DVT prophylaxis SCD to BLE while in bed, prophylactic lovenox Brief History: 58yo M with diabetes, s/p L TMA (2016) presents with a one-week history of left foot swelling at the amputation site. Patient found to have left foot infection and Gen. surgery was consulted for evaluation and treatment. Radiological data: Foot x-ray: There is been previous amputation of the distal foot near the level of the cuneiform bones. Osteopenia is noted. Soft tissue gas is noted in the distal soft tissues. There also appears to be a moderate size area of ulceration in the plantar surface of the distal foot which contains packing material. This pro bably represents a cellulitis. No convincing bony destruction is identified to suggest osteomyelitis on x-ray. If further evaluation is needed, MRI with contrast would provide the most information. He is a murmur or Left foot CT: 1. Approximately 4 cm abscess in the lateral aspect of the residual mid foot stump subjacent to the skin ulcer. 2. Findings suggesting osteomyelitis in the distal aspect of the cuboid. Hospitalist Physical exam: GENERAL: well-developed and well-nourished -Citizen [place] male lying on bed appeared to be in no discomfort. HEENT: Normocephalic. Atraumatic. No conjunctival congestion or icterus. Patient has moist mucous membranes. NECK: Supple. Trachea midline. CHEST/LUNGS: Clear to auscultated bilaterally, breathing nonlabored. No wheezes crackles or rhonchi. HEART/CARDIOVASCULAR: Regular in rate and rhythm. S1 and S2 positive. ABDOMEN: Abdomen is soft, nontender. Patient has normal bowel sounds. SKIN: There is no rash. Warm and dry. NEURO: No focal motor deficit. Follows command. MUSCULOSKELETAL: No joint effusion or tenderness. EXTRIMITY: edema, left foot wound dressing PSYCH: Cooperative. Subjective Date of service: 01/20/19 Interval history: Patient seen and examined. Medical records and medication list reviewed. No acute event overnight noted by the RN. Patient denies any chest pain or difficulty breathing. pending final surgical culture, will need IV antibiotics on discharge Discussed plan of care at bedside with patient. Objective - Constitutional Vitals: Vital Signs - 12hr 01/20/19 01/20/19 01/20/19 05:38 11:26 11:27 Temperature 98.3 F Pulse Rate 77 77 77 Respiratory 18 Rate Blood Pressure 132/82 132/88 132/82 O2 Sat by Pulse 99 Oximetry 01/20/19 11:28 Temperature Pulse Rate 77 Respiratory Rate Blood Pressure 132/82 O2 Sat by Pulse Oximetry - Labs CBC & Chem 7: 01/18/19 10:09 01/20/19 09:04 Labs: Abnormal lab results 01/19/19 01/19/19 01/19/19 Range/Units 12:35 17:19 23:43 BUN (9-20) mg/dL Creatinine (0.8-1.5) mg/dL Glucose (75-100) mg/dL POC Glucose 231 H 216 H 214 H (70-105) 01/20/19 01/20/19 Range/Units 05:44 09:04 BUN 6 L (9-20) mg/dL Creatinine 0.7 L (0.8-1.5) mg/dL Glucose 197 H (75-100) mg/dL POC Glucose 143 H (70-105)
[2019-01-20] MEDS: NACL 0.45% 1000 ML 1,000 ML IV SCH (15:10)
[2019-01-20] MEDS: PERCOCET 5/325 PO PRN (20:01)
[2019-01-20] MEDS: LOVENOX SUB-Q SCH (22:01)
[2019-01-21] MEDS: HumaLOG SUB-Q SCH ×5 (00:13→22:45)
[2019-01-21] MEDS: FLAGYL 500 MG/100 ML 500 MG/100 ML BAG IV SCH ×3 (05:15→22:45)
[2019-01-21] MEDS: NACL 0.45% 1000 ML 1,000 ML IV SCH ×2 (08:50→22:45)
[2019-01-21] MEDS: MAXIPIME/NS 2 GM/100 ML 2 GM/100 ML BAG IV SCH (12:03)
[2019-01-21] MEDS: FOLVITE PO SCH (12:04)
[2019-01-21] MEDS: ZESTRIL PO SCH (12:04)
[2019-01-21] MEDS: NORVASC PO SCH (12:06)
[2019-01-21] MEDS: LOPRESSOR PO SCH (12:06)
[2019-01-21] MEDS: SODIUM CHLORIDE FLUSH SYRINGE 10 ML IV SCH ×2 (12:07→22:45)
--- NOTE | 2019-01-21 12:11 | Progress Note ---
Assessment and Plan Cultures: 01/17/19 Blood; no growth 01/18/19 Left foot:E.coli, garcia susceptible 01/18/19 Left foot anaerobic : no growth 01/17/19 MRSA PCR: positive A/P: 58-year old male with a past medical history of DM and hypertension that presents to the ED on 01/17/19 with pain and redness to his left foot over the past 2 days with worsening symptoms with weight bearing. He acknowledges subjective fever and report that his left foot wound opened up and had foul smelling purulent drainage. Admitted with: 1. Left TMA diabetic ulceration with abscess: Left lower extremity CT shows 4 cm abscess in the lateral aspect of the residual mid foot stump subjacent to the skin ulcer. Findings suggesting osteomyelitis. s/p I&D of left foot abscess on 01/18/19. Large amount of purulent fluid and necrotic fat tissue in subcutaneous space. Appreciate cultures that were sent. Dr. Mason following. Left foot wound culture grew E.coli, garcia susceptible. ESR >140. CRP 15.4, Arterial doppler showed monophasic waveforms in the posterior tibial and dorsalis pedis arteries on the left with some mild velocity elevation characteristic distal disease. 2.. Type 2 Diabetes: recommend tight gylcemic control Recommendations -Discontinue Cefepime Start Ceftriaxone 2gm IV every 24 hours -Continue Flagyl 500mg every 8 hours until 01/23/19 -Anticipate discharge on Ceftriaxone 2 gm IV every 24 hours for 6 weeks ending 03/04/19 -Order placed with case management -Consider vascular consult [facility] M: [phone] O:[phone] Subjective Date of service: 01/21/19 Interval history: Patient seen and examined. Reports no generalized pain or weakness. no fevers. Objective - Exam Narrative Exam: Constitutional: Alert. Awake. No acute distress Head, Ears, Nose: Normocephalic, atraumatic. External ears, nose normal Eyes: Conjunctivae/corneas clear. No icterus. No ptosis. Neck: Supple, no meningeal signs Oral: dentition endentulous.. No thrush. Oral mucosa moist Cardiovascular: S1, S2 normal. Respiratory: Good air entry, clear to auscultation bilaterally GI: Soft, non-tender; bowel sounds normal. No peritoneal signs Musculoskeletal: Left TMA diabetic ulceration , +edema.. +dressing c/d/i Skin: same as above Hem/Lymphatic: No palpable cervical or supraclavicular nodes. No lymphangitis Psych: Mood ok. Affect normal Neurological: Awake, alert, oriented. - Constitutional Vitals: Vital Signs Temp Pulse Resp BP Pulse Ox 98.1 F 63 16 137/87 100 01/21/19 11:53 01/21/19 12:06 01/21/19 11:53 01/21/19 12:06 01/21/19 11:53 Temperature -Last 24 Hours Temperature 98.1 F Temperature 98.3 F Temperature 98.9 F Temperature 98.2 F Temperature 98.2 F - Labs CBC & Chem 7: 01/18/19 10:09 01/20/19 09:04 Labs: Abnormal lab results 01/20/19 01/20/19 01/20/19 Range/Units 12:52 17:11 21:27 POC Glucose 162 H 182 H 219 H (70-105) 01/21/19 01/21/19 Range/Units 07:56 11:58 POC Glucose 176 H 218 H (70-105)
[2019-01-21] MEDS: PERCOCET 5/325 PO PRN (12:30)
--- NOTE | 2019-01-21 15:08 | Progress Note ---
Assessment and Plan /Cellulites and abscess of left foot with SIRS Continue IV antibiotic therapy, surgery team consulted, wound care consulted, s/p I and D, wound culture growing gram-negative rods - Escherichia coli CT of the left foot showed patient also might have osteomyelitis of the distal aspect of the cuboid Consulted ID for further antibiotic recommendations Per ID: -Discontinued Vancomycin, Discontinue Cefepime Start Ceftriaxone 2gm IV every 24 hours -Continue Flagyl 500mg every 8 hours until 01/23/19 -Anticipate discharge on Ceftriaxone 2 gm IV every 24 hours for 6 weeks ending 03/04/19 -Order placed with case management /Peripheral vascular disease, continue aspirin and statin Consult vascular / Diabetes mellitus type II, uncontrolled ADA diet, insulin, accu check, hypoglycemia protocol / Hyponatremia likely from hyperglycemia IVF resuscitation therapy, repeat bmp /Lactic acidosis, likely from dehydration and SIRS treat cellulitis, IV antibiotic therapy, IV fluid /Status post left foot TMA amputation, cont supportive care /DVT prophylaxis SCD to BLE while in bed, prophylactic lovenox Brief History: 58yo M with diabetes, s/p L TMA (2016) presents with a one-week history of left foot swelling at the amputation site. Patient found to have left foot infection and Gen. surgery was consulted for evaluation and treatment. Radiological data: Foot x-ray: There is been previous amputation of the distal foot near the level of the cuneiform bones. Osteopenia is noted. Soft tissue gas is noted in the distal soft tissues. There also appears to be a moderate size area of ulceration in the plantar surface of the distal foot which contains packing material. This probably represents a cellulitis. No convincing bony destruction is identified to suggest osteomyelitis on x-ray. If further evaluation is needed, MRI with contrast would provide the most information. He is a murmur or Left foot CT: 1. Approximately 4 cm abscess in the lateral aspect of the residual mid foot stump subjacent to the skin ulcer. 2. Findings suggesting osteomyelitis in the distal aspect of the cuboid. Hospitalist Physical exam: GENERAL: well-developed and well-nourished -U[place]and[place] male lying on bed appeared to be in no discomfort. HEENT: Normocephalic. Atraumatic. No conjunctival congestion or icterus. Patient has moist mucous membranes. NECK: Supple. Trachea midline. CHEST/LUNGS: Clear to auscultated bilaterally, breathing nonlabored. No wheezes crackles or rhonchi. HEART/CARDIOVASCULAR: Regular in rate and rhythm. S1 and S2 positive. ABDOMEN: Abdomen is soft, nontender. Patient has normal bowel sounds. SKIN: There is no rash. Warm and dry. NEURO: No focal motor deficit. Follows command. MUSCULOSKELETAL: No joint effusion or tenderness. EXTRIMITY: edema, left foot wound dressing PSYCH: Cooperative. Subjective Date of service: 01/21/19 Interval history: Patient seen and examined. Medical records and medication list reviewed. No acute event overnight noted by the RN. Patient denies any chest pain or difficulty breathing. will need IV antibiotics on discharge, ordered for a PICC line Positive MRSA on nares, placed on contact isolation Discussed plan of care at bedside with patient. Objective - Constitutional Vitals: Vital Signs - 12hr 01/21/19 01/21/19 01/21/19 05:12 11:53 12:04 Temperature 98.3 F 98.1 F Pulse Rate 68 63 63 Respiratory 18 16 Rate Blood Pressure 129/79 137/87 137/87 O2 Sat by Pulse 99 100 Oximetry 01/21/19 12:06 Temperature Pulse Rate 63 Respiratory Rate Blood Pressure 137/87 O2 Sat by Pulse Oximetry - Labs CBC & Chem 7: 01/18/19 10:09 01/20/19 09:04 Labs: Abnormal lab results 01/20/19 01/20/19 01/21/19 Range/Units 17:11 21:27 07:56 POC Glucose 182 H 219 H 176 H (70-105) 01/21/19 Range/Units 11:58 POC Glucose 218 H (70-105)
[2019-01-21] MEDS: ROCEPHIN/NS 2 GM/100 ML 2 GM/100 ML BAG IV SCH (18:02)
[2019-01-21] MEDS: LOVENOX SUB-Q SCH (22:45)
[2019-01-22] MEDS: FLAGYL 500 MG/100 ML 500 MG/100 ML BAG IV SCH ×3 (05:40→22:58)
[2019-01-22 06:10] LABS: Basophils # (Auto) 0.1 K/mm3 (0.0-0.1); Basophils % (Auto) 1.2 % (0.0-1.8); Eosinophils # (Auto) 0.1 K/mm3 (0.0-0.4); Eosinophils % (Auto) 1.7 % (0.0-4.3); Hematocrit 28.5 % (35.5-45.6); Hemoglobin 9.8 gm/dl (11.8-15.2); Lymphocytes # (Auto) 1.8 K/mm3 (1.2-5.4); Lymphocytes % (Auto) 29.5 % (13.4-35.0); Mean Corpuscular HGB Conc 34 % (32-34); Mean Corpuscular Volume 98 fl (84-94); Monocytes # (Auto) 0.7 K/mm3 (0.0-0.8); Monocytes % (Auto) 11.6 % (0.0-7.3); Platelet Count 501 K/mm3 (140-440); Red Blood Count 2.91 M/mm3 (3.65-5.03); Red Cell Distribution Width 13.7 % (13.2-15.2)
[2019-01-22 06:33] LABS: BUN/Creatinine Ratio 13; Blood Urea Nitrogen 9 mg/dL (9-20); Hemolysis Index 5
[2019-01-22] MEDS: HumaLOG SUB-Q SCH ×4 (08:31→22:58)
--- NOTE | 2019-01-22 09:53 | Progress Note ---
Assessment and Plan Cultures: 01/17/19 Blood; no growth 01/18/19 Left foot:E.coli, garcia susceptible 01/18/19 Left foot anaerobic : no growth 01/17/19 MRSA PCR: positive A/P: 58-year old male with a past medical history of DM and hypertension that presents to the ED on 01/17/19 with pain and redness to his left foot over the past 2 days with worsening symptoms with weight bearing. He acknowledges subjective fever and report that his left foot wound opened up and had foul smelling purulent drainage. Admitted with: 1. Left TMA diabetic ulceration with abscess: Left lower extremity CT shows 4 cm abscess in the lateral aspect of the residual mid foot stump subjacent to the skin ulcer. Findings suggesting osteomyelitis. s/p I&D of left foot abscess on 01/18/19. Large amount of purulent fluid and necrotic fat tissue in subcutaneous space. Appreciate cultures that were sent. Dr. Mason following. Left foot wound culture grew E.coli, garcia susceptible. ESR >140. CRP 15.4, Arterial doppler showed monophasic waveforms in the posterior tibial and dorsalis pedis arteries on the left with some mild velocity elevation characteristic distal disease. Left leg angiogram today. 2.. Type 2 Diabetes: recommend tight gylcemic control Recommendations -Continue Ceftriaxone 2gm IV every 24 hours -Continue Flagyl 500mg every 8 hours until 01/23/19 -Anticipate discharge on Ceftriaxone 2 gm IV every 24 hours for 6 weeks ending 03/04/19 -Order placed with case management -Vascular on board -follow-up ID clinic in 2 weeks. Sent to medical appointment scheduler [facility] M: [phone] O:[phone] Subjective Date of service: 01/22/19 Interval history: Patient seen and examined. Reports no generalized pain or weakness. no fevers. Objective - Exam Narrative Exam: Constitutional: Alert. Awake. No acute distress Head, Ears, Nose: Normocephalic, atraumatic. External ears, nose normal Eyes: Conjunctivae/corneas clear. No icterus. No ptosis. Neck: Supple, no meningeal signs Oral: dentition endentulous.. No thrush. Oral mucosa moist Cardiovascular: S1, S2 normal. Respiratory: Good air entry, clear to auscultation bilaterally GI: Soft, non-tender; bowel sounds normal. No peritoneal signs Musculoskeletal: Left TMA diabetic ulceration , +edema.. +dressing c/d/i Skin: same as above Hem/Lymphatic: No palpable cervical or supraclavicular nodes. No lymphangitis Psych: Mood ok. Affect normal Neurological: Awake, alert, oriented. - Constitutional Vitals: Vital Signs Temp Pulse Resp BP Pulse Ox 98.4 F 68 18 146/95 100 01/22/19 05:24 01/22/19 05:24 01/22/19 05:24 01/22/19 05:24 01/22/19 05:24 Temperature -Last 24 Hours Temperature 98.4 F Temperature 98.3 F Temperature 98.4 F Temperature 98.1 F - Labs CBC & Chem 7: 01/22/19 05:52 01/22/19 05:52 Labs: Abnormal lab results 01/21/19 01/21/19 01/21/19 Range/Units 11:58 16:56 21:05 RBC (3.65-5.03) M/mm3 Hgb (11.8-15.2) gm/dl Hct (35.5-45.6) % MCV (84-94) fl MCH (28-32) pg Plt Count (140-440) K/mm3 [place] % (Auto) (0.0-7.3) % Creatinine (0.8-1.5) mg/dL Glucose (75-100) mg/dL POC Glucose 218 H 173 H 207 H (70-105) 01/22/19 01/22/19 01/22/19 Range/Units 05:52 05:52 08:19 RBC 2.91 L (3.65-5.03) M/mm3 Hgb 9.8 L (11.8-15.2) gm/dl Hct 28.5 L (35.5-45.6) % MCV 98 H (84-94) fl MCH 34 H (28-32) pg Plt Count 501 H (140-440) K/mm3 [place] % (Auto) 11.6 H (0.0-7.3) % Creatinine 0.7 L (0.8-1.5) mg/dL Glucose 126 H (75-100) mg/dL POC Glucose 146 H (70-105)
--- NOTE | 2019-01-22 10:15 | Consultation ---
History of Present Illness - Reason for Consult Consult date: 01/22/19 Non-healing Left Foot Ulcer - History of Present Illness HPI: 58yo male with IDDM presented with left foot abscess which underwent incision and drainage at the bedside. Arterial studies performed during hospitalization concerning for arterial insufficiency and vascular consult obtained. Patient underwent left TMA 2 years ago and denies previous arterial intervention. The patient's ambulatory status has been limited due to poorly healing stump. He denies lower extremity claudication prior to this event and does not smoke. PE: NAD, A&Ox3 RRR non-labored respirations palpable femoral pulses bilat left foot dressing clean and dry Plan: Arterial studies reviewed plan for left leg angiogram today Past History Past Medical History: diabetes, hypertension Past Surgical History: Other (Left foot TMA in 2017 - [place]) Social history: single. denies: smoking, alcohol abuse, prescription drug abuse Family history: diabetes, hypertension Medications and Allergies Allergies Allergy/AdvReac Type Severity Reaction Status Date / Time No Known Allergies Allergy Verified 12/21/18 18:50 Home Medications Medication Instructions Recorded Confirmed Last Taken Type HumaLOG 6 - 12 units SC TID 12/24/18 01/17/19 01/17/19 History Metoprolol Tartrate 50 mg PO DAILY 12/24/18 01/17/19 01/17/19 History Folic Acid [Folvite] 1 mg PO QDAY #30 tablet 12/26/18 01/17/19 01/17/19 Rx Insulin NPH/Regular [NovoLIN 70/30] 28 unit SUB-Q BIDDIAB 30 Days 12/26/18 01/17/19 01/16/19 Rx units Lisinopril [Zestril TAB] 2.5 mg PO QDAY #30 tablet 12/26/18 01/17/19 01/17/19 Rx Active Meds: Active Medications Acetaminophen (Tylenol) 650 mg PO Q4H PRN PRN Reason: Pain MILD(1-3)/Fever >100.5/VIVAS Albuterol (Proventil) 2.5 mg IH Q4HRT PRN PRN Reason: Shortness Of Breath Amlodipine Besylate (Norvasc) 10 mg PO DAILY JOSELINE Last Admin: 01/21/19 12:06 Dose: 10 mg Documented by: Dextrose (D50w (25gm) Syringe) 50 ml IV PRN PRN PRN Reason: Hypoglycemia Enoxaparin Sodium (Lovenox) 40 mg SUB-Q QDAY@2200 [facility] Last Admin: 01/21/19 22:45 Dose: 40 mg Documented by: Folic Acid (Folvite) 1 mg PO QDAY [facility] Last Admin: 01/21/19 12:04 Dose: 1 mg Documented by: Sodium Chloride (Nacl 0.45% 1000 Ml) 1,000 mls @ 75 mls/hr IV DIRECT [facility] Last Admin: 01/21/19 22:45 Dose: 75 mls/hr Documented by: Metronidazole (Flagyl 500 Mg/100 Ml) 500 mg in 100 mls @ 100 mls/hr IV Q8HR [facility]; Protocol Last Admin: 01/22/19 05:40 Dose: 100 mls/hr Documented by: Ceftriaxone Sodium (Rocephin/Ns 2 Gm/100 Ml) 2 gm in 100 mls @ 200 mls/hr IV Q24HR [facility]; Protocol Last Admin: 01/21/19 18:02 Dose: 200 mls/hr Documented by: Insulin Human Isoph/Insulin Regular (Humulin 70/30) 20 unit SUB-Q BIDDIAB [facility] Last Admin: 01/22/19 08:32 Dose: Not Given Documented by: Insulin Human Lispro (Humalog) 0 unit SUB-Q ACHS [facility]; Protocol Last Admin: 01/22/19 08:31 Dose: Not Given Documented by: Lisinopril (Zestril) 2.5 mg PO QDAY [facility] Last Admin: 01/21/19 12:04 Dose: 2.5 mg Documented by: Metoprolol Tartrate (Lopressor) 50 mg PO DAILY [facility] Last Admin: 01/21/19 12:06 Dose: 50 mg Documented by: Ondansetron HCl (Zofran) 4 mg IV Q8H PRN PRN Reason: Nausea And Vomiting Oxycodone/Acetaminophen (Percocet 5/325) 1 tab PO Q6H PRN PRN Reason: Pain, Moderate (4-6) Last Admin: 01/21/19 12:30 Dose: 1 tab Documented by: Sodium Chloride (Sodium Chloride Flush Syringe 10 Ml) 10 ml IV BID [facility] Last Admin: 01/21/19 22:45 Dose: 10 ml Documented by: Sodium Chloride (Sodium Chloride Flush Syringe 10 Ml) 10 ml IV PRN PRN PRN Reason: LINE FLUSH Exam - Constitutional Vitals: Temp Pulse Resp BP Pulse Ox 98.4 F 68 18 146/95 100 01/22/19 05:24 01/22/19 05:24 01/22/19 05:24 01/22/19 05:24 01/22/19 05:24 Results - Labs CBC & Chem 7: 01/22/19 05:52 01/22/19 05:52 Labs: Abnormal lab results 01/21/19 01/21/19 01/21/19 Range/Units 11:58 16:56 21:05 RBC (3.65-5.03) M/mm3 Hgb (11.8-15.2) gm/dl Hct (35.5-45.6) % MCV (84-94) fl MCH (28-32) pg Plt Count (140-440) K/mm3 [place] % (Auto) (0.0-7.3) % Creatinine (0.8-1.5) mg/dL Glucose (75-100) mg/dL POC Glucose 218 H 173 H 207 H (70-105) 01/22/19 01/22/19 01/22/19 Range/Units 05:52 05:52 08:19 RBC 2.91 L (3.65-5.03) M/mm3 Hgb 9.8 L (11.8-15.2) gm/dl Hct 28.5 L (35.5-45.6) % MCV 98 H (84-94) fl MCH 34 H (28-32) pg Plt Count 501 H (140-440) K/mm3 [place] % (Auto) 11.6 H (0.0-7.3) % Creatinine 0.7 L (0.8-1.5) mg/dL Glucose 126 H (75-100) mg/dL POC Glucose 146 H (70-105)
[2019-01-22] MEDS: ROCEPHIN/NS 2 GM/100 ML 2 GM/100 ML BAG IV SCH ×2 (10:46→14:57)
[2019-01-22] MEDS: NORVASC PO SCH ×2 (10:46→14:53)
[2019-01-22] MEDS: ZESTRIL PO SCH ×2 (10:46→14:53)
[2019-01-22] MEDS: FOLVITE PO SCH ×2 (10:46→14:53)
[2019-01-22] MEDS: SODIUM CHLORIDE FLUSH SYRINGE 10 ML IV SCH ×2 (10:46→23:00)
[2019-01-22] MEDS: LOPRESSOR PO SCH ×2 (10:46→14:52)
[2019-01-22] MEDS ORDERED: HEPARIN/NS 5000 UNIT/500ML(CATH LAB) 500 ML IR ONE ×2 (10:47→11:23)
[2019-01-22] MEDS ORDERED: XYLOCAINE 2% INFILTRATI ONE (10:48)
[2019-01-22] MEDS ORDERED: SUBLIMAZE ONE (10:49)
[2019-01-22] MEDS ORDERED: NACL 0.9% 500 ML 500 ML ONE (10:49)
[2019-01-22] MEDS ORDERED: VERSED ONE (10:49)
--- NOTE | 2019-01-22 11:50 | Post Operative Note ---
Pre-op diagnosis: Left Lower Extremity Critical Limb Ischemia Post-op diagnosis: same Findings: Aorto-iliac patent bilaterally, left common femoral, superficial femoral, profunda femoral, popliteal, TP trunk and origin of the AT all widely patent, with 2 vessel runoff via the AT and PT into the foot with intact plantar arc Procedure: 1. Diagnostic Aortogram 2. Left Lower Extremity Angiogram with 3rd Order Catheter Placement 3. Right Femoral Arterial Access using Ultrasound Guidance 4. Monitored Conscious Sedation Anesthesia: MAC, local Surgeon: SONIA RODAS Estimated blood loss: minimal Pathology: none Condition: stable
[2019-01-22] MEDS: PERCOCET 5/325 PO PRN (13:16)
--- NOTE | 2019-01-22 16:48 | Progress Note ---
Assessment and Plan /Cellulites and abscess of left foot with SIRS Continue IV antibiotic therapy, surgery team consulted, wound care consulted, s/p I and D, wound culture growing gram-negative rods - Escherichia coli CT of the left foot showed patient also might have osteomyelitis of the distal aspect of the cuboid Consulted ID for further antibiotic recommendations Per ID: -Discontinued Vancomycin, Discontinue Cefepime Start Ceftriaxone 2gm IV every 24 hours -Continue Flagyl 500mg every 8 hours until 01/23/19 -Anticipate discharge on Ceftriaxone 2 gm IV every 24 hours for 6 weeks ending 03/04/19 -Order placed with case management /Peripheral vascular disease, continue aspirin and statin Consulted vascular - s/p angiogram today / Diabetes mellitus type II, uncontrolled ADA diet, insulin, accu check, hypoglycemia protocol / Hyponatremia likely from hyperglycemia IVF resuscitation therapy, repeat bmp /Lactic acidosis, likely from dehydration and SIRS treat cellulitis, IV antibiotic therapy, IV fluid /Status post left foot TMA amputation, cont supportive care /DVT prophylaxis SCD to BLE while in bed, prophylactic lovenox Brief History: 58yo M with diabetes, s/p L TMA (2016) presents with a one-week history of left foot swelling at the amputation site. Patient found to have left foot infection and Gen. surgery was consulted for evaluation and treatment. Radiological data: Foot x-ray: There is been previous amputation of the distal foot near the level of the cuneiform bones. Osteopenia is noted. Soft tissue gas is noted in the distal soft tissues. There also appears to be a moderate size area of ulceration in the plantar surface of the distal foot which contains packing material. This probably represents a cellulitis. No convincing bony destruction is identified to suggest osteomyelitis on x-ray. If further evaluation is needed, MRI with contrast would provide the most information. He is a murmur or Left foot CT: 1. Approximately 4 cm abscess in the lateral aspect of the residual mid foot stump subjacent to the skin ulcer. 2. Findings suggesting osteomyelitis in the distal aspect of the cuboid. Hospitalist Physical exam: GENERAL: well-developed and well-nourished -[place]ongolian male lying on bed appeared to be in no discomfort. HEENT: Normocephalic. Atraumatic. No conjunctival congestion or icterus. Patient has moist mucous membranes. NECK: Supple. Trachea midline. CHEST/LUNGS: Clear to auscultated bilaterally, breathing nonlabored. No wheezes crackles or rhonchi. HEART/CARDIOVASCULAR: Regular in rate and rhythm. S1 and S2 positive. ABDOMEN: Abdomen is soft, nontender. Patient has normal bowel sounds. SKIN: There is no rash. Warm and dry. NEURO: No focal motor deficit. Follows command. MUSCULOSKELETAL: No joint effusion or tenderness. EXTRIMITY: edema, left foot wound dressing PSYCH: Cooperative. Subjective Date of service: 01/22/19 Interval history: Patient seen and examined. Medical records and medication list reviewed. No acute event overnight noted by the RN. Patient denies any chest pain or difficulty breathing. will need IV antibiotics on discharge, ordered for a PICC line Positive MRSA on nares, placed on contact isolation Discussed plan of care at bedside with patient. discharge pending on home iv abx arrangement Objective - Constitutional Vitals: Vital Signs - 12hr 01/22/19 01/22/19 01/22/19 05:24 12:43 14:52 Temperature 98.4 F 98.9 F Pulse Rate 68 79 Respiratory 18 20 Rate Blood Pressure 146/95 170/97 170/97 O2 Sat by Pulse 100 100 Oximetry 01/22/19 14:53 Temperature Pulse Rate Respiratory Rate Blood Pressure 170/97 O2 Sat by Pulse Oximetry - Labs CBC & Chem 7: 01/22/19 05:52 01/22/19 05:52 Labs: Abnormal lab results 01/21/19 01/21/19 01/22/19 Range/Units 16:56 21:05 05:52 RBC 2.91 L (3.65-5.03) M/mm3 Hgb 9.8 L (11.8-15.2) gm/dl Hct 28.5 L (35.5-45.6) % MCV 98 H (84-94) fl MCH 34 H (28-32) pg Plt Count 501 H (140-440) K/mm3 [place] % (Auto) 11.6 H (0.0-7.3) % Creatinine (0.8-1.5) mg/dL Glucose (75-100) mg/dL POC Glucose 173 H 207 H (70-105) 01/22/19 01/22/19 01/22/19 Range/Units 05:52 08: 12:49 RBC (3.65-5.03) M/mm3 Hgb (11.8-15.2) gm/dl Hct (35.5-45.6) % MCV (84-94) fl MCH (28-32) pg Plt Count (140-440) K/mm3 [place] % (Auto) (0.0-7.3) % Creatinine 0.7 L (0.8-1.5) mg/dL Glucose 126 H (75-100) mg/dL POC Glucose 146 H 176 H (70-105)
[2019-01-22] MEDS: NACL 0.45% 1000 ML 1,000 ML IV SCH (17:20)
[2019-01-22] MEDS: LOVENOX SUB-Q SCH (22:59)
[2019-01-23] MEDS: NACL 0.45% 1000 ML 1,000 ML IV SCH ×2 (06:15→19:58)
[2019-01-23] MEDS: FLAGYL 500 MG/100 ML 500 MG/100 ML BAG IV SCH (06:15)
[2019-01-23] MEDS: HumaLOG SUB-Q SCH ×4 (07:56→22:30)
[2019-01-23] MEDS: ROCEPHIN/NS 2 GM/100 ML 2 GM/100 ML BAG IV SCH (09:14)
[2019-01-23] MEDS: LOPRESSOR PO SCH (09:14)
[2019-01-23] MEDS: NORVASC PO SCH (09:15)
[2019-01-23] MEDS: FOLVITE PO SCH (09:15)
[2019-01-23] MEDS: ZESTRIL PO SCH (09:15)
[2019-01-23] MEDS: SODIUM CHLORIDE FLUSH SYRINGE 10 ML IV SCH ×2 (09:17→22:31)
--- NOTE | 2019-01-23 09:38 | Progress Note ---
Assessment and Plan Cultures: 01/17/19 Blood; no growth 01/18/19 Left foot:E.coli, garcia susceptible 01/18/19 Left foot anaerobic : no growth 01/17/19 MRSA PCR: positive A/P: 58-year old male with a past medical history of DM and hypertension that presents to the ED on 01/17/19 with pain and redness to his left foot over the past 2 days with worsening symptoms with weight bearing. He acknowledges subjective fever and report that his left foot wound opened up and had foul smelling purulent drainage. Admitted with: 1. Left TMA diabetic ulceration with abscess: Left lower extremity CT shows 4 cm abscess in the lateral aspect of the residual mid foot stump subjacent to the skin ulcer. Findings suggesting osteomyelitis. s/p I&D of left foot abscess on 01/18/19. Large amount of purulent fluid and necrotic fat tissue in subcutaneous space. Appreciate cultures that were sent. Dr. Mason following. Left foot wound culture grew E.coli, garcia susceptible. ESR >140. CRP 15.4, Arterial doppler showed monophasic waveforms in the posterior tibial and dorsalis pedis arteries on the left with some mild velocity elevation characteristic distal disease. Left leg angiogram today. 2.. Type 2 Diabetes: recommend tight gylcemic control Recommendations -Continue Ceftriaxone 2gm IV every 24 hours -Discontinue Flagyl -Anticipate discharge on Ceftriaxone 2 gm IV every 24 hours for 6 weeks ending 03/04/19 -Order placed with case management -Vascular on board -follow-up ID clinic in 2 weeks. Sent to planner/scheduler Clinically stable. ID is signing off. Please call for questions. Mimi Bearden NP [facility] M: [phone] O:[phone] Subjective Date of service: 01/23/19 Interval history: Patient seen and examined. Reports no generalized pain or weakness. no fevers. Objective - Exam Narrative Exam: Constitutional: Alert. Awake. No acute distress Head, Ears, Nose: Normocephalic, atraumatic. External ears, nose normal Eyes: Conjunctivae/corneas clear. No icterus. No ptosis. Neck: Supple, no meningeal signs Oral: dentition endentulous.. No thrush. Oral mucosa moist Cardiovascular: S1, S2 normal. Respiratory: Good air entry, clear to auscultation bilaterally GI: Soft, non-tender; bowel sounds normal. No peritoneal signs Musculoskeletal: Left TMA diabetic ulceration , +edema.. +dressing c/d/i Skin: same as above Hem/Lymphatic: No palpable cervical or supraclavicular nodes. No lymphangitis Psych: agitated Neurological: Awake, alert, oriented. - Constitutional Vitals: Vital Signs Temp Pulse Resp BP Pulse Ox 98.4 F 70 19 136/84 99 01/23/19 06:00 01/23/19 09:15 01/23/19 06:00 01/23/19 09:15 01/23/19 06:00 Temperature -Last 24 Hours Temperature 98.4 F Temperature 99.0 F Temperature 98.6 F Temperature 98.9 F - Labs CBC & Chem 7: 01/22/19 05:52 01/22/19 05:52 Labs: Abnormal lab results 01/22/19 01/22/19 01/22/19 Range/Units 12:49 16:56 21:52 POC Glucose 176 H 297 H 337 H (70-105) 01/23/19 Range/Units 08:03 POC Glucose 133 H (70-105)
--- NOTE | 2019-01-23 13:32 | Progress Note ---
Assessment and Plan /Cellulites and abscess of left foot with SIRS Continue IV antibiotic therapy, surgery team consulted, wound care consulted, s/p I and D, wound culture growing gram-negative rods - Escherichia coli CT of the left foot showed patient also might have osteomyelitis of the distal aspect of the cuboid Consulted ID for further antibiotic recommendations Per ID: -Discontinued Vancomycin, Discontinue Cefepime Start Ceftriaxone 2gm IV every 24 hours -Continue Flagyl 500mg every 8 hours until 01/23/19 -Anticipate discharge on Ceftriaxone 2 gm IV every 24 hours for 6 weeks ending 03/04/19 -Order placed with case management /Peripheral vascular disease, continue aspirin and statin Consulted vascular - s/p angiogram today / Diabetes mellitus type II, uncontrolled ADA diet, insulin, accu check, hypoglycemia protocol / Hyponatremia likely from hyperglycemia IVF resuscitation therapy, repeat bmp /Lactic acidosis, likely from dehydration and SIRS treat cellulites, IV antibiotic therapy, IV fluid /Status post left foot TMA amputation, cont supportive care /DVT prophylaxis SCD to BLE while in bed, prophylactic lovenox Disposition: Discharge pending on home IV antibiotics set up- patient is unfunded Brief History: 58yo M with diabetes, s/p L TMA (2017) presents with a one-week history of left foot swelling at the amputation site. Patient found to have left foot infection and Gen. surgery was consulted for evaluation and treatment. Radiological data: Foot x-ray: There is been previous amputation of the distal foot near the level of the cuneiform bones. Osteopenia is noted. Soft tissue gas is noted in the distal soft tissues. There also appears to be a moderate size area of ulceration in the plantar surface of the distal foot which contains packing material. This p robably represents a cellulitis. No convincing bony destruction is identified to suggest osteomyelitis on x-ray. If further evaluation is needed, MRI with contrast would provide the most information. He is a murmur or Left foot CT: 1. Approximately 4 cm abscess in the lateral aspect of the residual mid foot stump subjacent to the skin ulcer. 2. Findings suggesting osteomyelitis in the distal aspect of the cuboid. Hospitalist Physical exam: GENERAL: well-developed and well-nourished -[place] male lying on bed appeared to be in no discomfort. HEENT: Normocephalic. Atraumatic. No conjunctival congestion or icterus. Patient has moist mucous membranes. NECK: Supple. Trachea midline. CHEST/LUNGS: Clear to auscultated bilaterally, breathing nonlabored. No wheezes crackles or rhonchi. HEART/CARDIOVASCULAR: Regular in rate and rhythm. S1 and S2 positive. ABDOMEN: Abdomen is soft, nontender. Patient has normal bowel sounds. SKIN: There is no rash. Warm and dry. NEURO: No focal motor deficit. Follows command. MUSCULOSKELETAL: No joint effusion or tenderness. EXTRIMITY: edema, left foot wound dressing PSYCH: Cooperative. Subjective Date of service: 01/23/19 Interval history: Patient seen and examined. Medical records and medication list reviewed. No acute event overnight noted by the RN. Patient denies any chest pain or difficulty breathing. will need IV antibiotics on discharge, ordered for a PICC line Positive MRSA on nares, placed on contact isolation Discussed plan of care at bedside with patient. discharge pending on home iv abx arrangement Objective - Constitutional Vitals: Vital Signs - 12hr 01/23/19 01/23/19 01/23/19 06:00 09:12 09:14 Temperature 98.4 F Pulse Rate 68 70 Respiratory 19 Rate Blood Pressure 120/79 136/84 136/84 O2 Sat by Pulse 99 Oximetry 01/23/19 01/23/19 09:15 12:48 Temperature 99.0 F Pulse Rate 70 67 Respiratory 18 Rate Blood Pressure 136/84 142/79 O2 Sat by Pulse 99 Oximetry - Labs CBC & Chem 7: 01/22/19 05:52 01/22/19 05:52 Labs: Abnormal lab results 01/22/19 01/22/19 01/23/19 Range/Units 16:56 21:52 08:03 POC Glucose 297 H 337 H 133 H (70-105) 01/23/19 Range/Units 11:48 POC Glucose 211 H (70-105)
[2019-01-23] MEDS: LOVENOX SUB-Q SCH (22:32)
--- NOTE | 2019-01-24 04:42 | Operative Report ---
STAFF SURGEON: Baudilio Torres MD PREOPERATIVE DIAGNOSIS: Left lower extremity critical limb ischemia. POSTOPERATIVE DIAGNOSIS: Left lower extremity critical limb ischemia. PROCEDURE PERFORMED: 1. Right femoral arterial access using ultrasound guidance. 2. Diagnostic aortogram. 3. Left lower extremity angiogram with third order catheter placement. 4. Monitored conscious sedation. COMPLICATIONS: None. ESTIMATED BLOOD LOSS: Less than 10 mL. ANESTHESIA: Local MAC. ANGIOGRAPHIC FINDINGS: Aortoiliac system was patent bilaterally. The left common femoral, superficial femoral, profunda femoral, popliteal, tibioperoneal trunk and origin of the anterior tibial artery are all widely patent. There was a 2-vessel runoff via the anterior tibial and posterior tibial arteries into the foot with an intact plantar arch. INDICATION FOR PROCEDURE: This is a 58-year-old gentleman with insulin-dependent diabetes mellitus who presented with a left foot abscess for which he underwent incision and drainage at the bedside. The patient had arterial studies performed that was concerning for arterial insufficiency, and therefore, a vascular consultation was obtained. The patient underwent a left TMA 2 years ago, which he states he has had issues with healing. It was felt that the patient would benefit from diagnostic imaging to evaluate the patient's anatomy. The patient was explained the risks, benefits and alternatives of the procedure, expressed understanding and wished to proceed. DESCRIPTION OF THE PROCEDURE: After appropriate consent was obtained, the patient was brought back to the chemical laboratory scientist, placed on table in supine position. Both groins were prepped and draped in the usual sterile fashion with ChloraPrep. Appropriate timeout was performed indicating the correct patient, procedure, and site of procedure. We then began intervention by obtaining percutaneous access under ultrasound guidance of the right common femoral artery using micropuncture technique to obtain access, needle was extended for a micropuncture sheath. Using Seldinger technique, this was then upsized to a 5-[place] sheath over a short J wire. We then proceeded to place a Glidewire into the infrarenal aorta and an Omniflush catheter was placed over this Glidewire, the wire was removed and diagnostic aortogram was performed, which demonstrated the findings noted above. With these findings, we then proceeded to cannulate the left iliac system with a combination Omniflush catheter and a Glidewire. Omniflush catheter was then advanced into the distal external iliac artery and then a series of diagnostic imaging of the left lower extremity were performed, which demonstrated the findings noted above. With this, the Omniflush catheter was removed over the Glidewire and then proceeded to deploy Mynx closure device through the 5-[place]i sheath and was deployed adequately. Digital compression was then held out to remove the sheath for further hemostasis. Once we were satisfied with hemostasis, appropriate dressing was placed. The patient tolerated the procedure well, emerged from the conscious sedation and was sent to recovery in stable condition. JOB# [id number] N/PAWAN
[2019-01-24] MEDS: HumaLOG SUB-Q SCH ×3 (09:18→18:07)
[2019-01-24] MEDS: NACL 0.45% 1000 ML 1,000 ML IV SCH (09:20)
[2019-01-24] MEDS: ROCEPHIN/NS 2 GM/100 ML 2 GM/100 ML BAG IV SCH (09:20)
[2019-01-24] MEDS: FOLVITE PO SCH (11:38)
[2019-01-24] MEDS: ZESTRIL PO SCH (11:47)
[2019-01-24] MEDS: NORVASC PO SCH (11:49)
[2019-01-24] MEDS: LOPRESSOR PO SCH (11:50)
[2019-01-24] MEDS: SODIUM CHLORIDE FLUSH SYRINGE 10 ML IV SCH (11:54)
--- NOTE | 2019-01-24 13:40 | Progress Note ---
Assessment and Plan Cultures: 01/17/19 Blood; no growth 01/18/19 Left foot:E.coli, garcia susceptible 01/18/19 Left foot anaerobic : no growth 01/17/19 MRSA PCR: positive A/P: 58-year old male with a past medical history of DM and hypertension that presents to the ED on 01/17/19 with pain and redness to his left foot over the past 2 days with worsening symptoms with weight bearing. He acknowledges subjective fever and report that his left foot wound opened up and had foul smelling purulent drainage. Admitted with: 1. Left TMA diabetic ulceration with abscess: Left lower extremity CT shows 4 cm abscess in the lateral aspect of the residual mid foot stump subjacent to the skin ulcer. Findings suggesting osteomyelitis. s/p I&D of left foot abscess on 01/18/19. Large amount of purulent fluid and necrotic fat tissue in subcutaneous space. Appreciate cultures that were sent. Dr. Mason following. Left foot wound culture grew E.coli, garcia susceptible. ESR >140. CRP 15.4, Arterial doppler showed monophasic waveforms in the posterior tibial and dorsalis pedis arteries on the left with some mild velocity elevation characteristic distal disease. Left leg angiogram today. 2.. Type 2 Diabetes: recommend tight gylcemic control Recommendations -Continue Ceftriaxone 2gm IV every 24 hours -Anticipate discharge on Ceftriaxone 2 gm IV every 24 hours for 6 weeks ending 03/04/19 -Order placed with case management -follow-up ID clinic 02-14-19 (sent to scenic artist) [facility] M: [phone] O:[phone] Subjective Interval history: Patient seen and examined. Reports no generalized pain or weakness. no fevers. Objective - Exam Narrative Exam: Constitutional: Alert. Awake. No acute distress Head, Ears, Nose: Normocephalic, atraumatic. External ears, nose normal Eyes: Conjunctivae/corneas clear. No icterus. No ptosis. Neck: Supple, no meningeal signs Oral: dentition endentulous.. No thrush. Oral mucosa moist Cardiovascular: S1, S2 normal. Respiratory: Good air entry, clear to auscultation bilaterally GI: Soft, non-tender; bowel sounds normal. No peritoneal signs Musculoskeletal: Left TMA diabetic ulceration , +edema.. +dressing c/d/i Skin: same as above Hem/Lymphatic: No palpable cervical or supraclavicular nodes. No lymphangitis Psych: agitated Neurological: Awake, alert, oriented. - Constitutional Vitals: Vital Signs Temp Pulse Resp BP Pulse Ox 98.4 F 66 18 135/89 99 01/24/19 05:34 01/24/19 11:50 01/24/19 05:34 01/24/19 11:50 01/24/19 05:34 Temperature -Last 24 Hours Temperature 98.4 F Temperature 98.0 F Temperature 98.0 F - Labs CBC & Chem 7: 01/22/19 05:52 01/22/19 05:52 Labs: Abnormal lab results 01/23/19 01/23/19 01/24/19 Range/Units 16:37 21:53 07:39 POC Glucose 253 H 170 H 164 H (70-105) 01/24/19 Range/Units 11:13 POC Glucose 243 H (70-105)
--- NOTE | 2019-01-24 14:27 | Discharge Summary ---
Providers - Providers Date of Admission: 01/17/19 16:49 Date of discharge: 01/25/19 Attending physician: HANSA SHINE 01/18/19 07:15 Consult to Wound/ET Nurse [CONS] Routine Reason For Exam: wound eval 01/18/19 16:45 Consult to Physician [CONS] Routine Comment: Consulting Provider: RAN CHAUDHARY Physician Instructions: Reason For Exam: possible osteomylitis 01/19/19 14:14 PICC Line Insertion [Consult to PICC Line RN] [CONS] Routine Reason For Exam: OPAT Type Line:: PICC 01/21/19 15:09 Consult to Physician [CONS] Routine Comment: Consulting Provider: MARY ARMENDRAIZ Physician Instructions: Reason For Exam: PVD with nonhealing left foot amputation site 01/21/19 15:15 Consult to Case Management [CONS] Routine Services Needed at Discharge: Other Notified:: ricky Additional Physician Instructions: [facility] M [phone] O [phone] F [phone] OUTPATIENT PARENTERAL ANTIBIOTIC THERAPY ORDERS Diagnoses:Left TMA diabetic ulceration w ith abscess. CT findings suggestive of osteomyelitis Antimicrobial administration: - Anticipate discharge on Ceftriaxone 2 gm IV every 24 hours for 6 weeks ending 03/04/19. Remove PICC line after last dose unless otherwise instructed. Lines: PICC Lab monitoring: CBC, BUN, Creatinine, ALT, AST, ESR, CRP once a week preferly on Tuesday morning. Please fax results to [phone] and call [phone] for critical lab results. Mimi Bearden NP/MD [facility] Date: 01/21/19 [facility] Condition: Critical Pertinent studies: Chest x-ray, lower extremity arterial Doppler, lower extremity CT, foot x-ray Hospital course: 58yo M with diabetes, s/p L TMA (2017) presents with a one-week history of left foot swelling at the amputation site. Patient found to have left foot infection and Gen. surgery was consulted for evaluation and treatment. Radiological data: Foot x-ray: There is been previous amputation of the distal foot near the level of the cuneiform bones. Osteopenia is noted. Soft tissue gas is noted in the distal soft tissues. There also appears to be a moderate size area of ulceration in the plantar surface of the distal foot which contains packing material. This probably represents a cellulitis. No convincing bony destruction is identified to suggest osteomyelitis on x-ray. If further evaluation is needed, MRI with con trast would provide the most information. He is a murmur or Left foot CT: 1. Approximately 4 cm abscess in the lateral aspect of the residual mid foot stump subjacent to the skin ulcer. 2. Findings suggesting osteomyelitis in the distal aspect of the cuboid. Discharge diagnosis and management: /Cellulites and abscess of left foot with SIRS Continue IV antibiotic therapy, surgery team consulted, wound care consulted, s/p I and D, wound culture growing gram-negative rods - Escherichia coli CT of the left foot showed patient also might have osteomyelitis of the distal aspect of the cuboid Consulted ID for further antibiotic recommendations Per ID: -Completed Flagyl 500mg every 8 hours until 01/23/19 -discharge on Ceftriaxone 2 gm IV every 24 hours for 6 weeks ending 03/04/19 -Order placed with case management /Peripheral vascular disease, continue aspirin and statin Consulted vascular - s/p angiogram showed no need for any further intervention / Diabetes mellitus type II, uncontrolled ADA diet, insulin, accu check, hypoglycemia protocol / Hyponatremia likely from hyperglycemia IVF resuscitation therapy, repeat bmp /Lactic acidosis, likely from dehydration and SIRS treat cellulites, IV antibiotic therapy, IV fluid /Status post left foot TMA amputation, cont supportive care /DVT prophylaxis SCD to BLE while in bed, prophylactic lovenox Disposition: Discharge on home IV antibiotics set up- patient is unfunded Hospitalist Physical exam: GENERAL: well-developed and well-nourished -[place] male lying on bed appeared to be in no discomfort. HEENT: Normocephalic. Atraumatic. No conjunctival congestion or icterus. Patient has moist mucous membranes. NECK: Supple. Trachea midline. CHEST/LUNGS: Clear to auscultated bilaterally, breathing nonlabored. No wheezes crackles or rhonchi. HEART/CARDIOVASCULAR: Regular in rate and rhythm. S1 and S2 positive. ABDOMEN: Abdomen is soft, nontender. Patient has normal bowel sounds. SKIN: There is no rash. Warm and dry. NEURO: No focal motor deficit. Follows command. MUSCULOSKELETAL: No joint effusion or tenderness. EXTRIMITY: edema, left foot wound dressing PSYCH: Cooperative. is Disposition: [id number]/[place]-06 HOME [facility] Time spent for discharge: 34 minutes Core Measure Documentation - Palliative Care Palliative Care/ Comfort Measures: Not Applicable - Core Measures Any of the following diagnoses?: none Exam - Constitutional Vitals: Temp Pulse Resp BP Pulse Ox 98.4 F 66 18 135/89 99 01/24/19 05:34 01/24/19 11:50 01/24/19 05:34 01/24/19 11:50 01/24/19 05:34 Plan Activity: fall precautions Weight Bearing Status: Partial Weight Bearing Diet: diabetic Wound: per wound nurse instructions (in addition) Special Instructions: record blood sugar diary (he is) Durable Medical Equipment Needed Upon Discharge: Crutches Additional Instructions: Ceftriaxone 2 gm IV every 24 hours for 6 weeks ending 03/04/19 Follow up with: PRIMARY CARE, [Referring] - 3-5 Days Prescriptions: Folic Acid [Folvite] 1 mg PO QDAY #30 tablet Metoprolol [Lopressor TAB] 50 mg PO DAILY #30 tablet amLODIPine [Norvasc] 10 mg PO DAILY #30 tablet Insulin NPH/Regular [NovoLIN 70/30] 28 unit SUB-Q BIDDIAB 30 Days #10 ml oxyCODONE /ACETAMINOPHEN [Percocet 5/325 mg] 1 tab PO Q6H PRN #14 tablet PRN Reason: Pain, Moderate (4-6) Lisinopril [Zestril TAB] 2.5 mg PO QDAY #30 tablet Other Discharge Orders: Glucometer (Amb) Location: None Selected Glucometer supplies[Amb] Location: None Selected
--- NOTE | 2019-01-24 14:57 | Progress Note ---
Subjective Date of service: 01/24/19 Interval history: Patient doing well. right groin access site soft. patient with intact perfusion to the left foot and should heal with aggressive wound care. no further work-up/intervention from vascular standpoint. no follow-up required. Objective - Constitutional Vitals: Vital Signs - 12hr 01/24/19 01/24/19 01/24/19 05:34 11:47 11:49 Temperature 98.4 F Pulse Rate 68 6 L 66 Respiratory 18 Rate Blood Pressure 123/70 138/85 135/89 O2 Sat by Pulse 99 Oximetry 01/24/19 11:50 Temperature Pulse Rate 66 Respiratory Rate Blood Pressure 135/89 O2 Sat by Pulse Oximetry - Labs CBC & Chem 7: 01/22/19 05:52 01/22/19 05:52 Labs: Abnormal lab results 01/23/19 01/23/19 01/24/19 Range/Units 16:37 21:53 07:39 POC Glucose 253 H 170 H 164 H (70-105) 01/24/19 Range/Units 11:13 POC Glucose 243 H (70-105) Medications & Allergies - Medications Allergies/Adverse Reactions: Allergies No Known Allergies Allergy (Verified 12/21/18 18:50) Home Medications: Home Medications Medication Instructions Recorded Confirmed Last Taken Type Folic Acid [Folvite] 1 mg PO QDAY #30 tablet 01/24/19 Unknown Rx Insulin NPH/Regular [NovoLIN 70/30] 28 unit SUB-Q BIDDIAB 30 Days #10 01/24/19 Unknown Rx ml Lisinopril [Zestril TAB] 2.5 mg PO QDAY #30 tablet 01/24/19 Unknown Rx Metoprolol [Lopressor TAB] 50 mg PO DAILY #30 tablet 01/24/19 Unknown Rx amLODIPine [Norvasc] 10 mg PO DAILY #30 tablet 01/24/19 Unknown Rx oxyCODONE /ACETAMINOPHEN [Percocet 1 tab PO Q6H PRN #14 tablet 01/24/19 Unknown Rx 5/325 mg] Active Medications: Generic Name Dose Route Start Last Admin Trade Name Freq PRN Reason Stop Dose Admin Acetaminophen 650 mg 01/17/19 16:49 Tylenol PO Q4H PRN Pain MILD(1-3)/Fever >100.5/VIVAS Albuterol 2.5 mg 01/17/19 16:49 Proventil IH Q4HRT PRN Shortness Of Breath Amlodipine Besylate 10 mg 01/18/19 10:00 01/24/19 11:49 Norvasc PO 10 mg DAILY JOSELINE Administration Dextrose 50 ml 01/17/19 16:53 D50w (25gm) Syringe IV PRN PRN Hypoglycemia Enoxaparin Sodium 40 mg 01/17/19 22:00 01/23/19 22:32 Lovenox SUB-Q 40 mg QDAY@2200 JOSELINE Administration Folic Acid 1 mg 01/18/19 10:00 01/24/19 11:38 Folvite PO 1 mg QDAY JOSELINE Administration Sodium Chloride 1,000 mls @ 75 mls/hr 01/17/19 17:00 01/24/19 09:20 Nacl 0.45% 1000 Ml IV 75 mls/hr DIRECT JOSELINE Administration Ceftriaxone Sodium 2 gm in 100 mls @ 200 mls/hr 01/21/19 16:00 01/24/19 09:20 Rocephin/Ns 2 Gm/100 Ml IV 03/04/19 10:29 200 mls/hr Q24HR JOSELINE Administration Protocol Insulin Human Isoph/Insulin Regular 25 unit 01/23/19 08:00 01/24/19 09:19 Humulin 70/30 SUB-Q 25 unit BIDDIAB JOSELINE Administration Insulin Human Lispro 0 unit 01/20/19 23:00 01/24/19 12:54 Humalog SUB-Q 4 unit ACHS JOSELINE Administration Protocol Lisinopril 2.5 mg 01/18/19 10:00 01/24/19 11:47 Zestril PO 2.5 mg QDAY JOSELINE Administration Metoprolol Tartrate 50 mg 01/18/19 10:00 01/24/19 11:50 Lopressor PO 50 mg DAILY JOSELINE Administration Ondansetron HCl 4 mg 01/17/19 16:49 Zofran IV Q8H PRN Nausea And Vomiting Oxycodone/Acetaminophen 1 tab 01/17/19 16:49 01/22/19 13:16 Percocet 5/325 PO 1 tab Q6H PRN Administration Pain, Moderate (4-6) Sodium Chloride 10 ml 01/17/19 22:00 01/24/19 11:54 Sodium Chloride Flush Syringe 10 Ml IV 10 ml BID JOSELINE Administration Sodium Chloride 10 ml 01/17/19 16:49 Sodium Chloride Flush Syringe 10 Ml IV PRN PRN LINE FLUSH
[2019-01-25] MEDS: LOVENOX SUB-Q SCH (00:30)
[2019-01-25] MEDS: SODIUM CHLORIDE FLUSH SYRINGE 10 ML IV SCH ×2 (00:30→11:52)
[2019-01-25] MEDS: HumaLOG SUB-Q SCH ×3 (00:47→12:40)
--- NOTE | 2019-01-25 10:11 | Progress Note ---
Assessment and Plan /Cellulites and abscess of left foot with SIRS Continue IV antibiotic therapy, surgery team consulted, wound care consulted, s/p I and D, wound culture growing gram-negative rods - Escherichia coli CT of the left foot showed patient also might have osteomyelitis of the distal aspect of the cuboid Consulted ID for further antibiotic recommendations Per ID: -Discontinued Vancomycin, Discontinue Cefepime Start Ceftriaxone 2gm IV every 24 hours -Continue Flagyl 500mg every 8 hours until 01/23/19 -Anticipate discharge on Ceftriaxone 2 gm IV every 24 hours for 6 weeks ending 03/04/19 -Order placed with case management /Peripheral vascular disease, continue aspirin and statin Consulted vascular - s/p angiogram today / Diabetes mellitus type II, uncontrolled ADA diet, insulin, accu check, hypoglycemia protocol / Hyponatremia likely from hyperglycemia IVF resuscitation therapy, repeat bmp /Lactic acidosis, likely from dehydration and SIRS treat cellulites, IV antibiotic therapy, IV fluid /Status post left foot TMA amputation, cont supportive care /DVT prophylaxis SCD to BLE while in bed, prophylactic lovenox Disposition: Discharge pending on home IV antibiotics set up- patient is unfunded Brief History: 58yo M with diabetes, s/p L TMA (2017) presents with a one-week history of left foot swelling at the amputation site. Patient found to have left foot infection and Gen. surgery was consulted for evaluation and treatment. Radiological data: Foot x-ray: There is been previous amputation of the distal foot near the level of the cuneiform bones. Osteopenia is noted. Soft tissue gas is noted in the distal soft tissues. There also appears to be a moderate size area of ulceration in the plantar surface of the distal foot which contains packing material. This p robably represents a cellulitis. No convincing bony destruction is identified to suggest osteomyelitis on x-ray. If further evaluation is needed, MRI with contrast would provide the most information. He is a murmur or Left foot CT: 1. Approximately 4 cm abscess in the lateral aspect of the residual mid foot stump subjacent to the skin ulcer. 2. Findings suggesting osteomyelitis in the distal aspect of the cuboid. Hospitalist Physical exam: GENERAL: well-developed and well-nourished -[place] male lying on bed appeared to be in no discomfort. HEENT: Normocephalic. Atraumatic. No conjunctival congestion or icterus. Patient has moist mucous membranes. NECK: Supple. Trachea midline. CHEST/LUNGS: Clear to auscultated bilaterally, breathing nonlabored. No wheezes crackles or rhonchi. HEART/CARDIOVASCULAR: Regular in rate and rhythm. S1 and S2 positive. ABDOMEN: Abdomen is soft, nontender. Patient has normal bowel sounds. SKIN: There is no rash. Warm and dry. NEURO: No focal motor deficit. Follows command. MUSCULOSKELETAL: No joint effusion or tenderness. EXTRIMITY: edema, left foot wound dressing PSYCH: Cooperative. Subjective Date of service: 01/24/19 Interval history: Patient seen and examined. Medical records and medication list reviewed. No acute event overnight noted by the RN. Patient denies any chest pain or difficulty breathing. will need IV antibiotics on discharge, ordered for a PICC line Positive MRSA on nares, placed on contact isolation Discussed plan of care at bedside with patient. discharge pending on home iv abx arrangement Objective - Constitutional Vitals: Vital Signs - 12hr 01/25/19 01/25/19 00:34 06:16 Temperature 99.0 F 98.9 F Pulse Rate 69 76 Respiratory 18 18 Rate Blood Pressure 133/86 148/91 O2 Sat by Pulse 100 99 Oximetry - Labs CBC & Chem 7: 01/22/19 05:52 01/22/19 05:52 Labs: Abnormal lab results 01/24/19 01/24/19 01/25/19 Range/Units 11:13 16:24 08:30 POC Glucose 243 H 296 H 285 H (70-105)
[2019-01-25] MEDS: NORVASC PO SCH (11:49)
[2019-01-25] MEDS: ROCEPHIN/NS 2 GM/100 ML 2 GM/100 ML BAG IV SCH (11:49)
[2019-01-25] MEDS: FOLVITE PO SCH (11:51)
[2019-01-25] MEDS: ZESTRIL PO SCH (11:51)
[2019-01-25] MEDS: LOPRESSOR PO SCH (11:53)
[2019-01-25 13:26] VITALS: BP 165/88
== END 2019-01-25 15:00 | disposition home health service (06) | DRG 501 ==
LOC: ED 13:34 → 3A 16:49
PROVIDERS: ADMIT Internal Medicine; ATTEND Internal Medicine
PROC: 3E0234Z Introduction of Serum, Toxoid and Vaccine into Muscle, Percutaneous Approach (ICD-10-PCS; 2019-01-17)
PROC: 0J9R0ZZ Drainage of Left Foot Subcutaneous Tissue and Fascia, Open Approach (ICD-10-PCS; principal; 2019-01-18)
PROC: 02HV33Z Insertion of Infusion Device into Superior Vena Cava, Percutaneous Approach (ICD-10-PCS; 2019-01-20)
PROC: B41D1ZZ Fluoroscopy of Aorta and Bilateral Lower Extremity Arteries using Low Osmolar Contrast (ICD-10-PCS; 2019-01-22)
PROC: B44LZZZ Ultrasonography of Femoral Artery (ICD-10-PCS; 2019-01-22)
PROC: B41J1ZZ Fluoroscopy of Other Lower Arteries using Low Osmolar Contrast (ICD-10-PCS; 2019-01-22)
DX: T87.44 Infection of amputation stump, left lower extremity (principal); E87.2 Acidosis; L03.116 Cellulitis of left lower limb; R65.10 Systemic inflammatory response syndrome (SIRS) of non-infectious origin without acute organ dysfunction; L02.612 Cutaneous abscess of left foot; M86.8X7 Other osteomyelitis, ankle and foot; E87.1 Hypo-osmolality and hyponatremia; L97.422 Non-pressure chronic ulcer of left heel and midfoot with fat layer exposed; Y83.8 Other surgical procedures as the cause of abnormal reaction of the patient, or of later complication, without mention of misadventure at the time of the procedure; M85.80 Other specified disorders of bone density and structure, unspecified site; E11.51 Type 2 diabetes mellitus with diabetic peripheral angiopathy without gangrene; E11.69 Type 2 diabetes mellitus with other specified complication; E11.65 Type 2 diabetes mellitus with hyperglycemia; E86.0 Dehydration; I10 Essential (primary) hypertension; E11.621 Type 2 diabetes mellitus with foot ulcer; Z82.49 Family history of ischemic heart disease and other diseases of the circulatory system; Y92.89 Other specified places as the place of occurrence of the external cause; Z79.4 Long term (current) use of insulin; Z79.899 Other long term (current) drug therapy; Z83.3 Family history of diabetes mellitus; Z72.89 Other problems related to lifestyle; Z23 Encounter for immunization
CPT/HCPCS: 36247; 36415; 71045; 75625; 75710; 76937; 80048; 80053; 80202; 82140; 82962; 85025; 85652; 86140; 87040; 87075; 87076; 87116; 87186; 90715; 93925; 96361; 96365; 96367; 96372; G0378; C1725; C1760; C1887; J0692; J0696; J1170; J1644; J1650; J1815; J2250; J3010; J3370; J7030; J7040; J7050; Q9967

== ENCOUNTER 2019-01-26 08:06 | Outpatient (CLI) | payer OTHER ==
[2019-01-26] MEDS ORDERED: AD OINTMENT TP SCH (09:00)
[2019-01-26] MEDS ORDERED: XYLOCAINE TOPICAL 4% TP ONE (09:00)
== END 2019-01-26 08:07 | disposition home or self-care (01) ==
LOC: WOUND 08:06
PROVIDERS: ATTEND Surgery
DX: T87.89 Other complications of amputation stump (principal); E11.621 Type 2 diabetes mellitus with foot ulcer; L97.522 Non-pressure chronic ulcer of other part of left foot with fat layer exposed; I10 Essential (primary) hypertension; Z87.891 Personal history of nicotine dependence; Y83.5 Amputation of limb(s) as the cause of abnormal reaction of the patient, or of later complication, without mention of misadventure at the time of the procedure
CPT/HCPCS: 11042; G0463; 99215; A6250

== ENCOUNTER 2019-02-09 09:11 | Outpatient (CLI) | payer OTHER | END 2019-02-09 09:12 | disposition home or self-care (01) | LOC: WOUND 09:11 | PROVIDERS: ATTEND Surgery | DX: T87.89 Other complications of amputation stump (principal); E11.621 Type 2 diabetes mellitus with foot ulcer; L97.522 Non-pressure chronic ulcer of other part of left foot with fat layer exposed; I10 Essential (primary) hypertension; Z87.891 Personal history of nicotine dependence; Y83.5 Amputation of limb(s) as the cause of abnormal reaction of the patient, or of later complication, without mention of misadventure at the time of the procedure ==

== ENCOUNTER 2019-03-02 09:50 | Outpatient (CLI) | payer MEDICAID, OTHER ==
[2019-03-02] MEDS ORDERED: LIDOCAINE (4%) 40 MG/ML TOPICAL SOLN 50 ML BOTTLE TP ONE (10:30)
== END 2019-03-02 09:51 | disposition home or self-care (01) ==
LOC: WOUND 09:50
PROVIDERS: ATTEND Surgery
DX: T87.89 Other complications of amputation stump (principal); E11.621 Type 2 diabetes mellitus with foot ulcer; L97.522 Non-pressure chronic ulcer of other part of left foot with fat layer exposed; E11.65 Type 2 diabetes mellitus with hyperglycemia; I10 Essential (primary) hypertension; Z87.891 Personal history of nicotine dependence; Y83.5 Amputation of limb(s) as the cause of abnormal reaction of the patient, or of later complication, without mention of misadventure at the time of the procedure

== ENCOUNTER 2019-03-09 09:50 | Outpatient (CLI) | payer SELFPAY | END 2019-03-09 09:51 | disposition home or self-care (01) | LOC: WOUND 09:50 | PROVIDERS: ATTEND Surgery | DX: T87.89 Other complications of amputation stump (principal); E11.621 Type 2 diabetes mellitus with foot ulcer; L97.522 Non-pressure chronic ulcer of other part of left foot with fat layer exposed; L84 Corns and callosities; E11.65 Type 2 diabetes mellitus with hyperglycemia; I10 Essential (primary) hypertension; Z87.891 Personal history of nicotine dependence; Y83.5 Amputation of limb(s) as the cause of abnormal reaction of the patient, or of later complication, without mention of misadventure at the time of the procedure ==